=== PATIENT | male | born 1950 | race Caucasian/White ===

== ENCOUNTER 2016-07-19 14:10 | Inpatient (IN) | payer MEDICARE, OTHER ==
[~2016-07-19] VITALS: Ht 177.8 cm; Wt 93.8 kg
[~2016-07-19 14:10] MED LIST: CILO50TA PO; GLIP5 PO; LISI-360 PO; NEUR400C PO; NOVO7030P2 SQ; PRIL40CA PO; SILD20TA PO; SIMV20TA PO
[2016-07-20] VITALS (9 sets, daily range): BP systolic 128–157; BP diastolic 67–74; PULSE 61–69; RESP 18–22; TEMP 98.2–98.5; O2SAT 95–96
[2016-07-20] MEDS ORDERED: METOPROLOL TARTRATE 25 MG TAB PO PRN (17:00)
[2016-07-20] MEDS: SODIUM CHLORID 0.9% 500 ML IV SCH (17:00)
[2016-07-20] MEDS: LACTATED RINGER'S 1000 ML IV SCH (17:00)
[2016-07-20] MEDS ORDERED: INSULIN HUMAN REGULAR 1,000 UNITS/10 ML VIAL SQ PRN (17:00)
[2016-07-20] MEDS ORDERED: ACETAMINOPHEN 325 MG TAB PO PRN (17:15)
[2016-07-20] MEDS ORDERED: CEFAZOLIN 500 MG in NS IRR BTL 500 ML IRRIGATION SCH (17:15)
[2016-07-20] MEDS ORDERED: PAPAVERINE 60 MG-NITROGLYCERIN 100 MCG-DILTIAZEM 100 MG in NS 100 ML IRRIGATION SCH ×4 (17:15)
[2016-07-20] MEDS ORDERED: MAGNESIUM HYDROXIDE SUSP 30 ML CUP PO PRN (17:15)
[2016-07-20] MEDS ORDERED: ONDANSETRON HCL 4 MG/2 ML VIAL IV PRN (17:15)
[2016-07-20] MEDS ORDERED: CHLORHEXIDINE GLUCONATE 4% SOLN 120 ML BTL TOPICAL SCH (17:15)
[2016-07-20] MEDS ORDERED: INSULIN REGULAR 100 UNITS in NS 100 ML IV SCH (17:15)
[2016-07-20] MEDS ORDERED: SODIUM CHLORIDE 0.9% FLUSH 5 ML FLUSH IV FLUSH PRN (17:15)
[2016-07-20] MEDS ORDERED: METOPROLOL TARTRATE 25 MG TAB PO SCH (17:15)
[2016-07-20] MEDS ORDERED: MEDIUM DOSE INSULIN NOVOLIN REGULAR SUPPLEMENTAL SCALE SQ SCH (17:26)
[2016-07-20] MEDS ORDERED: GLUCAGON 1 MG/ML VIAL OTHER PRN (17:30)
[2016-07-20] MEDS ORDERED: DEXTROSE 50% IN WATER 50 ML VIAL(D50) IV PUSH PRN (17:30)
[2016-07-20] MEDS: GABAPENTIN 100 MG CAP PO SCH (18:42)
[2016-07-20] MEDS: ASPIRIN EC 81 MG TABEC PO SCH (18:44)
[2016-07-20] MEDS: DOCUSATE SODIUM 100 MG CAP PO SCH (20:21)
[2016-07-20] MEDS: METOPROLOL TARTRATE 25 MG TAB PO SCH (20:22)
[2016-07-20] MEDS: ZOLPIDEM TARTRATE 5 MG TAB PO PRN (20:22)
[2016-07-20] MEDS: ATORVASTATIN 40 MG TAB PO SCH (20:22)
[2016-07-20] MEDS: SODIUM CHLORIDE 0.9% FLUSH 5 ML FLUSH IV FLUSH SCH (20:23)
[2016-07-20] MEDS: INSULIN HUMAN NPH/R 70/30 1,000 UNITS/10 ML VIAL SQ SCH (20:25)
[2016-07-20] MEDS: MEDIUM DOSE INSULIN NOVOLOG SUPPLEMENTAL SCALE SQ SCH (20:32)
[2016-07-21] VITALS (24 sets, daily range): BP systolic 134–164; BP diastolic 62–80; PULSE 53–69; RESP 16–26; TEMP 97.1–98.1; O2SAT 97–98
[2016-07-21 04:59] LABS: BLOOD, URINE NEG (NEG); COMMENT (UR) CULT NOT INDICATED; CULTURE IF INDICATED CULT NOT INDICATED; GLUCOSE,URINE 1000 mg/dL (NEG); KETONE, URINE NEG (NEG); MUCUS URINE FEW /lpf (OCC); NITRITE,URINE NEG (NEG); SQUAMOUS EPITHELIAL CELL URINE <1 /hpf (0-5); URINE COLOR YELLOW (YELLW/STRAW)
[2016-07-21 05:43] LABS: AUTOMATED NEUTROPHIL # 4.3 TH/MM3 (1.8-7.7); BASOPHIL % 0.3 % (0.0-2.0); EOSINOPHIL # 0.2 TH/MM3 (0-0.4); EOSINOPHIL % 2.5 % (0.0-4.0); HEMATOCRIT 42.3 % (39.0-51.0); HEMO FLAGS DIFF FINAL; LYMPH % 23.7 % (9.0-44.0); LYMPHOCYTE # 1.5 TH/MM3 (1.0-4.8); MEAN CELL VOLUME 88.9 FL (80.0-100.0); MEAN CORPUSCULAR HEMOGLOBIN 31.1 PG (27.0-34.0); MONO % 7.8 % (0.0-8.0); NEUT % 65.7 % (16.0-70.0); PLATELET COUNT 168 TH/MM3 (150-450); RED BLOOD COUNT 4.76 MIL/MM3 (4.50-5.90); RED CELL DISTRIBUTION WIDTH 12.8 % (11.6-17.2); WHITE BLOOD COUNT 6.5 TH/MM3 (4.0-11.0)
[2016-07-21] MEDS: MEDIUM DOSE INSULIN NOVOLOG SUPPLEMENTAL SCALE SQ SCH ×4 (05:45→21:41)
[2016-07-21 05:55] LABS: BICARBONATE 24.3 MEQ/L (21.0-32.0); POTASSIUM 4.2 MEQ/L (3.5-5.1)
[2016-07-21 06:29] LABS: PROTHROMBIN TIME - PATIENT 10.5 SEC (9.8-11.6)
[2016-07-21] MEDS: METOPROLOL TARTRATE 25 MG TAB PO SCH ×2 (08:43→21:41)
[2016-07-21] MEDS: DOCUSATE SODIUM 100 MG CAP PO SCH ×2 (08:43→21:41)
[2016-07-21] MEDS: GABAPENTIN 100 MG CAP PO SCH ×3 (08:43→18:26)
[2016-07-21] MEDS: SODIUM CHLORIDE 0.9% FLUSH 5 ML FLUSH IV FLUSH SCH ×2 (08:44→21:54)
[2016-07-21] MEDS: ACETAMINOPHEN/HYDROcodone 325 MG/5 MG TAB PO PRN ×2 (08:44→17:03)
[2016-07-21] MEDS: ASPIRIN EC 81 MG TABEC PO SCH (08:44)
[2016-07-21] MEDS: INSULIN HUMAN NPH/R 70/30 1,000 UNITS/10 ML VIAL SQ SCH ×2 (08:44→21:41)
--- NOTE | 2016-07-21 09:21 | RADRPT ---
EXAM DATE/TIME: 07/21/2016 08:10 [facility] COMPARISON: US CAROTID ARTERIES, November 23, 2015, 2:41. INDICATIONS : Pre-op cardiac surgery. MEDICAL HISTORY : Dementia. Hypercholesterolemia. Hypertension. Gastroesophageal reflux. GERD. Diabetes. SURGICAL HISTORY : Neck surgery. Left leg surgery. ENCOUNTER: Subsequent ACUITY: 1 day PAIN SCORE: 0/10 LOCATION: Bilateral neck PEAK SYSTOLIC VELOCITIES (cm/sec): ICA/CCA RATIO: Right: 1.3 Left: 0.8 ICA: Right: 88 Left: 78 CCA: Right: 70 Left: 95 ECA: Right: 88 Left: 195 VERTEBRAL: Right: 66 antegrade Left: 58 antegrade Elevated flow velocities and ICA/CCA ratios have been found to correlate with increased degrees of vessel stenosis, calculated as percentage of diameter relative to a normal segment of distal ICA/CCA FINDINGS: RIGHT CAROTID: Mild plaque of the bulb and proximal internal carotid artery. LEFT CAROTID: Mild plaque of the bulb and proximal internal carotid artery. VERTEBRAL ARTERIES: Antegrade flow is seen in both vertebral arteries. MISCELLANEOUS: None. CONCLUSION: Mild atherosclerotic plaque of both carotid bifurcations. No hemodynamically significant narrowing. Michael Luque MD on July 21, 2016 at 9:19 Board Certified Radiologist. This report was verified electronically.
--- NOTE | 2016-07-21 09:23 | RADRPT ---
EXAM DATE/TIME: 07/21/2016 07:19 [facility] COMPARISON: No previous studies available for comparison. INDICATIONS : Pre-op cardiac surgery. MEDICAL HISTORY : Dementia. Hypercholesterolemia. Gastroesophageal reflux disease. Hypertension. GERD. Diabetes. SURGICAL HISTORY : Neck surgery. Left leg surgery. ENCOUNTER: Initial ACUITY: 1 day PAIN SCORE: 0/10 LOCATION: Bilateral legs. TECHNIQUE: Venous ultrasound of the left and right leg was performed from the inguinal ligament to the proximal calf. Real-time, color Doppler and spectral tracing, compression and augmentation techniques were us ed. FINDINGS: RIGHT LEG: There is normal compressibility of the deep venous system from the inguinal region to the proximal ca lf. No echogenic clot is seen in the lumen of the common femoral, femoral, popliteal, and posterior tibial veins. There is a normal response of the venous system to proximal and distal augmentation an d respiration. LEFT LEG: There is normal compressibility of the deep venous system from the inguinal region to the proximal ca lf. No echogenic clot is seen in the lumen of the common femoral, femoral, popliteal, and posterior tibial veins. There is a normal response of the venous system to proximal and distal augmentation an d respiration. CONCLUSION: Normal. No DVT of either lower extremity. Michael Luque MD on July 21, 2016 at 9:21 Board Certified Radiologist. This report was verified electronically.
--- NOTE | 2016-07-21 09:34 | RADRPT ---
EXAM DATE/TIME: 07/21/2016 07:32 [facility] COMPARISON: No previous studies available for comparison. INDICATIONS : Pre-op cardiac surgery. MEDICAL HISTORY : Hypercholesterolemia. Dementia. Gastroesophageal reflux disease. Hypertension. GERD. Diabetes. SURGICAL HISTORY : Neck surgery. Left leg surgery. ENCOUNTER: Initial ACUITY: 1 day PAIN SCORE: 0/10 LOCATION: Bilateral legs. GREATER SAPHENOUS VEIN THIGH: PROXIMAL: Right 5 mm Left 5 mm MID: Right 4 mm Left 3 mm DISTAL: Right 3 mm Left 2 mm CALF: PROXIMAL: Right 2 mm Left 2 mm MID: Right 2 mm Left 2 mm DISTAL: Right 3 mm Left 2 mm FINDINGS: The venous system of the lower extremities are patent by color Doppler imaging. Measurements of the leg veins (in mm) are listed above. CONCLUSION: Study within normal limits. Vessel measurements as above. Michael Luque MD on July 21, 2016 at 9:32 Board Certified Radiologist. This report was verified electronically.
[2016-07-21] MEDS: SODIUM CHLORID 0.9% 500 ML IV SCH (09:40)
--- NOTE | 2016-07-21 10:18 | PD.CAR.PN ---
CVT Progress Note Subjective/Hospital Course: Pain free Awaiting cath films from [facility] Objective: Vital Signs Date Time Temp Pulse Resp B/P Pulse Ox O2 Delivery O2 Flow Rate FiO2 07/21/16 09:00 58 07/21/16 08:00 58 07/21/16 07:15 62 07/21/16 07:15 97.8 62 18 154/70 97 07/21/16 06:00 58 07/21/16 05:00 68 07/21/16 04:00 97.9 63 22 163/80 97 07/21/16 04:00 59 07/21/16 03:00 62 07/21/16 02:00 62 07/21/16 01:00 58 07/21/16 00:00 59 07/21/16 00:00 98.1 61 22 134/62 97 07/20/16 23:00 63 07/20/16 22:00 64 07/20/16 21:00 69 07/20/16 20:00 63 07/20/16 20:00 98.5 64 22 128/67 95 07/20/16 19:00 67 07/20/16 18:00 67 07/20/16 17:00 67 07/20/16 16:15 98.2 61 18 157/74 96 07/20/16 16:00 65 Labs: Laboratory Tests Test 07/21/16 07/21/16 07/21/16 07/21/16 01:00 04:30 05:24 05:30 Nasal Screen MRSA (PCR) NEGATIVE (NEGATIVE) Urine Color YELLOW (YELLW/STRAW) Urine Turbidity CLEAR (CLEAR) Urine pH 6.0 (5.0-8.5) Urine Specific [place] 1.028 (1.002-1.035) Urine Protein TRACE mg/dL (NEG-TRACE) Urine Glucose (UA) 1000 mg/dL (NEG) Urine Ketones NEG mg/dL (NEG) Urine Occult Blood NEG (NEG) Urine Nitrite NEG (NEG) Urine Bilirubin NEG (NEG) Urine Urobilinogen LESS THAN 2.0 MG/DL (LESS THAN 2.0) Urine Leukocyte Esterase NEG (NEG) Urine WBC 1 /hpf (0-5) Urine Squamous Epithelial <1 /hpf (0-5) Cells Urine Mucus FEW /lpf (OCC) Microscopic Urinalysis Comment CULT NOT INDICATED White Blood Count 6.5 TH/MM3 (4.0-11.0) Red Blood Count 4.76 MIL/MM3 (4.50-5.90) Hemoglobin 14.8 GM/DL (13.0-17.0) Hematocrit 42.3 % (39.0-51.0) Mean Corpuscular Volume 88.9 FL (80.0-100.0) Mean Corpuscular Hemoglobin 31.1 PG (27.0-34.0) Mean Corpuscular Hemoglobin 35.0 % Concent (32.0-36.0) Red Cell Distribution Width 12.8 % (11.6-17.2) Platelet Count 168 TH/MM3 (150-450) Mean Platelet Volume 8.2 FL (7.0-11.0) Neutrophils (%) (Auto) 65.7 % (16.0-70.0) Lymphocytes (%) (Auto) 23.7 % (9.0-44.0) Monocytes (%) (Auto) 7.8 % (0.0-8.0) Eosinophils (%) (Auto) 2.5 % (0.0-4.0) Basophils (%) (Auto) 0.3 % (0.0-2.0) Neutrophils # (Auto) 4.3 TH/MM3 (1.8-7.7) Lymphocytes # (Auto) 1.5 TH/MM3 (1.0-4.8) Monocytes # (Auto) 0.5 TH/MM3 (0-0.9) Eosinophils # (Auto) 0.2 TH/MM3 (0-0.4) Basophils # (Auto) 0.0 TH/MM3 (0-0.2) CBC Comment DIFF FINAL Differential Comment Prothrombin Time 10.5 SEC (9.8-11.6) Prothromb Time International 1.0 RATIO Ratio Sodium Level 137 MEQ/L (136-145) Potassium Level 4.2 MEQ/L (3.5-5.1) Chloride Level 102 MEQ/L (98-107) Carbon Dioxide Level 24.3 MEQ/L (21.0-32.0) Anion Gap 11 MEQ/L (5-15) Blood Urea Nitrogen 19 MG/DL (7-18) Creatinine 0.85 MG/DL (0.60-1.30) Estimat Glomerular Filtration 90 ML/MIN (>89) Rate Random Glucose 342 MG/DL (74-106) Calcium Level 9.1 MG/DL (8.5-10.1) Blood Type A POSITIVE A POSITIVE Antibody Screen NEGATIVE Crossmatch Leukocyte-Reduced Red Blood Cells Blood Bank Comment Result Diagram: 07/21/1652307/21/1624 Kierra Sanz MD Jul 21, 2016 10:18
--- NOTE | 2016-07-21 10:42 | RADRPT ---
EXAM DATE/TIME: 07/21/2016 10:04 [facility] COMPARISON: CHEST SINGLE AP, November 22, 2015, 17:40. INDICATIONS : Evaluate for Pneumonia, Pneumothorax, or Communicable Disease. Preop CABG. MEDICAL HISTORY : Dementia. Hypercholesterolemia. Hypertension. Gastroesophageal reflux. GERD. Diabetes. SURGICAL HISTORY : Neck surgery. Left leg surgery. ENCOUNTER: Initial ACUITY: 1 day PAIN SCORE: 0/10 LOCATION: Bilateral chest FINDINGS: A single view of the chest demonstrates the lungs to be symmetrically aerated without evidence of mas s, infiltrate or effusion. The cardiomediastinal contours are unremarkable. Osseous structures are intact. CONCLUSION: No evidence of acute cardiopulmonary disease. Michael Luque MD on July 21, 2016 at 10:40 Board Certified Radiologist. This report was verified electronically.
[2016-07-21] MEDS: LACTATED RINGER'S 1000 ML IV SCH (17:00)
[2016-07-21] MEDS: ZOLPIDEM TARTRATE 5 MG TAB PO PRN (21:42)
[2016-07-21] MEDS: ATORVASTATIN 40 MG TAB PO SCH (21:50)
[2016-07-22] VITALS (25 sets, daily range): BP systolic 112–157; BP diastolic 54–79; PULSE 49–76; RESP 16–18; TEMP 97.9–98.5; O2SAT 95–97
[2016-07-22] MEDS: MEDIUM DOSE INSULIN NOVOLOG SUPPLEMENTAL SCALE SQ SCH ×4 (06:06→21:27)
[2016-07-22] MEDS: GABAPENTIN 100 MG CAP PO SCH ×3 (08:38→16:34)
[2016-07-22] MEDS: ASPIRIN EC 81 MG TABEC PO SCH (08:39)
[2016-07-22] MEDS: DOCUSATE SODIUM 100 MG CAP PO SCH ×2 (08:39→21:27)
[2016-07-22] MEDS: INSULIN HUMAN NPH/R 70/30 1,000 UNITS/10 ML VIAL SQ SCH ×2 (08:39→21:28)
[2016-07-22] MEDS: METOPROLOL TARTRATE 25 MG TAB PO SCH ×2 (08:39→21:00)
[2016-07-22] MEDS: SODIUM CHLORIDE 0.9% FLUSH 5 ML FLUSH IV FLUSH SCH ×2 (09:00→21:27)
[2016-07-22] MEDS ORDERED: PANTOPRAZOLE SOD 40 MG DELAYED RELEASE TAB PO ONE (16:30)
[2016-07-22] MEDS: ACETAMINOPHEN/HYDROcodone 325 MG/5 MG TAB PO PRN (16:35)
--- NOTE | 2016-07-22 16:46 | PD.CAR.PN ---
CVT Progress Note Subjective/Hospital Course: sts discussed with pt RISK SCORES About the STS Risk Calculator Procedure: CAB Only Risk of Mortality: 0.647% Morbidity or Mortality: 7.845% Long Length of Stay: 3.261% Short Length of Stay: 59.262% Permanent Stroke: 0.418% Prolonged Ventilation: 4.792% DSW Infection: 0.576% Renal Failure: 1.462% Reoperation: 3.576% Objective: Vital Signs Date Time Temp Pulse Resp B/P Pulse Ox O2 Delivery O2 Flow Rate FiO2 07/22/16 15:00 68 07/22/16 14:00 61 07/22/16 13:00 60 07/22/16 12:00 62 07/22/16 11:00 62 07/22/16 11:00 98.0 61 17 112/54 95 07/22/16 10:00 66 07/22/16 09:00 59 07/22/16 08:00 97.9 63 17 151/73 96 07/22/16 08:00 63 07/22/16 07:00 62 07/22/16 06:00 55 07/22/16 05:00 62 07/22/16 04:00 52 07/22/16 03:00 53 07/22/16 03:00 98.0 55 18 157/74 97 07/22/16 02:00 49 07/22/16 01:00 55 07/22/16 00:00 59 07/21/16 23:00 97.1 61 17 143/74 98 07/21/16 23:00 54 07/21/16 22:00 61 07/21/16 21:00 57 07/21/16 20:00 69 07/21/16 19:00 60 07/21/16 19:00 97.7 66 26 164/71 98 07/21/16 18:00 62 07/21/16 17:00 62 Result Diagram: 07/21/16 0524 07/21/16 0524 Freda Betancourt Jul 22, 2016 16:46
[2016-07-22] MEDS: LACTATED RINGER'S 1000 ML IV SCH (17:00)
[2016-07-22] MEDS: ATORVASTATIN 40 MG TAB PO SCH (21:26)
[2016-07-23] VITALS (26 sets, daily range): BP systolic 110–157; BP diastolic 58–83; PULSE 56–76; RESP 16–18; TEMP 97.6–98.3; O2SAT 94–99
[2016-07-23] MEDS: MEDIUM DOSE INSULIN NOVOLOG SUPPLEMENTAL SCALE SQ SCH ×4 (06:27→21:51)
--- NOTE | 2016-07-23 08:08 | MH ---
cc: CHEYENNE UPTON DATE OF ADMISSION 07/20/2016 DATE OF 1950 HISTORY OF THE PRESENT ILLNESS A 66-year-old male, a patient of [facility] at the [facility], Dr. Zan Hubbard, lives in the local area but was going to a restaurant in [place] and before they got in he started having some excruciating chest pain, about 10/10 while walking, resolved with rest, associated with some diaphoresis. He had no nausea or vomiting. It lasted about 5 minutes. No similar history. No history of cardiac disease. No recent fever, chills, cough. Presented to the emergency room with unstable angina. Underwent cardiac cath by Dr. Zan Hubbard on 07/19/2016. There was a right dominant system. The LAD had 80% mid lesion, distal lesion had a 40%, right PDA had 90% stenosis, EF of 50-55%. The patient was transferred to our facility to be evaluated for coronary artery bypass grafting. PAST MEDICAL HISTORY The patient's past medical history significant for: 1. Diabetes mellitus. 2. Gastroesophageal reflux disease. 3. Hyperlipidemia. 4. Hypertension. 5. Peripheral neuropathy. PAST SURGICAL HISTORY Surgeries include: Tonsillectomy. He is [facility] with the [facility] for being exposed to Agent [place]. ALLERGIES INCLUDE METFORMIN. MEDICATIONS Home meds include: 1. Lisinopril 10 p.o. daily. 2. Gabapentin 900 q.i.d. 3. Simvastatin 40 daily. 4. Novolin 70/30. He takes 40 units b.i.d. 5. He takes Viagra p.r.n. 6. Cilostazol 50 mg b.i.d. 7. Omeprazole. 8. Glipizide 5 p.o. daily. FAMILY HISTORY Mother from heart attack at 84. He had an uncle that at 56 from heart attack, two brothers that had heart attacks, one at 55 and one at 60. Father from cancer. SOCIAL HISTORY The patient , retired. One child. He smoked for 40 years two packs, he quit seven years ago. Quit drinking alcohol seven years ago. 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 REVIEW OF SYSTEMS GENERAL: No night sweats, fever, heat or cold intolerance. SKIN: No psoriasis, itching or hives. HEENT: No blurred vision, hearing loss. RESPIRATORY: No cough or shortness of breath. CARDIOVASCULAR: As above in the history of present illness. GASTROINTESTINAL: No diarrhea, vomiting. GENITOURINARY: No burning, frequency, urgency CENTRAL NERVOUS SYSTEM: No history of TIA, CVA, seizure disorder. ENDOCRINOLOGY: Positive for diabetes. No hypothyroidism. PHYSICAL EXAMINATION VITAL SIGNS: On exam blood pressure 112/60, heart rate 60, afebrile. O2 saturation 95% on room air. GENERAL: The patient is awake, alert, in no acute distress. HEENT: Head is normocephalic, atraumatic. Pupils equal and reactive. Oral mucosa pink, moist. NECK: Supple. No JVD. CARDIOVASCULAR: Heart sounds S1-S2, regular rate and rhythm. No rubs, murmurs or gallops. LUNGS: Clear to auscultation. No wheezes, rales or rhonchi. ABDOMEN: Soft, nontender. No masses or organomegaly. EXTREMITIES: No cyanosis, clubbing or edema. LABORATORY DATA ____ screen negative. Hematology, hemoglobin 14, hematocrit of 42, white cell count of 6.5, platelet count 168. Sodium 137, potassium 4.2, BUN 19, creatinine 0.85, random glucose was 342. Urinalysis is unremarkable. IMAGING Chest x-ray with no acute process. Carotid ultrasound, mild plaque of both carotid bifurcations. No hemodynamically significant narrowing. ultrasound of the lower extremities completed, no DVT of either lower extremity. IMPRESSION 1. This is a 66-year-old male with risk factors including age, hypertension, hyperlipidemia, status post heart catheterization with multivessel disease and EF of 50-55%. Cardiac films have been reviewed by Dr. Cheyenne Upton. Plan will be for coronary artery bypass grafting on Friday. Procedures, alternatives and risks have been discussed with the patient. He is agreeable to proceed. STS data will be also discussed with the patient and documented in the electronic record. 2. Diabetes mellitus with elevated blood sugars. We will increase his NovoLog 70/30 and re add his Glucotrol. Diabetic diet and executive community planning to speak with the patient. 3. Hyperlipidemia. Continue statin. 4. Hypertension. Stable at this time. We will continue to follow. DICTATED BY: GILMA Maddox Cheyenne MD MATILDE Corea/VALERIO /4:39 PM /8:07 AM
[2016-07-23] MEDS: PANTOPRAZOLE SOD 40 MG DELAYED RELEASE TAB PO SCH (08:38)
[2016-07-23] MEDS: DOCUSATE SODIUM 100 MG CAP PO SCH ×2 (08:39→21:44)
[2016-07-23] MEDS: GABAPENTIN 100 MG CAP PO SCH ×3 (08:39→18:14)
[2016-07-23] MEDS: ASPIRIN EC 81 MG TABEC PO SCH (08:40)
[2016-07-23] MEDS: METOPROLOL TARTRATE 25 MG TAB PO SCH ×2 (08:40→21:45)
[2016-07-23] MEDS: INSULIN HUMAN NPH/R 70/30 1,000 UNITS/10 ML VIAL SQ SCH ×2 (08:41→21:44)
[2016-07-23] MEDS: SODIUM CHLORIDE 0.9% FLUSH 5 ML FLUSH IV FLUSH SCH ×2 (08:41→21:45)
[2016-07-23] MEDS ORDERED: GABA300C5 PO (15:03)
[2016-07-23] MEDS ORDERED: SERT-129 PO (15:04)
[2016-07-23] MEDS ORDERED: MELO7.5T4 PO (15:06)
[2016-07-23] MEDS ORDERED: ASPI1TAB69 PO (15:07)
[2016-07-23] MEDS ORDERED: OMEP20TA PO (15:07)
[2016-07-23] MEDS ORDERED: TRAM50TA PO (15:08)
[2016-07-23] MEDS ORDERED: LISI-515 PO (15:09)
[2016-07-23] MEDS ORDERED: CILO100T PO (15:09)
[2016-07-23] MEDS ORDERED: METO25TA6 PO (15:10)
[2016-07-23] MEDS ORDERED: SIMV80TA PO (15:11)
[2016-07-23] MEDS ORDERED: ZOLP10TA3 PO (15:11)
[2016-07-23] MEDS ORDERED: NOVO7030P2 SQ (15:12)
[2016-07-23] MEDS ORDERED: NITROGLYCERIN 0.4 MG SL 25 TABS/BTL SL PRN (15:45)
--- NOTE | 2016-07-23 15:58 | PD.CAR.PN ---
CVT Progress Note Subjective/Hospital Course: 66/ male transfer from [facility] ED 07/18 c/o of chest pain , no prior cardiac hx , underwent cardiac cath by Dr Christian Hubbard multi vessel disease / 80% mid LAD, Left Circ 70%, PDA 90% EF 50% risk factors: age, DM, HTN, PMH: DM insulin dependent , HTN, 100% disabled from [facility] ( agent orange exposure ) prior heavy tobacco abuse 07/23 await surgery scheduled in am , had slight chest pain this afternoon, relieved with nitro on room air , insulin adjusted for elevated BGM's Objective: GENERAL: SKIN: Warm and dry. HEAD: Normocephalic. EYES: No scleral icterus. No injection or drainage. NECK: Supple, trachea midline. No JVD or lymphadenopathy. CARDIOVASCULAR: Regular rate and rhythm without murmurs, gallops, or rubs. RESPIRATORY: Breath sounds equal bilaterally. No accessory muscle use. GASTROINTESTINAL: Abdomen soft, non-tender, nondistended. MUSCULOSKELETAL: No cyanosis, or edema. BACK: Nontender without obvious deformity. No CVA tenderness. Vital Signs Date Time Temp Pulse Resp B/P Pulse Ox O2 Delivery O2 Flow Rate FiO2 07/23/16 15:00 98.1 66 16 123/64 97 07/23/16 15:00 62 07/23/16 14:00 69 07/23/16 13:00 73 07/23/16 12:00 68 07/23/16 11:00 65 07/23/16 11:00 98.1 62 17 157/83 97 07/23/16 10:00 62 07/23/16 09:00 67 07/23/16 08:00 67 07/23/16 07:30 97.8 64 18 155/77 99 07/23/16 07:00 60 07/23/16 06:00 59 07/23/16 05:00 68 07/23/16 04:00 62 07/23/16 04:00 97.6 64 16 127/74 98 07/23/16 03:00 56 07/23/16 02:00 58 07/23/16 01:00 62 07/23/16 00:00 60 07/22/16 23:30 97.9 71 16 136/67 97 07/22/16 23:00 61 07/22/16 22:00 63 07/22/16 21:00 67 07/22/16 20:00 67 07/22/16 20:00 98.0 65 16 157/79 97 07/22/16 19:00 68 07/22/16 18:00 75 07/22/16 17:00 76 07/22/16 16:00 67 Result Diagram: 07/21/1652307/21/16523 Telemetry: NSR (1) Coronary artery disease Plan: on statin ASA, BB (2) Hypertension Plan: controlled (3) GERD (gastroesophageal reflux disease) Plan: PPI (4) Type 2 diabetes mellitus Plan: on insulin sliding scale, Novolog 70/30 diabetic diet visual educator consult Freda Betancourt Jul 23, 2016 15:58
[2016-07-23] MEDS: LACTATED RINGER'S 1000 ML IV SCH (16:28)
[2016-07-23] MEDS: NITROGLYCERIN 2% OINT 1 GM PACKET TOPICAL SCH ×2 (18:14→22:37)
[2016-07-23] MEDS: ATORVASTATIN 40 MG TAB PO SCH (21:45)
[2016-07-23] MEDS: ZOLPIDEM TARTRATE 5 MG TAB PO PRN (21:51)
[2016-07-24] VITALS (21 sets, daily range): BP systolic 98–146; BP diastolic 53–86; PULSE 61–84; RESP 7–19; TEMP 97.6–98.2; O2SAT 96–99
[2016-07-24] MEDS ORDERED: CALCIUM CHLORIDE 10% SOLN 1 GRAM/10 ML SYR IV ONE (05:00)
[2016-07-24] MEDS ORDERED: PHENYLEPHRINE HCL 10 MG/ML VIAL IV ONE (05:00)
[2016-07-24] MEDS ORDERED: PROTAMINE SULFATE 250 MG/25 ML VIAL IV ONE (05:00)
[2016-07-24] MEDS ORDERED: NITROGLYCERIN-DEXTROSE INJ 250 ML IV ONE (05:00)
[2016-07-24] MEDS ORDERED: HEPARIN SODIUM - SQ 10,000 UNITS/ML VIAL SQ ONE (05:00)
[2016-07-24] MEDS ORDERED: ARTIFICIAL TEARS OPTH OINT 3.5 APPLIC/3.5 GM TUBO ONE (05:00)
[2016-07-24] MEDS ORDERED: GLYCOPYRROLATE 0.2 MG/ML VIAL IV ONE (05:00)
[2016-07-24] MEDS ORDERED: MAGNESIUM SULFATE 1000 MG/2 ML VIAL (PED) IV ONE (05:00)
[2016-07-24] MEDS ORDERED: AMINOCAPROIC ACID INJ 250 MG/ML 20 ML VIAL IV ONE (05:00)
[2016-07-24] MEDS ORDERED: VECURONIUM BROMIDE 10 MG VIAL IV ONE (05:00)
[2016-07-24] MEDS: METOPROLOL TARTRATE 25 MG TAB PO SCH ×2 (05:36→09:00)
[2016-07-24] MEDS: LACTATED RINGER'S 1000 ML IV SCH ×2 (05:45→17:00)
[2016-07-24] MEDS: NITROGLYCERIN 2% OINT 1 GM PACKET TOPICAL SCH (06:00)
[2016-07-24] MEDS ORDERED: SODIUM CHLORID 0.9% 500 ML IV SCH (06:30)
[2016-07-24] MEDS ORDERED: LACTATED RINGER'S 1000 ML IV SCH (06:30)
[2016-07-24] MEDS ORDERED: methylPREDNISolone SOD SUCC 125 MG/2 ML VIAL ONE (06:33)
[2016-07-24] MEDS ORDERED: VANCOMYCIN HCL 1000 MG VIAL ONE (06:33)
[2016-07-24] MEDS ORDERED: HEPARIN SODIUM - SQ 10,000 UNITS/ML VIAL ONE (06:33)
[2016-07-24] MEDS ORDERED: HEPARIN SODIUM - IV 10,000 UNITS/10 ML VIAL ONE ×2 (06:33→07:24)
[2016-07-24] MEDS: MEDIUM DOSE INSULIN NOVOLOG SUPPLEMENTAL SCALE SQ SCH ×4 (07:00→20:18)
[2016-07-24] MEDS ORDERED: CARDIOPLEGIC IRR 1,000 ML ONE (07:23)
[2016-07-24] MEDS ORDERED: POTASSIUM CHLORIDE 40 MEQ/20 ML VIAL ONE (07:24)
[2016-07-24] MEDS ORDERED: MANNITOL INJ 50 ML ONE (07:24)
[2016-07-24] MEDS ORDERED: ALBUMIN HUMAN 25% 12.5 GM/50 ML BAGP IV ONE (07:25)
[2016-07-24] MEDS ORDERED: SODIUM BICARBONATE 8.4% INJ 50 ML ONE (07:25)
[2016-07-24] MEDS: ceFAZolin 2 GM PREMIX 50 ML IV SCH ×3 (08:02→16:46)
[2016-07-24] MEDS: GABAPENTIN 100 MG CAP PO SCH ×3 (09:00→18:40)
[2016-07-24] MEDS: ASPIRIN EC 81 MG TABEC PO SCH (09:00)
[2016-07-24] MEDS: SODIUM CHLORIDE 0.9% FLUSH 5 ML FLUSH IV FLUSH SCH ×2 (09:00→21:38)
[2016-07-24] MEDS: PANTOPRAZOLE SOD 40 MG DELAYED RELEASE TAB PO SCH (09:00)
[2016-07-24] MEDS: INSULIN HUMAN NPH/R 70/30 1,000 UNITS/10 ML VIAL SQ SCH ×2 (09:00→20:18)
[2016-07-24] MEDS: DOCUSATE SODIUM 100 MG CAP PO SCH ×2 (09:00→21:39)
--- NOTE | 2016-07-24 09:01 | RSPPFT ---
DATE OF PROCEDURE: 07/22/16 COMMENTS: Spirometry with FVC of 3.2 predicted 4.2, FEV1 of 2.4 predicted 3.3, FEV1/FVC ratio 77% predicted 79%. IMPRESSION: On the basis of the above, patient's spirometry is within the predicted range.
[2016-07-24] MEDS ORDERED: LACTATED RINGER'S 1000 ML INJ 500 ML IV PRN (10:58)
[2016-07-24] MEDS ORDERED: INSULIN REGULAR (IV INFUSION) 100 UNITS in SODIUM CHLORIDE 0.9% INJ 99 ML IV SCH (11:00)
[2016-07-24] MEDS ORDERED: CLEVIDIPINE INJ 50 ML IV SCH (11:00)
[2016-07-24] MEDS ORDERED: POTASSIUM CHLOR 20 MEQ PREMIX 100 ML IV PRN ×3 (11:00)
[2016-07-24] MEDS ORDERED: MAGNESIUM SULFATE INJ 2 GM in SODIUM CHLORIDE 0.9% INJ 100 ML IV PRN ×4 (11:00)
[2016-07-24] MEDS ORDERED: CALCIUM CHLORIDE INJ 1 GM in SODIUM CHLORIDE 0.9% INJ 100 ML IV PRN (11:00)
[2016-07-24] MEDS ORDERED: oxyCODONE/ACETAMINOPHEN 5 MG/325 MG TAB PO PRN (11:00)
[2016-07-24] MEDS ORDERED: DEXTROSE 50% IN WATER 50 ML VIAL(D50) IV PUSH PRN (11:00)
[2016-07-24] MEDS ORDERED: Post-op Orders (for Pharmacy) MISC OTHER ONE (11:00)
[2016-07-24] MEDS ORDERED: hydrALAZINE HCL 20 MG/ML VIAL IV PRN (11:00)
[2016-07-24] MEDS ORDERED: ACETAMINOPHEN 325 MG TAB PO PRN (11:00)
[2016-07-24] MEDS ORDERED: ACETAMINOPHEN 650 MG SUPP RECTAL PRN (11:00)
[2016-07-24] MEDS ORDERED: POTASSIUM CHLORIDE 20 MEQ CONTROLLED RELEASE TAB PO PRN ×2 (11:00)
[2016-07-24] MEDS ORDERED: SODIUM CHLORIDE 0.9% FLUSH 5 ML FLUSH IV FLUSH PRN (11:00)
[2016-07-24] MEDS ORDERED: CALCIUM CHLORIDE 10% 1 GRAM/10 ML VIAL IV PRN (11:00)
[2016-07-24] MEDS ORDERED: METOPROLOL TARTRATE 5 MG/5 ML VIAL IV PUSH PRN (11:00)
--- NOTE | 2016-07-24 11:10 | PD.OP ---
cc: Cheyenne Upton MD; Zan Hubbard MD Operative Report Date of Surgery: Jul 24, 2016 Preoperative Diagnosis: (1) Coronary artery disease (2) Unstable angina Postoperative Diagnosis: same Procedure: CABG x 3 BOWEN to LAD - good SVG to OM2 - good SVG to PLB - good Anesthesia: Dr. Arias Surgeon: Cheyenne Upton Orange Picker(s): [place] Operation and Findings: The risks, benefits, complications, treatment options, and expected outcomes were discussed with the patient. The possibilities of reaction to medication, pulmonary aspiration, perforation of viscus, bleeding, recurrent infection, the need for additional procedures, failure to diagnose a condition, and creating a complication requiring transfusion or operation were discussed with the patient. The patient concurred with the proposed plan, giving informed consent. The site of surgery properly noted/marked. The patient was taken to Operating Room, identified as Frederick Nugent and the procedure verified as CABG, EVH, RAHEEM. A Time Out was held and the above information confirmed. Standard monitoring lines and Jensen catheter were placed. General anesthesia was induced. The patient was prepped and draped in a sterile fashion. A median sternotomy was performed and electrocautery was used to obtain hemostasis. The left internal mammary artery was procured as a pedicle from the 7th rib to the 1st rib in the usual manner. Simultaneously left greater saphenous vein was procured from the left leg using a minimally invasive endoscopic technique. The vein was prepared for anastomosis and the leg wound was irrigated and closed in 2 layers. The pericardium was opened and a pericardial sling was created using interrupted 0 silk sutures. The patient was heparinized for cardiopulmonary bypass and the distal mammary pedicle was instrumented for anastomosis. The heart was instrumented for cardiopulmonary bypass in the usual manner. Antegrade blood cardioplegia was employed. The patient was placed on cardiopulmonary bypass. An aortic cross-clamp was applied and the heart was arrested using cold blood cardioplegia. Antegrade cardioplegia was administered after he each anastomosis. After adequate arrest, the distal right coronary circulation was investigated and the distal PLB was opened with a [place] blade and found to be a 1.5 millimeter good target. Saphenous vein was approximated to the PLB artery using a running 7 0 Prolene suture. The graft was measured for length and orientation and the proximal anastomosis was constructed to the ascending aorta using a running 5 0 Prolene suture after creating an aortotomy with a 5 millimeter punch. The 2nd circumflex marginal artery was then opened with a [place] blade and found to be a 1.5 millimeter good target. Saphenous vein was approximated to the OM2 artery using a running 7 0 Prolene suture. The graft was measured for length and orientation and was suspended from the pericardium. The distal LAD was opened with a [place] blade and found to be a 1.5 millimeter good target. The left internal mammary artery was approximated to the LAD using a running 7 0 Prolene suture. The pedicle was attached to the epicardium using interrupted 5 0 silk suture. The patient was systemically rewarmed and received a hotshot dose of warm blood cardioplegia. The aorta was vented and the proximal anastomosis to the OM2 graft was accomplished using a running 5 0 Prolene suture after creating an aortotomy was a 5 millimeter punch. The cross -clamp was removed and all proximal and distal anastomoses were examined for hemostasis. The patient was weaned from cardiopulmonary bypass. Protamine was given. There was no adverse reaction. Decannulation was carried out without incident. Wound was checked for hemostasis which was obtained using electrocautery. A 36 Russian mediastinal and 32 Russian left pleural chest was were placed and secured to the skin with 0 silk suture. The sternum was closed with stainless steel wire. The fascia was closed with 1. PDS. The subcutaneous tissue was closed using a running 2-0 Vicryl suture. The skin was closed with 4- 0 Monocryl. Sterile dressings were placed. At the end of the operation, all sponge, instruments, and needle counts were correct. The patient was transferred to the CICU in stable condition. Findings: Good LV function and distal targets XC: 50 min CPB: 60 min Drains: mediastinal x 1 pleural x 1 Complications: none Disposition: to CVICU in stable condition Cheyenne Upton MD Jul 24, 2016 11:10
[2016-07-24] MEDS ORDERED: DEXMEDETOMIDINE INJ 50 ML ONE (12:09)
[2016-07-24] MEDS: ACETAMINOPHEN 1000 MG/100 ML VIAL IV SCH ×3 (12:33→21:38)
[2016-07-24] MEDS ORDERED: fentaNYL CITRATE 1000 MCG/20 ML VIAL ONE (12:38)
[2016-07-24] MEDS ORDERED: MIDAZOLAM HCL 5 MG/5 ML VIAL ONE (12:38)
--- NOTE | 2016-07-24 13:07 | RADRPT ---
EXAM DATE/TIME: 07/24/2016 11:57 [facility] COMPARISON: CHEST SINGLE AP, July 21, 2016, 10:04. INDICATIONS : Post cabg. MEDICAL HISTORY : Hypertension. Dementia. SURGICAL HISTORY : None. ENCOUNTER: Initial ACUITY: 3 days PAIN SCORE: Non-responsive. LOCATION: Bilateral chest FINDINGS: ET tube, nasogastric tube, central venous catheter, mediastinal drain and left chest tube are in good position. The heart is minimally enlarged. The pulmonary vascularity is normal. The mediastinum ap pears appropriate. The lungs are clear. CONCLUSION: Satisfactory post operative appearance to the chest. Erik Ann MD FACR on July 24, 2016 at 13:02 Board Certified Radiologist. This report was verified electronically.
[2016-07-24] MEDS: KETOROLAC TROMETHAMINE 30 MG/ML (IVP) VIAL IV PUSH PRN (14:35)
[2016-07-24] MEDS ORDERED: RESP: ALBUTEROL 2.5 MG/IPRATROPIUM 0.5 MG NEB (PRN) NEB (14:45)
[2016-07-24] MEDS ORDERED: RESP: RACEPINEPHRINE 2.25% 0.5 ML NEB NEB PRN (14:45)
[2016-07-24] MEDS ORDERED: SODIUM CHLORID 0.9% 500 ML INJ 500 ML IV ONE (15:40)
[2016-07-24] MEDS ORDERED: SODIUM CHLOR 0.9% 250 ML INJ 250 ML IV ONE (15:40)
[2016-07-24] MEDS ORDERED: SODIUM CHLORIDE 0.9% INJ 100 ML IV ONE (15:40)
[2016-07-24] MEDS ORDERED: NORMOSOL R INJ 2,000 ML IV ONE (15:40)
[2016-07-24] MEDS ORDERED: LACTATED RINGER'S 1000 ML INJ 2,000 ML IV ONE (15:40)
[2016-07-24] MEDS: ONDANSETRON HCL 4 MG/2 ML VIAL IV PUSH PRN ×2 (15:48→21:37)
[2016-07-24] MEDS: RESP: ALBUTEROL 2.5 MG/IPRATROPIUM 0.5 MG NEB (SCH) NEB ×2 (15:59→20:07)
[2016-07-24] MEDS: AMIODARONE 200 MG TAB PO SCH ×2 (18:40→21:38)
[2016-07-24] MEDS: ATORVASTATIN 40 MG TAB PO SCH (21:38)
[2016-07-25] VITALS (16 sets, daily range): BP systolic 126–159; BP diastolic 56–79; PULSE 84–103; RESP 16–28; TEMP 98–98.9; O2SAT 93–99
[2016-07-25] MEDS: ceFAZolin 2 GM PREMIX 50 ML IV SCH ×3 (00:12→16:12)
[2016-07-25] MEDS: KETOROLAC TROMETHAMINE 30 MG/ML (IVP) VIAL IV PUSH PRN ×2 (02:57→19:32)
[2016-07-25] MEDS: RESP: ALBUTEROL 2.5 MG/IPRATROPIUM 0.5 MG NEB (SCH) NEB ×4 (04:25→20:30)
[2016-07-25] MEDS: AMIODARONE 200 MG TAB PO SCH ×3 (05:10→21:35)
[2016-07-25] MEDS: PANTOPRAZOLE SOD 40 MG DELAYED RELEASE TAB PO SCH (05:10)
[2016-07-25] MEDS: ACETAMINOPHEN/HYDROcodone 325 MG/5 MG TAB PO PRN ×6 (05:11→21:34)
[2016-07-25] MEDS: ACETAMINOPHEN 1000 MG/100 ML VIAL IV SCH (05:11)
[2016-07-25 05:26] LABS: HEMATOCRIT 32.9 % (39.0-51.0); MEAN CELL VOLUME 88.7 FL (80.0-100.0); MEAN CORPUSCULAR HEMOGLOBIN 31.5 PG (27.0-34.0); MEAN CORPUSCULAR HGB CONC 35.5 % (32.0-36.0); PLATELET COUNT 124 TH/MM3 (150-450); RED BLOOD COUNT 3.71 MIL/MM3 (4.50-5.90); RED CELL DISTRIBUTION WIDTH 13.2 % (11.6-17.2); REVIEW FLAG FINAL; WHITE BLOOD COUNT 11.8 TH/MM3 (4.0-11.0)
[2016-07-25 05:44] LABS: BICARBONATE 24.2 MEQ/L (21.0-32.0); MAGNESIUM 2.2 MG/DL (1.5-2.5); POTASSIUM 4.2 MEQ/L (3.5-5.1)
[2016-07-25] MEDS: MEDIUM DOSE INSULIN NOVOLOG SUPPLEMENTAL SCALE SQ SCH (05:48)
--- NOTE | 2016-07-25 06:22 | RADRPT ---
EXAM DATE/TIME: 07/25/2016 04:28 [facility] COMPARISON: CHEST SINGLE AP, July 24, 2016, 11:57. INDICATIONS : Shortness of breath, possible pulmonary disease. MEDICAL HISTORY : Hypertension. SURGICAL HISTORY : CABG. ENCOUNTER: Subsequent ACUITY: 4 - 6 days PAIN SCORE: 0/10 LOCATION: Bilateral chest FINDINGS: Right central line in superior vena cava. Central and left chest tube present without significant pne umothorax. Mild subsegmental air space disease at the bases. Cardiomegaly. CONCLUSION: 1. Central and left chest tube present without pneumothorax. Cardiomegaly. Mild subsegmental air spac e disease at the bases. Interval extubation. Jose Daniel Sarmiento MD on July 25, 2016 at 6:19 Board Certified Radiologist. This report was verified electronically.
[2016-07-25] MEDS: GABAPENTIN 100 MG CAP PO SCH ×3 (08:48→17:45)
[2016-07-25] MEDS: DOCUSATE SODIUM 100 MG CAP PO SCH ×2 (08:48→19:37)
[2016-07-25] MEDS: ASPIRIN EC 81 MG TABEC PO SCH (08:49)
[2016-07-25] MEDS: SODIUM CHLORIDE 0.9% FLUSH 5 ML FLUSH IV FLUSH SCH ×2 (08:49→19:37)
[2016-07-25] MEDS: INSULIN HUMAN NPH/R 70/30 1,000 UNITS/10 ML VIAL SQ SCH ×2 (09:00→21:35)
[2016-07-25] MEDS ORDERED: ASPIRIN 81 MG CHEW TAB PO SCH (09:00)
[2016-07-25] MEDS ORDERED: GLUCAGON 1 MG/ML VIAL OTHER PRN (11:00)
[2016-07-25] MEDS ORDERED: DEXTROSE 50% IN WATER 50 ML VIAL(D50) IV PRN (11:00)
[2016-07-25] MEDS ORDERED: INSULIN ASPAR PROT 70/30 1,000 UNITS/10 ML VIAL SQ ONE (11:00)
[2016-07-25] MEDS ORDERED: SOD PHOSPHATE/SOD BIPHOSPHATE (ADULT) ENEMA 133ML RECTAL PRN (11:00)
[2016-07-25] MEDS ORDERED: BISACODYL 10 MG SUPP RECTAL PRN (11:00)
[2016-07-25] MEDS ORDERED: PILL SPLITTER OTHER PRN (11:30)
[2016-07-25] MEDS: METOPROLOL TARTRATE 25 MG TAB PO SCH ×2 (13:04→19:36)
--- NOTE | 2016-07-25 13:18 | PD.CAR.PN ---
CVT Progress Note CVT: POD #: 1 Subjective/Hospital Course: 66/ male transfer from [facility] ED 07/18 c/o of chest pain , no prior cardiac hx , underwent cardiac cath by Dr Christian Hubbard multi vessel disease / 80% mid LAD, Left Circ 70%, PDA 90% EF 50% risk factors: age, DM, HTN, PMH: DM insulin dependent , HTN, 100% disabled [facility] [place] ( [place] ) prior heavy tobacco abuse 07/23 await surgery scheduled in am , had slight chest pain this afternoon, relieved with nitro on room air , insulin adjusted for elevated BGM's 07/24 surgery: CABG x 3, BOWEN to LAD - good, SVG to OM2 - good, SVG to PLB - good 07/24/1607/25 up in chair, on nasal cannula feels fair , weaning off insulin gtt start low dose BB ok to transfer to stepdown unit remains in NSR Objective: GENERAL: SKIN: Warm and dry.prevena to chest incision to leg intact and well approximated HEAD: Normocephalic. EYES: No scleral icterus. No injection or drainage. NECK: Supple, trachea midline. No JVD or lymphadenopathy. CARDIOVASCULAR: Regular rate and rhythm without murmurs, gallops, or rubs. RESPIRATORY: Breath sounds equal bilaterally. No accessory muscle use. chest tube to wall suction, no air leak / drained 200cc/ 12 hrs , no air leak GASTROINTESTINAL: Abdomen soft, non-tender, nondistended. MUSCULOSKELETAL: No cyanosis, or edema. BACK: Nontender without obvious deformity. No CVA tenderness. Vital Signs Date Time Temp Pulse Resp B/P Pulse Ox O2 Delivery O2 Flow Rate FiO2 07/25/16 11:03 99 07/25/16 11:01 98.3 99 19 136/69 99 Arterial Line 07/25/16 09:14 96 Nasal Cannula 2.00 07/25/16 07:25 98.7 98 19 130/68 97 126/61 07/25/16 07:24 96 07/25/16 03:22 98.0 87 16 130/65 97 126/56 07/25/16 03:16 84 07/24/16 23:07 82 07/24/16 23:07 97.8 84 16 120/64 97 126/82 07/24/16 19:21 98.2 75 16 113/64 97 109/56 07/24/16 19:00 78 07/24/16 18:00 74 07/24/16 17:00 68 07/24/16 16:00 75 07/24/16 15:00 97.8 75 16 118/68 98 118/63 07/24/16 15:00 75 07/24/16 14:00 74 Labs: Laboratory Tests Test 07/25/16 04:50 White Blood Count 11.8 TH/MM3 (4.0-11.0) Red Blood Count 3.71 MIL/MM3 (4.50-5.90) Hemoglobin 11.7 GM/DL (13.0-17.0) Hematocrit 32.9 % (39.0-51.0) Mean Corpuscular Volume 88.7 FL (80.0-100.0) Mean Corpuscular Hemoglobin 31.5 PG (27.0-34.0) Mean Corpuscular Hemoglobin 35.5 % Concent (32.0-36.0) Red Cell Distribution Width 13.2 % (11.6-17.2) Platelet Count 124 TH/MM3 (150-450) Mean Platelet Volume 8.6 FL (7.0-11.0) Sodium Level 140 MEQ/L (136-145) Potassium Level 4.2 MEQ/L (3.5-5.1) Chloride Level 108 MEQ/L (98-107) Carbon Dioxide Level 24.2 MEQ/L (21.0-32.0) Anion Gap 8 MEQ/L (5-15) Blood Urea Nitrogen 23 MG/DL (7-18) Creatinine 0.71 MG/DL (0.60-1.30) Estimat Glomerular Filtration 111 ML/MIN Rate (>89) Random Glucose 127 MG/DL (74-106) Calcium Level 8.3 MG/DL (8.5-10.1) Magnesium Level 2.2 MG/DL (1.5-2.5) Result Diagram: 07/25/1644907/25/16449 Telemetry: NSR (1) Coronary artery disease (2) S/P CABG x 3 Plan: on statin ASA, BB , statin ambulate aggressive pulm toileting nebs, ezpap acapella transfer to stepdown unit (3) Hypertension Plan: controlled (4) GERD (gastroesophageal reflux disease) Plan: PPI (5) Type 2 diabetes mellitus Plan: on insulin sliding scale, Novolog 70/30 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
--- NOTE | 2016-07-25 13:22 | HHI.FF ---
Face to Face Verification Diagnosis: (1) Coronary artery disease (2) GERD (gastroesophageal reflux disease) (3) Hypertension (4) Unstable angina (5) Type 2 diabetes mellitus (6) S/P CABG x 3 Home Health Nursing Order: Signs/symptoms of disease process Diabetic education Wound care and dressing changes Instructions: Heart and Vascular Surgery patients *Special attention to sternal dressing Mandatory frequency Assess and evaluation, 4 days in a row The next week 3X week 2 times a week for 4 weeks 1 time a week for 5 weeks Schedule Heart and Vascular patients for full 60 day certification period Initial visit Review Open Heart Surgery Discharge Instructions (Sternal precautions, Activity, Elastic hose, Incision care, Driving, Incentive spirometry, Smoking, [place], Work and other) Need Betadine to paint incision Medication reconciliation Importance of follow up care/ check on appointments Make calendar record temperature daily When to call [facility] nurse, review instructions, phone list Incentive Spirometry, demonstration Visit 1- Begin discharge instruction for patient family and/ or caregiver using teach back method- Signs and symptoms of infection Disease characteristics Medicines and side effects Foods and nutrition/ appetite Infection control/ hand washing/ hygiene Visit 2- Continue teaching Discharge instructions- include additional information on smoking cessation , sternal dressing (sternal vac) Visit 3- Continue teaching- Cough and deep breathing, incision monitoring. Choose my plate Visit 4- Continue teaching- Discuss limitations Discuss how they are feeling Discuss progress toward goals Remaining visits Incentive spirometry Q1 hr x 10, while awake, also use acapella device hourly whole awake Sternal Breast Bone Precautions: NO pushing or pulling, ( pt must use sternal pillow to support chest with all activities and with coughing ( takes up to 3 months breast bone to heal ) All females to wear sternal bra , launder as needed Daily incision care: ok to shower daily, no tub bath. Wash all incisions with liquid dial soap, clean wash cloth to each site, rinse and pat dry. Observe for any signs of infection, such as drainage which is dark yellow, ortiz, green or foul smelling. Immediately report to the surgeon any drainage from the chest incision, or legs, and for any abnormal drainage from the chest tube sites. Notify surgeon if any temp >101.5 degrees F. When specialty dressing removed/ or if you do not have one, continue to shower daily as above, then rinse and pat incision dry and paint with betadine daily x 5 days. Allow steri strips to fall off if you have any. Avoid lotions, creams, salves, oils, etc. for the first month Please see attached forms for additional instructions regarding post Open Heart specialty wound vacuum dressings. EMILIANA or Prevena , Dressing to be removed by Nursing staff on 07/31/[address] Upton patients , please obtain CBC, BMP, PA & Lat CXR in 2 weeks, results to Dr. Upton ( prescription will be given) ( ) (Tele: [phone]) , Valve replacement pts will need 2decho in 2 weeks with results to Dr. Upton . Please obtain 2 d echo at your applied research director office if possible F/U appointment: as per DC instructions: PCP in 2 weeks, CV surgeon 2 weeks, Civil Engineering Manager 3-4 weeks For any questions regarding incisions/ dressing / meds / post op care or above Symptoms, Friday 8am-5pm Heart & Vascular Surgery Office ( Dr. Sanz & Dr. Upton), After Hours / Nights (5pm -8am) Weekends and Holidays Please call [facility] ([facility]) Charge Nurse I have seen patient Frederick Nugent on 07/25/16. My clinical findings support the need for the requested home health care services because: Deconditioned w/ increased weakness I certify that my clinical findings support that this patient is homebound because: Post-op weakness Freda Betancourt Jul 25, 2016 13:21
[2016-07-25] MEDS: INSULIN ASPART SUPPLEMENTAL SCALE SQ SCH ×3 (14:17→21:36)
[2016-07-25] MEDS: SENNOSIDES 8.6 MG TAB PO SCH (19:37)
[2016-07-25] MEDS: ATORVASTATIN 40 MG TAB PO SCH (19:37)
--- NOTE | 2016-07-25 23:40 | EKG ---
Date Performed: 07/25/2016 Time Performed: 04:42:50 PTAGE: 66 years EKG: Sinus rhythm Leftward axis Borderline ECG PREVIOUS TRACING : 11/23/2015 00.48 Compared to prior tracing no significant change DOCTOR: Zan Hubbard Interpretating Date/Time 07/25/2016 23:40:27
[2016-07-26] VITALS (29 sets, daily range): BP systolic 108–141; BP diastolic 59–69; PULSE 78–103; RESP 16–20; TEMP 98.2–100.7; O2SAT 91–95
[2016-07-26] MEDS: ceFAZolin 2 GM PREMIX 50 ML IV SCH (00:57)
[2016-07-26] MEDS: ACETAMINOPHEN/HYDROcodone 325 MG/5 MG TAB PO PRN ×5 (01:34→19:57)
[2016-07-26] MEDS: INSULIN ASPART SUPPLEMENTAL SCALE SQ SCH ×5 (01:35→22:26)
[2016-07-26] MEDS: KETOROLAC TROMETHAMINE 30 MG/ML (IVP) VIAL IV PUSH PRN (03:01)
[2016-07-26 04:58] LABS: AUTOMATED NEUTROPHIL # 7.2 TH/MM3 (1.8-7.7); BASOPHIL % 0.3 % (0.0-2.0); EOSINOPHIL % 0.5 % (0.0-4.0); HEMATOCRIT 29.4 % (39.0-51.0); HEMO FLAGS DIFF FINAL; LYMPH % 11.1 % (9.0-44.0); MEAN CELL VOLUME 89.5 FL (80.0-100.0); MEAN CORPUSCULAR HEMOGLOBIN 31.6 PG (27.0-34.0); MEAN CORPUSCULAR HGB CONC 35.3 % (32.0-36.0); MONO % 10.1 % (0.0-8.0); PLATELET COUNT 118 TH/MM3 (150-450); RED BLOOD COUNT 3.28 MIL/MM3 (4.50-5.90); RED CELL DISTRIBUTION WIDTH 13.2 % (11.6-17.2); WHITE BLOOD COUNT 9.3 TH/MM3 (4.0-11.0)
[2016-07-26 05:18] LABS: BICARBONATE 26.8 MEQ/L (21.0-32.0); MAGNESIUM 2.1 MG/DL (1.5-2.5); POTASSIUM 3.9 MEQ/L (3.5-5.1)
[2016-07-26] MEDS: PANTOPRAZOLE SOD 40 MG DELAYED RELEASE TAB PO SCH (05:34)
[2016-07-26] MEDS: AMIODARONE 200 MG TAB PO SCH ×3 (05:35→22:23)
[2016-07-26] MEDS: RESP: ALBUTEROL 2.5 MG/IPRATROPIUM 0.5 MG NEB (SCH) NEB ×3 (07:34→20:54)
[2016-07-26] MEDS ORDERED: POTASSIUM CHLORIDE 20 MEQ CONTROLLED RELEASE TAB PO ONE (08:30)
[2016-07-26] MEDS: INSULIN HUMAN NPH/R 70/30 1,000 UNITS/10 ML VIAL SQ SCH ×2 (09:14→22:28)
--- NOTE | 2016-07-26 09:39 | PD.CAR.PN ---
CVT Progress Note CVT: POD #: 2 Subjective/Hospital Course: 66/ male transfer from [facility] ED 07/18 c/o of chest pain , no prior cardiac hx , underwent cardiac cath by Dr Christian Hubbard multi vessel disease / 80% mid LAD, Left Circ 70%, PDA 90% EF 50% risk factors: age, DM, HTN, PMH: DM insulin dependent , HTN, 100% disabled [facility] [place] ( [place] ) prior heavy tobacco abuse 07/23 await surgery scheduled in am , had slight chest pain this afternoon, relieved with nitro on room air , insulin adjusted for elevated BGM's 07/24 surgery: CABG x 3, BOWEN to LAD - good, SVG to OM2 - good, SVG to PLB - good 07/24/1607/25 up in chair, on nasal cannula feels fair , weaning off insulin gtt start low dose BB ok to transfer to stepdown unit remains in NSR 07/26 chest tube removed without difficulty BB increased and lisinopril added for BP gentle diuresis ambulate Objective: GENERAL: SKIN: Warm and dry./ prevena dressing to chest / incision intact to left leg HEAD: Normocephalic. EYES: No scleral icterus. No injection or drainage. NECK: Supple, trachea midline. No JVD or lymphadenopathy. CARDIOVASCULAR: Regular rate and rhythm without murmurs, gallops, or rubs. RESPIRATORY: diminished in bases Breath sounds equal bilaterally. No accessory muscle use. GASTROINTESTINAL: Abdomen soft, non-tender, nondistended. MUSCULOSKELETAL: No cyanosis, or edema. BACK: Nontender without obvious deformity. No CVA tenderness. Vital Signs Date Time Temp Pulse Resp B/P Pulse Ox O2 Delivery O2 Flow Rate FiO2 07/26/16 07:35 94 Room Air 07/26/16 07:35 98 07/26/16 07:35 99.1 98 20 137/66 94 07/26/16 07:30 94 07/26/16 06:00 94 07/26/16 05:00 88 07/26/16 04:00 91 07/26/16 03:00 91 07/26/16 03:00 96 Nasal Cannula 2.00 07/26/16 03:00 98.5 93 19 141/65 93 07/26/16 02:00 90 07/26/16 01:00 88 07/26/16 00:00 87 07/25/16 23:00 98.5 95 28 149/67 97 07/25/16 23:00 97 Room Air 07/25/16 23:00 91 07/25/16 22:00 96 07/25/16 21:00 101 07/25/16 20:37 95 Nasal Cannula 2.00 07/25/16 20:00 103 07/25/16 19:30 103 07/25/16 19:30 98.1 101 27 159/79 95 07/25/16 19:00 95 Room Air 07/25/16 16:56 18 07/25/16 15:11 91 07/25/16 15:10 91 07/25/16 15:09 98.9 91 17 127/77 93 07/25/16 11:03 99 07/25/16 11:01 98.3 99 19 136/69 99 Arterial Line Labs: Laboratory Tests Test 07/26/16 04:28 White Blood Count 9.3 TH/MM3 (4.0-11.0) Red Blood Count 3.28 MIL/MM3 (4.50-5.90) Hemoglobin 10.3 GM/DL (13.0-17.0) Hematocrit 29.4 % (39.0-51.0) Mean Corpuscular Volume 89.5 FL (80.0-100.0) Mean Corpuscular Hemoglobin 31.6 PG (27.0-34.0) Mean Corpuscular Hemoglobin 35.3 % Concent (32.0-36.0) Red Cell Distribution Width 13.2 % (11.6-17.2) Platelet Count 118 TH/MM3 (150-450) Mean Platelet Volume 8.5 FL (7.0-11.0) Neutrophils (%) (Auto) 78.0 % (16.0-70.0) Lymphocytes (%) (Auto) 11.1 % (9.0-44.0) Monocytes (%) (Auto) 10.1 % (0.0-8.0) Eosinophils (%) (Auto) 0.5 % (0.0-4.0) Basophils (%) (Auto) 0.3 % (0.0-2.0) Neutrophils # (Auto) 7.2 TH/MM3 (1.8-7.7) Lymphocytes # (Auto) 1.0 TH/MM3 (1.0-4.8) Monocytes # (Auto) 0.9 TH/MM3 (0-0.9) Eosinophils # (Auto) 0.0 TH/MM3 (0-0.4) Basophils # (Auto) 0.0 TH/MM3 (0-0.2) CBC Comment DIFF FINAL Differential Comment Sodium Level 140 MEQ/L (136-145) Potassium Level 3.9 MEQ/L (3.5-5.1) Chloride Level 106 MEQ/L (98-107) Carbon Dioxide Level 26.8 MEQ/L (21.0-32.0) Anion Gap 7 MEQ/L (5-15) Blood Urea Nitrogen 23 MG/DL (7-18) Creatinine 0.86 MG/DL (0.60-1.30) Estimat Glomerular Filtration 89 ML/MIN (>89) Rate Random Glucose 101 MG/DL (74-106) Calcium Level 8.3 MG/DL (8.5-10.1) Magnesium Level 2.1 MG/DL (1.5-2.5) Result Diagram: 07/26/16 0428 07/26/16 0428 (1) Coronary artery disease (2) S/P CABG x 3 Plan: on statin ASA, increase BB , statin ambulate aggressive pulm toileting nebs, ezpap acapella (3) Hypertension Plan: increase BB, add lisinopril (4) GERD (gastroesophageal reflux disease) Plan: PPI (5) Type 2 diabetes mellitus Plan: on insulin sliding scale, 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
[2016-07-26] MEDS ORDERED: POTASSIUM CHLORIDE 10 MEQ CONTROLLED RELEASE TAB PO ONE (09:45)
[2016-07-26] MEDS ORDERED: FUROSEMIDE 20 MG/2 ML VIAL IV PUSH ONE (09:45)
[2016-07-26] MEDS: MAGNESIUM HYDROXIDE SUSP 30 ML CUP PO SCH (10:19)
[2016-07-26] MEDS: METOPROLOL TARTRATE 25 MG TAB PO SCH ×2 (10:20→22:23)
[2016-07-26] MEDS: LISINOPRIL 10 MG TAB PO SCH (10:20)
[2016-07-26] MEDS: ASPIRIN EC 81 MG TABEC PO SCH (10:20)
[2016-07-26] MEDS: DOCUSATE SODIUM 100 MG CAP PO SCH ×2 (10:20→22:24)
[2016-07-26] MEDS: MULTIVITAMINS/MINERALS THERAPEUTIC TAB PO SCH (10:20)
[2016-07-26] MEDS: SODIUM CHLORIDE 0.9% FLUSH 5 ML FLUSH IV FLUSH SCH ×2 (10:21→22:25)
[2016-07-26] MEDS: POLYETHYLENE GLYCOL 17 GM PKG PO SCH (10:21)
[2016-07-26] MEDS: GABAPENTIN 100 MG CAP PO SCH ×3 (10:21→18:05)
[2016-07-26] MEDS ORDERED: BISACODYL 10 MG SUPP RECTAL ONE (15:30)
[2016-07-26] MEDS ORDERED: AMIO200T PO (15:36)
[2016-07-26] MEDS ORDERED: LISI10TA3 PO (15:36)
[2016-07-26] MEDS ORDERED: THERM PO (15:36)
[2016-07-26] MEDS ORDERED: DOCU1CAP39 PO (15:36)
[2016-07-26] MEDS ORDERED: METO25TA3 PO (15:36)
--- NOTE | 2016-07-26 15:43 | HHI.DS ---
Discharge Summary Admission Date Jul 20, 2016 at 13:50 Discharge Date: Jul 28, 2016 Admitting Diagnosis chest pain / CAD (1) Coronary artery disease Diagnosis: Principal (2) GERD (gastroesophageal reflux disease) Diagnosis: Principal (3) Hypertension Diagnosis: Principal (4) Type 2 diabetes mellitus Diagnosis: Principal (5) S/P CABG x 3 Diagnosis: Secondary Procedures CABG x 3 07/24 BOWEN to LAD - good SVG to OM2 - good SVG to PLB - good Brief History Subjective/Hospital Course: 66/ male transfer from [facility] ED 07/18 c/o of chest pain , no prior cardiac hx , underwent cardiac cath by Dr Christian Hubbard multi vessel disease / 80% mid LAD, Left Circ 70%, PDA 90% EF 50% risk factors: age, DM, HTN, PMH: DM insulin dependent , HTN, 100% disabled [facility] [place] ( [place] ) prior heavy tobacco abuse CBC/BMP: 07/26/16 0428 07/26/16 0428 Significant Findings Laboratory Tests Test 07/25/16 07/26/16 04:50 04:28 White Blood Count 11.8 TH/MM3 (4.0-11.0) Red Blood Count 3.71 MIL/MM3 3.28 MIL/MM3 (4.50-5.90) (4.50-5.90) Hemoglobin 11.7 GM/DL 10.3 GM/DL (13.0-17.0) (13.0-17.0) Hematocrit 32.9 % 29.4 % (39.0-51.0) (39.0-51.0) Platelet Count 124 TH/MM3 118 TH/MM3 (150-450) (150-450) Chloride Level 108 MEQ/L (98-107) Blood Urea Nitrogen 23 MG/DL (7-18) 23 MG/DL (7-18) Random Glucose 127 MG/DL (74-106) Calcium Level 8.3 MG/DL 8.3 MG/DL (8.5-10.1) (8.5-10.1) Neutrophils (%) (Auto) 78.0 % (16.0-70.0) Monocytes (%) (Auto) 10.1 % (0.0-8.0) Imaging Last Impressions Chest X-Ray 07/25/16 0500 Signed Impressions: Service Date/Time: July 04:28 - CONCLUSION: 1. Central and left chest tube present without pneumothorax. Cardiomegaly. Mild subsegmental air space disease at the bases. Interval extubation. Jose Daniel Sarmiento MD Lower Extremity Ultrasound 07/21/16 0000 Signed Impressions: Service Date/Time: Thursday, July 21, 2016 07:19 - CONCLUSION: Normal. No DVT of either lower extremity. Michael Luque MD Carotid Artery Ultrasound 07/21/16 0000 Signed Impressions: Service Date/Time: Thursday, July 21, 2016 08:10 - CONCLUSION: Mild atherosclerotic plaque of both carotid bifurcations. No hemodynamically significant narrowing. Michael Luque MD PE at Discharge GENERAL: SKIN: Warm and dry./ prevena dressing to chest , leg incision intact HEAD: Normocephalic. EYES: No scleral icterus. No injection or drainage. NECK: Supple, trachea midline. No JVD or lymphadenopathy. CARDIOVASCULAR: Regular rate and rhythm without murmurs, gallops, or rubs. RESPIRATORY: Breath sounds equal bilaterally. No accessory muscle use. chest tube removed GASTROINTESTINAL: Abdomen soft, non-tender, nondistended. MUSCULOSKELETAL: No cyanosis, or edema. BACK: Nontender without obvious deformity. No CVA tenderness. Hospital Course 07/23 await surgery scheduled in am , had slight chest pain this afternoon, relieved with nitro on room air , insulin adjusted for elevated BGM's 07/24 surgery: CABG x 3, BOWEN to LAD - good, SVG to OM2 - good, SVG to PLB - good 07/24/16 3/ up in chair, on nasal cannula feels fair , weaning off insulin gtt start low dose BB ok to transfer to stepdown unit remains in NSR 3/ chest tube removed without difficulty BB increased and lisinopril added for BP gentle diuresis ambulate Pt Condition on Discharge: Good Discharge Disposition: Disch w/ Home Health Serv Discharge Instructions DIET: Follow Instructions for: Diabetic Diet Activities you can perform: Full Weight Bearing, Shower Only-No Bath Activities to avoid: Strenuous Activity, Driving Additional Activity Instructio: no lifting >8lbs or gallon of milk New Orders: BASIC METABOLIC PROF - 2 Weeks CBC NO DIFF - 2 Weeks X-RAY CHEST PA & LAT - 2 Weeks New Medications: Amiodarone (Amiodarone) 200 Mg Tab 200 MG PO BID heart rhythm #28 Ref 0 TAB Docusate Sodium (Dok) 100 Mg Cap 100 MG PO BID Constipation #60 Ref 0 CAP Lisinopril (Lisinopril) 10 Mg Tab 10 MG PO DAILY Blood Pressure Management #30 Ref 2 TAB Metoprolol Tartrate (Metoprolol Tartrate) 25 Mg Tab 25 MG PO BID Blood Pressure Management #60 Ref 2 TAB Multiple Vitamins W/ Minerals (Thera M Plus) 1 Tab 1 TAB PO DAILY multi vitamin #30 TAB Continued Medications: Aspirin (Aspirin) 81 Mg Tabdr 81 MG PO DAILY TAB Cilostazol (Cilostazol) 100 Mg Tab 100 MG PO BID INTERMITTENT CLAUDICATION Ref 0 TAB Gabapentin (Gabapentin) 300 Mg Cap 300 MG PO QID #90 Ref 0 CAP Insulin Human Isophane-Regular 70-30 Inj (Novolin 70-30 Inj) 1,000 Unit/10 Ml Vial 40 UNITS SQ BID Blood Sugar Management Ref 0 ML Omeprazole (Omeprazole) 20 Mg Tab 20 MG PO BID #30 Ref 0 TAB Sertraline (Sertraline) 100 Mg Tab 100 MG PO BID #30 Ref 0 TAB Simvastatin (Simvastatin) 80 Mg Tab 80 MG PO DAILY Cholesterol Management #30 Ref 0 TAB Tramadol (Tramadol) 50 Mg Tab 50 MG PO TID PRN PAIN Ref 0 TAB Zolpidem (Zolpidem) 10 Mg Tab 10 MG PO DAILY PRN INSOMNIA Ref 0 TAB Discontinued Medications: Lisinopril (Lisinopril) 20 Mg Tab 20 MG PO DAILY #30 Ref 0 TAB Meloxicam (Meloxicam) 7.5 Mg Tab 7.5 MG PO DAILY PRN PAIN Ref 0 TAB Metoprolol Succinate ER 24 HR (Metoprolol Succinate ER 24 HR) 25 Mg Tab 25 MG PO BID #30 Ref 0 TAB Freda Betancourt Jul 26, 2016 15:43
[2016-07-26] MEDS ORDERED: MISC-163 (15:59)
[2016-07-26] MEDS ORDERED: GETGO ROLLING W1 MI1 (16:00)
--- NOTE | 2016-07-26 16:53 | HHI.DS ---
Discharge Summary Admission Date Jul 20, 2016 at 13:50 Admitting Diagnosis (1) Coronary artery disease Diagnosis: Principal (2) GERD (gastroesophageal reflux disease) Diagnosis: Principal (3) Hypertension Diagnosis: Principal (4) Type 2 diabetes mellitus Diagnosis: Principal (5) S/P CABG x 3 Diagnosis: Secondary Procedures CABG x 3 07/24 BOWEN to LAD - good SVG to OM2 - good SVG to PLB - good Brief History Subjective/Hospital Course: 66/ male transfer from [facility] ED 07/18 c/o of chest pain , no prior cardiac hx , underwent cardiac cath by Dr Christian Hubbard multi vessel disease / 80% mid LAD, Left Circ 70%, PDA 90% EF 50% risk factors: age, DM, HTN, PMH: DM insulin dependent , HTN, 100% disabled [place] ( agent [place] ) prior heavy tobacco abuse CBC/BMP: 07/26/16 0428 07/26/16 0428 Significant Findings Laboratory Tests Test 07/25/16 07/26/16 04:50 04:28 White Blood Count 11.8 TH/MM3 (4.0-11.0) Red Blood Count 3.71 MIL/MM3 3.28 MIL/MM3 (4.50-5.90) (4.50-5.90) Hemoglobin 11.7 GM/DL 10.3 GM/DL (13.0-17.0) (13.0-17.0) Hematocrit 32.9 % 29.4 % (39.0-51.0) (39.0-51.0) Platelet Count 124 TH/MM3 118 TH/MM3 (150-450) (150-450) Chloride Level 108 MEQ/L (98-107) Blood Urea Nitrogen 23 MG/DL (7-18) 23 MG/DL (7-18) Random Glucose 127 MG/DL (74-106) Calcium Level 8.3 MG/DL 8.3 MG/DL (8.5-10.1) (8.5-10.1) Neutrophils (%) (Auto) 78.0 % (16.0-70.0) Monocytes (%) (Auto) 10.1 % (0.0-8.0) PE at Discharge GENERAL: SKIN: Warm and dry./ prevena dressing to chest , leg incision intact HEAD: Normocephalic. EYES: No scleral icterus. No injection or drainage. NECK: Supple, trachea midline. No JVD or lymphadenopathy. CARDIOVASCULAR: Regular rate and rhythm without murmurs, gallops, or rubs. RESPIRATORY: Breath sounds equal bilaterally. No accessory muscle use. chest tube removed GASTROINTESTINAL: Abdomen soft, non-tender, nondistended. MUSCULOSKELETAL: No cyanosis, or edema. BACK: Nontender without obvious deformity. No CVA tenderness. Pt Condition on Discharge: Good Discharge Disposition: Disch w/ Home Health Serv Discharge Instructions DIET: Follow Instructions for: Diabetic Diet Activities you can perform: Full Weight Bearing, Shower Only-No Bath Activities to avoid: Strenuous Activity, Driving Additional Activity Instructio: no lifting >8lbs or gallon of milk Follow up Referrals: Appointment for Follow Up - 2 Weeks with Cheyenne Upton MD Cardiology - 4 Weeks with Zan Hubbard MD PCP Follow-up - [address] Aleida Pittman call for appointment New Orders: BASIC METABOLIC PROF - 2 Weeks CBC NO DIFF - 2 Weeks X-RAY CHEST PA & LAT - 2 Weeks New Medications: 3-in-1 Bedside Toilet (3-in-1 Bedside Toilet) 1 Mis Mis 1 EA .ROUTE DIRECTED #1 EA Walker Rolling/GetGo (Walker Rolling/GetGo) 1 Mis Mis 1 EA .ROUTE DIRECTED #1 EA Amiodarone (Amiodarone) 200 Mg Tab 200 MG PO BID heart rhythm #28 Ref 0 TAB Docusate Sodium (Dok) 100 Mg Cap 100 MG PO BID Constipation #60 Ref 0 CAP Lisinopril (Lisinopril) 10 Mg Tab 10 MG PO DAILY Blood Pressure Management #30 Ref 2 TAB Metoprolol Tartrate (Metoprolol Tartrate) 25 Mg Tab 25 MG PO BID Blood Pressure Management #60 Ref 2 TAB Multiple Vitamins W/ Minerals (Thera M Plus) 1 Tab 1 TAB PO DAILY multi vitamin #30 TAB Continued Medications: Aspirin (Aspirin) 81 Mg Tabdr 81 MG PO DAILY TAB Cilostazol (Cilostazol) 100 Mg Tab 100 MG PO BID INTERMITTENT CLAUDICATION Ref 0 TAB Gabapentin (Gabapentin) 300 Mg Cap 300 MG PO QID #90 Ref 0 CAP Insulin Human Isophane-Regular 70-30 Inj (Novolin 70-30 Inj) 1,000 Unit/10 Ml Vial 40 UNITS SQ BID Blood Sugar Management Ref 0 ML Omeprazole (Omeprazole) 20 Mg Tab 20 MG PO BID #30 Ref 0 TAB Sertraline (Sertraline) 100 Mg Tab 100 MG PO BID #30 Ref 0 TAB Simvastatin (Simvastatin) 80 Mg Tab 80 MG PO DAILY Cholesterol Management #30 Ref 0 TAB Tramadol (Tramadol) 50 Mg Tab 50 MG PO TID PRN PAIN Ref 0 TAB Zolpidem (Zolpidem) 10 Mg Tab 10 MG PO DAILY PRN INSOMNIA Ref 0 TAB Discontinued Medications: Lisinopril (Lisinopril) 20 Mg Tab 20 MG PO DAILY #30 Ref 0 TAB Meloxicam (Meloxicam) 7.5 Mg Tab 7.5 MG PO DAILY PRN PAIN Ref 0 TAB Metoprolol Succinate ER 24 HR (Metoprolol Succinate ER 24 HR) 25 Mg Tab 25 MG PO BID #30 Ref 0 TAB Freda Betancourt Jul 26, 2016 16:53
[2016-07-26] MEDS: SENNOSIDES 8.6 MG TAB PO SCH (21:00)
[2016-07-26] MEDS: SERTRALINE HCL 100 MG TAB PO SCH ×2 (21:00→22:23)
[2016-07-26] MEDS: ATORVASTATIN 40 MG TAB PO SCH (22:25)
[2016-07-27] VITALS (16 sets, daily range): BP systolic 113–145; BP diastolic 59–77; PULSE 67–93; RESP 15–18; TEMP 98.2–99.7; O2SAT 92–96
[2016-07-27] MEDS: ACETAMINOPHEN/HYDROcodone 325 MG/5 MG TAB PO PRN ×3 (00:26→14:58)
[2016-07-27] MEDS: PANTOPRAZOLE SOD 40 MG DELAYED RELEASE TAB PO SCH (05:47)
[2016-07-27] MEDS: AMIODARONE 200 MG TAB PO SCH ×2 (05:47→14:57)
[2016-07-27] MEDS: INSULIN ASPART SUPPLEMENTAL SCALE SQ SCH ×2 (05:48→11:34)
--- NOTE | 2016-07-27 07:06 | RADRPT ---
EXAM DATE/TIME: 07/27/2016 03:32 [place] COMPARISON: CHEST SINGLE AP, July 25, 2016, 4:28. INDICATIONS : Shortness of breath, possible pulmonary disease. MEDICAL HISTORY : Hypertension. SURGICAL HISTORY : CABG. ENCOUNTER: Subsequent ACUITY: 1 week PAIN SCORE: 0/10 LOCATION: Bilateral chest FINDINGS: There has been interval thoracostomy tube removal and removal right neck central line. Cardiac silhou ette is enlarged. There appears to be mild increase in hazy parenchymal opacity. CONCLUSION: Thoracostomy tube removal without evidence of pneumothorax. Mildly diminished aeration. Michael Mac MD on July 27, 2016 at 7:03 Board Certified Radiologist. This report was verified electronically.
[2016-07-27] MEDS: RESP: ALBUTEROL 2.5 MG/IPRATROPIUM 0.5 MG NEB (SCH) NEB (08:07)
[2016-07-27] MEDS: ASPIRIN EC 81 MG TABEC PO SCH (08:08)
[2016-07-27] MEDS: DOCUSATE SODIUM 100 MG CAP PO SCH (08:08)
[2016-07-27] MEDS: GABAPENTIN 100 MG CAP PO SCH ×2 (08:09→11:34)
[2016-07-27] MEDS: METOPROLOL TARTRATE 25 MG TAB PO SCH (08:09)
[2016-07-27] MEDS: INSULIN HUMAN NPH/R 70/30 1,000 UNITS/10 ML VIAL SQ SCH (08:09)
[2016-07-27] MEDS: POLYETHYLENE GLYCOL 17 GM PKG PO SCH (08:09)
[2016-07-27] MEDS: SERTRALINE HCL 100 MG TAB PO SCH (08:09)
[2016-07-27] MEDS: LISINOPRIL 10 MG TAB PO SCH (08:09)
[2016-07-27] MEDS: MULTIVITAMINS/MINERALS THERAPEUTIC TAB PO SCH (08:09)
[2016-07-27] MEDS: SODIUM CHLORIDE 0.9% FLUSH 5 ML FLUSH IV FLUSH SCH (08:10)
[2016-07-27] MEDS: MAGNESIUM HYDROXIDE SUSP 30 ML CUP PO SCH (08:10)
== END 2016-07-27 15:50 | disposition home health service (06) | DRG 236 ==
LOC: HCPC 07-20 13:50 → HCIS 07-24 06:58 → HCVR 07-24 11:55 → HCPC 07-25 19:30
PROVIDERS: ADMIT Thoracic Surgery (Cardiothoracic Vascular Surgery); ATTEND Thoracic Surgery (Cardiothoracic Vascular Surgery)
PROC: 06BQ4ZZ Excision of Left Saphenous Vein, Percutaneous Endoscopic Approach (ICD-10-PCS; 2016-07-24)
PROC: 5A1221Z Performance of Cardiac Output, Continuous (ICD-10-PCS; 2016-07-24)
PROC: B246ZZ4 Ultrasonography of Right and Left Heart, Transesophageal (ICD-10-PCS; 2016-07-24)
PROC: 02100Z9 Bypass Coronary Artery, One Artery from Left Internal Mammary, Open Approach (ICD-10-PCS; principal; 2016-07-24 07:03)
PROC: 021109W Bypass Coronary Artery, Two Arteries from Aorta with Autologous Venous Tissue, Open Approach (ICD-10-PCS; 2016-07-24 07:03)
DX: I25.110 Atherosclerotic heart disease of native coronary artery with unstable angina pectoris (principal); E11.65 Type 2 diabetes mellitus with hyperglycemia; I10 Essential (primary) hypertension; E78.5 Hyperlipidemia, unspecified; K21.9 Gastro-esophageal reflux disease without esophagitis; G62.9 Polyneuropathy, unspecified; Z79.4 Long term (current) use of insulin; Z87.891 Personal history of nicotine dependence
CPT/HCPCS: 71010; 76937; 80048; 81001; 82948; 83735; 85014; 85025; 85027; 85610; 86850; 86900; 86901; 86920; 87641; 93005; 93318; 93880; 93970; 93998; 94002; 94010; 94150; 94640; 94664; 94667; 94668; C9248; C9399; J0131; J0690; J1644; J1815; J1817; J1885; J1940; J2150; J2250; J2370; J2405; J2720; J2930; J3010; J3370; J3475; J3480; J7040; J7050; J7120; P9047

== ENCOUNTER 2016-07-28 21:54 | Observation (INO) | payer OTHER, MEDICARE ==
[~2016-07-28] VITALS: Ht 182.9 cm; Wt 120.0 kg
[~2016-07-28 21:54] MED LIST changes: +AMIO200T PO; +ASPI1TAB69 PO; +CILO100T PO; -CILO50TA PO; +DOCU1CAP39 PO; +GABA300C5 PO; +GETGO ROLLING W1 MI1; -GLIP5 PO; -LISI-360 PO; +LISI10TA3 PO; +METO25TA3 PO; +MISC-163; -NEUR400C PO; +OMEP20TA PO; -PRIL40CA PO; +SERT-129 PO; -SILD20TA PO; -SIMV20TA PO; +SIMV80TA PO; +THERM PO; +TRAM50TA PO; +ZOLP10TA3 PO
[2016-07-28 22:02] VITALS: BP 113/54; PULSE 71; RESP 14; TEMP 98.2; O2SAT 96
--- NOTE | 2016-07-28 22:11 | PD ---
HPI Chief Complaint: Altered Mental Status Time Seen by Provider: 21:56 Travel History International Travel<30 days: No Contact w/Intl Traveler<30days: No Traveled to known affect area: No History of Present Illness HPI This is a 66-year-old gentleman who status post open heart surgery 4 days ago, who presents via home with altered mental status. According to the paramedics the patient took an Ambien tonight and shortly thereafter started acting confused and altered. EMS was called because he was tugging at his surgical site. The patient is arousable and appropriate but is very lethargic and sleepy. According to EMS his blood sugar initially was 67 and on recheck it was 55. They gave him oral glucose and it still stayed below 60. They did initiate D10, 25 g of dextrose. PFSH Past Medical History Cancer: No Cardiovascular Problems: Yes High Cholesterol: Yes Chemotherapy: No Dementia: Yes Diabetes: Yes Diminished Hearing: No GERD: Yes Genitourinary: Yes (GERD) Hypertension: Yes Neurologic: Yes (Dementia ) Psychiatric: No Reproductive: No Respiratory: No Immunizations Current: No Radiation Therapy: No Past Surgical History Other Surgery: Yes (NECK SURGERY, LEFT LEG SURGERY) Social History Alcohol Use: No Tobacco Use: No Substance Use: No Allergies-Medications (Allergen,Severity, Reaction): Coded Allergies: Metformin (Verified Allergy, Severe, Nausea/Vomiting, 03/01/15) AND SWEATING Reported Meds & Prescriptions Reported Meds & Active Scripts Active Thera M Plus (Multivitamins/Minerals Therapeutic) 1 Tab 1 Tab PO DAILY Metoprolol Tartrate 25 Mg Tab 25 Mg PO BID Lisinopril 10 Mg Tab 10 Mg PO DAILY Dok (Docusate Sodium) 100 Mg Cap 100 Mg PO BID Amiodarone (Amiodarone HCl) 200 Mg Tab 200 Mg PO BID Reported Novolin 70-30 Inj (Insulin Human Isoph/Insulin Regular) 1,000 Unit/10 Ml Vial 40 Units SQ BID Simvastatin 80 Mg Tab 80 Mg PO DAILY Zolpidem (Zolpidem Tartrate) 10 Mg Tab 10 Mg PO DAILY PRN Cilostazol 100 Mg Tab 100 Mg PO BID Tramadol (Tramadol HCl) 50 Mg Tab 50 Mg PO TID PRN Aspirin 81 Mg Tabdr 81 Mg PO DAILY Omeprazole 20 Mg Tab 20 Mg PO BID Sertraline (Sertraline HCl) 100 Mg Tab 100 Mg PO BID Gabapentin 300 Mg Cap 300 Mg PO QID Review of Systems Except as stated in HPI: all other systems reviewed are Neg General / Constitutional: No: Fever, Chills HENT: No: Headaches, Neck Pain Cardiovascular: No: Chest Pain or Discomfort, Palpitations (new new pain) Respiratory: No: Cough, Shortness of Breath Gastrointestinal: No: Nausea, Vomiting Genitourinary: No: Incontinence Musculoskeletal: No: Weakness, Pain Neurologic: Positive: Change in Mentation (after Ambien), Other Physical Exam Narrative GENERAL: Well-developed well-nourished gentleman in no acute respiratory distress. SKIN: Warm and dry. HEAD: Atraumatic. Normocephalic. EYES: No scleral icterus. No injection or drainage. ENT: No nasal bleeding or discharge. Mucous membranes pink and moist. NECK: Trachea midline. No JVD. CARDIOVASCULAR: Regular rate and rhythm. No murmur appreciated. RESPIRATORY: No accessory muscle use. Clear to auscultation. Breath sounds equal bilaterally. Surgical site across his mid sternum has dressing were there is no drainage noted. GASTROINTESTINAL: Abdomen soft, non-tender, nondistended. MUSCULOSKELETAL: No obvious deformities. No clubbing. No cyanosis. No edema. NEUROLOGICAL: Agitated but able to answer questions. No obvious cranial nerve deficits. Motor grossly within normal limits. Normal speech. Data Data Last Documented VS Vital Signs Date Time Temp Pulse Resp B/P Pulse Ox O2 Delivery O2 Flow Rate FiO2 07/28/16 22:28 16 07/28/16 22:28 Room Air 07/28/16 22:02 98.2 71 113/54 96 Orders Electrocardiogram (07/28/16 22:01) Complete Blood Count With Diff (07/28/16 22:01) Comprehensive Metabolic Panel (07/28/16 22:01) Creatine Kinase (Cpk) (07/28/16 22:01) Prothrombin Time / Inr (Pt) (07/28/16 22:01) Act Partial Throm Time (Ptt) (07/28/16 22:01) Troponin I (07/28/16 22:01) Urinalysis - C+S If Indicated (07/28/16 22:01) Chest, Single Ap (07/28/16 22:01) Ct Brain W/O Iv Contrast(Rout) (07/28/16 22:01) Blood Glucose (07/28/16 22:01) Ecg Monitoring (07/28/16 22:01) Iv Access Insert/Monitor (07/28/16 22:01) Oximetry (07/28/16 22:01) Sodium Chloride 0.9% Flush (Ns Flush) (07/28/16 22:15) Drug Screen, Random Urine (07/28/16 22:01) Alcohol (Ethanol) (07/28/16 22:01) Lorazepam Inj (Ativan Inj) (07/28/16 23:30) Piperacil-Tazo 4.5 Gm Premix (Zosyn 4.5 (07/28/16 23:43) Admit Order (Ed Use Only) (07/28/16 23:44) Labs Laboratory Tests Test 07/28/16 07/28/16 22:25 22:45 White Blood Count 7.6 TH/MM3 Red Blood Count 3.02 MIL/MM3 Hemoglobin 9.5 GM/DL Hematocrit 27.0 % Mean Corpuscular Volume 89.4 FL Mean Corpuscular Hemoglobin 31.4 PG Mean Corpuscular Hemoglobin 35.2 % Concent Red Cell Distribution Width 13.0 % Platelet Count 200 TH/MM3 Mean Platelet Volume 8.3 FL Neutrophils (%) (Auto) 75.9 % Lymphocytes (%) (Auto) 11.5 % Monocytes (%) (Auto) 10.0 % Eosinophils (%) (Auto) 2.2 % Basophils (%) (Auto) 0.4 % Neutrophils # (Auto) 5.7 TH/MM3 Lymphocytes # (Auto) 0.9 TH/MM3 Monocytes # (Auto) 0.8 TH/MM3 Eosinophils # (Auto) 0.2 TH/MM3 Basophils # (Auto) 0.0 TH/MM3 CBC Comment DIFF FINAL Differential Comment Prothrombin Time 10.6 SEC Prothromb Time International 1.0 RATIO Ratio Activated Partial 27.6 SEC Thromboplast Time Sodium Level 136 MEQ/L Potassium Level 3.5 MEQ/L Chloride Level 101 MEQ/L Carbon Dioxide Level 25.1 MEQ/L Anion Gap 10 MEQ/L Blood Urea Nitrogen 15 MG/DL Creatinine 0.77 MG/DL Estimat Glomerular Filtration 101 ML/MIN Rate Random Glucose 165 MG/DL Calcium Level 7.5 MG/DL Total Bilirubin 0.4 MG/DL Aspartate Amino Transf 14 U/L (AST/SGOT) Alanine Aminotransferase 17 U/L (ALT/SGPT) Alkaline Phosphatase 38 U/L Total Creatine Kinase 59 U/L Troponin I 0.04 NG/ML Total Protein 5.7 GM/DL Albumin 2.4 GM/DL Ethyl Alcohol Level LESS THAN 3 MG/DL Urine Color LIGHT-YELLOW Urine Turbidity CLEAR Urine pH 6.5 Urine Specific [place] 1.007 Urine Protein NEG mg/dL Urine Glucose (UA) 300 mg/dL Urine Ketones NEG mg/dL Urine Occult Blood NEG Urine Nitrite NEG Urine Bilirubin NEG Urine Urobilinogen LESS THAN 2.0 MG/DL Urine Leukocyte Esterase NEG Urine RBC LESS THAN 1 /hpf Microscopic Urinalysis Comment CATH-CULT NOT IND Urine Opiates Screen POS Urine Barbiturates Screen NEG Urine Amphetamines Screen NEG Urine Benzodiazepines Screen POS Urine Cocaine Screen NEG Urine Cannabinoids Screen NEG MDM Medical Decision Making Medical Screen Exam Complete: Yes Emergency Medical Condition: Yes Differential Diagnosis Adverse reaction to medication versus metabolic derangement versus CVA Narrative Course 66 year-old gentleman who status post open heart surgery 4 days ago in [place], who presents today with complaints of altered mental status after taking an Ambien tablet. The patient also had an episode of hypoglycemia. He is given a bag of D10 en route. Patient's CT brain shows no evidence of acute problems. He is noted to be anemic which is consistent with anemia secondary to surgery with a hemoglobin in the 9 range. The rest of his laboratory tests are within normal limits. Chest x-ray does show a left lower infiltrate. Given the 3 findings, I think it is best we admit the patient under observation. We will start him on Zosyn since he is status post cardiac surgery 4 days ago. He is improving mental status arellano but still has some episodes of acting inappropriate. He's been given Ativan, 1 mg I V times one dose. I discussed the case with Dr. Mayers, [facility] hospitalist, who is agreed to place the patient on their service. Diagnosis Primary Impression: adverse reaction to medication Additional Impressions: Hypoglycemia left lower lobe infiltrate Patrick Tolliver MD Jul 28, 2016 22:11
[2016-07-28] MEDS ORDERED: SODIUM CHLORIDE 0.9% FLUSH 5 ML FLUSH IVF PRN (22:15)
[2016-07-28 22:28] VITALS: RESP 16
[2016-07-28 22:34] LABS: AUTOMATED NEUTROPHIL # 5.7 TH/MM3 (1.8-7.7); BASOPHIL % 0.4 % (0.0-2.0); EOSINOPHIL # 0.2 TH/MM3 (0-0.4); EOSINOPHIL % 2.2 % (0.0-4.0); HEMO FLAGS DIFF FINAL; LYMPH % 11.5 % (9.0-44.0); LYMPHOCYTE # 0.9 TH/MM3 (1.0-4.8); MEAN CELL VOLUME 89.4 FL (80.0-100.0); MEAN CORPUSCULAR HEMOGLOBIN 31.4 PG (27.0-34.0); MEAN CORPUSCULAR HGB CONC 35.2 % (32.0-36.0); NEUT % 75.9 % (16.0-70.0); PLATELET COUNT 200 TH/MM3 (150-450); RED BLOOD COUNT 3.02 MIL/MM3 (4.50-5.90); WHITE BLOOD COUNT 7.6 TH/MM3 (4.0-11.0)
[2016-07-28 22:42] LABS: APTT (PATIENT) 27.6 SEC (24.3-30.1); PROTHROMBIN TIME - PATIENT 10.6 SEC (9.8-11.6)
--- NOTE | 2016-07-28 22:47 | RADRPT ---
EXAM DATE/TIME: 07/28/2016 22:21 [facility] COMPARISON: CHEST SINGLE AP, July 27, 2016, 3:32. INDICATIONS : Shortness of breath. MEDICAL HISTORY : Hypertension. SURGICAL HISTORY : CABG. ENCOUNTER: Subsequent ACUITY: 1 week PAIN SCORE: 0/10 LOCATION: Bilateral chest FINDINGS: Cardiomegaly and sternotomy wires. Patchy basilar airspace disease in the left lower lobe. No definit e effusions. CONCLUSION: Left basilar infiltrate. Finesse Felix MD on July 28, 2016 at 22:45 Board Certified Radiologist. This report was verified electronically.
[2016-07-28 23:10] LABS: ALKALINE PHOSPHATASE 38 U/L (45-117); ALT (GPT) 17 U/L (12-78); ANION GAP 10 MEQ/L (5-15); AST (GOT) 14 U/L (15-37); BICARBONATE 25.1 MEQ/L (21.0-32.0); BLOOD UREA NITROGEN 15 MG/DL (7-18); CHLORIDE 101 MEQ/L (98-107); GLOMERULAR FILTRATION RATE 101 ML/MIN (>89); POTASSIUM 3.5 MEQ/L (3.5-5.1); SODIUM (NA) 136 MEQ/L (136-145); TOTAL BILIRUBIN ADULT 0.4 MG/DL (0.2-1.0)
[2016-07-28 23:11] LABS: BLOOD, URINE NEG (NEG); GLUCOSE,URINE 300 mg/dL (NEG); KETONE, URINE NEG (NEG); NITRITE,URINE NEG (NEG); PH, URINE 6.5 (5.0-8.5); URINE COLOR LIGHT-YELLOW (YELLW/STRAW)
[2016-07-28 23:11] LABS: CREATINE KINASE 59 U/L (39-308)
[2016-07-28 23:13] LABS: AMPHETAMINE, URINE NEG (NEG); BARBITURATES, URINE NEG (NEG); COCAINE, URINE NEG (NEG)
--- NOTE | 2016-07-28 23:17 | RADRPT ---
EXAM DATE/TIME: 07/28/2016 22:56 [facility] COMPARISON: No previous studies available for comparison. INDICATIONS : Altered mental status. RADIATION DOSE: 39.71 CTDIvol (mGy) MEDICAL HISTORY : Dementia. Hypertension. Diabetes mellitus type 2.GERD SURGICAL HISTORY : neck surgery ENCOUNTER: Initial ACUITY: 1 day PAIN SCALE: Non-responsive LOCATION: cranial TECHNIQUE: Multiple contiguous axial images were obtained of the head. Using automated exposure control and adj ustment of the mA and/or kV according to patient size, radiation dose was kept as low as reasonably a chievable to obtain optimal diagnostic quality images. FINDINGS: CEREBRUM: The ventricles are normal for age. No evidence of midline shift, mass lesion, hemorrhage or acute in farction. No extra-axial fluid collections are seen. POSTERIOR FOSSA: The cerebellum and brainstem are intact. The 4th ventricle is midline. The cerebellopontine angle i s unremarkable. EXTRACRANIAL: The visualized portion of the orbits is intact. SKULL: The calvaria is intact. No evidence of skull fracture. CONCLUSION: Negative exam. No acute intracranial process to explain current clinical symptoms. Robbie Orourke MD on July 28, 2016 at 23:14 Board Certified Radiologist. This report was verified electronically.
[2016-07-28 23:27] LABS: COMMENT (UR) CATH-CULT NOT IND; CULTURE IF INDICATED CATH CULTURE NOT IND
[2016-07-28] MEDS ORDERED: LORazepam 2 MG/ML VIAL IV PUSH ONE (23:30)
[2016-07-28] MEDS ORDERED: PIPERACIL-TAZO 4.5 GM PREMIX 100 ML IV STA (23:43)
--- NOTE | 2016-07-28 23:48 | HHI.HP ---
[facility] Service [facility] Primary Care Physician [facility] Admission Diagnosis adverse reaction to ambien, hypoglycemia, left lower lobe infiltrate Diagnoses: (1) Encephalopathy Diagnosis: Principal (2) Medication reaction Diagnosis: Principal (3) PNA (pneumonia) Diagnosis: Principal (4) Hypoglycemia Diagnosis: Principal (5) Hypocalcemia Diagnosis: Principal (6) S/P CABG x 3 Diagnosis: Principal (7) DM (diabetes mellitus) Diagnosis: Principal Travel History International Travel<30 Days: No Contact w/Intl Traveler <30 Da: No Traveled to Known Affected Are: No History of Present Illness This is a 66-year-old male with a PMH of HTN, DM, CAD s/p CABG x3 on 07/24/[address] Upton who was brought into the ER by EMS secondary to AMS noted by family. Per Son, pt was recently started on Ambien, states he took his first dose this evening and approx 30min later was noted to be lethargic, confused and swatting at things that weren't there. Son states he has had decreased PO intake since discharge but has been doing well overall. Today, Son gave him 30u of Insulin this morning and again at 5pm like usual. Son checked routine BS few hours later and noted BS to be 50. EMS notes BS 67, s/p D50 w/ repeat BS 60. Started on D10 in ER. On arrival, BP 113/54, HR 71, O2 sat 96% on RA, Afebrile. CBC essentially unremarkable. UA negative. Urine Drug Screen positive for Benzo. CXR with left basilar infiltrate. CT Head with no acute findings. S/p Zosyn IV in ER. Mental status improved since arrival to ER per family, however still w/ persistent episodes of confusion. Review of Systems ROS: Unable to obtain secondary to altered mental status. Past Family Social History Past Medical History PMH: HTN, DM, CAD s/p CABG x3 on 07/24/[address] Upton Past Surgical History PAST SURGICAL HISTORY: CABG x3 on 07/24/[address] Upton Allergies: Coded Allergies: Metformin (Verified Allergy, Severe, Nausea/Vomiting, 03/01/15) AND SWEATING Family History PAST FAMILY HISTORY: Reviewed. No h/o DM or CAD Social History PAST SOCIAL HISTORY: Negative for alcohol, tobacco or drugs. Physical Exam Vital Signs Vital Signs Date Time Temp Pulse Resp B/P Pulse Ox O2 Delivery O2 Flow Rate FiO2 07/28/16 22:28 16 07/28/16 22:28 Room Air 07/28/16 22:02 98.2 71 14 113/54 96 Physical Exam PE: GENERAL: Middle-aged white male in no acute distress, confused, reaching out for objects. Family at bedside. HEENT: PERRLA, EOMI. No scleral icterus or conjunctival pallor. No lid lag or facial droop. CARDIOVASCULAR: Regular rate and rhythm. No obvious murmurs to auscultation. No chest tenderness to palpation. Sternotomy with dressing, no infection noted. RESPIRATORY: No obvious rhonchi or wheezing. Clear to auscultation. Breath sounds equal bilaterally. GASTROINTESTINAL: Abdomen soft, non-tender, nondistended. BS normal. MUSCULOSKELETAL: Extremities without clubbing, cyanosis, or edema. No obvious deformities. NEUROLOGICAL: Awake, alert, confused. No focal neurologic deficits. Moving both upper and lower extremities spontaneously. Laboratory Laboratory Tests Test 07/28/16 07/28/16 22:25 22:45 White Blood Count 7.6 Red Blood Count 3.02 Hemoglobin 9.5 Hematocrit 27.0 Mean Corpuscular Volume 89.4 Mean Corpuscular Hemoglobin 31.4 Mean Corpuscular Hemoglobin 35.2 Concent Red Cell Distribution Width 13.0 Platelet Count 200 Mean Platelet Volume 8.3 Neutrophils (%) (Auto) 75.9 Lymphocytes (%) (Auto) 11.5 Monocytes (%) (Auto) 10.0 Eosinophils (%) (Auto) 2.2 Basophils (%) (Auto) 0.4 Neutrophils # (Auto) 5.7 Lymphocytes # (Auto) 0.9 Monocytes # (Auto) 0.8 Eosinophils # (Auto) 0.2 Basophils # (Auto) 0.0 CBC Comment DIFF FINAL Differential Comment Prothrombin Time 10.6 Prothromb Time International 1.0 Ratio Activated Partial 27.6 Thromboplast Time Sodium Level 136 Potassium Level 3.5 Chloride Level 101 Carbon Dioxide Level 25.1 Anion Gap 10 Blood Urea Nitrogen 15 Creatinine 0.77 Estimat Glomerular Filtration 101 Rate Random Glucose 165 Calcium Level 7.5 Total Bilirubin 0.4 Aspartate Amino Transf 14 (AST/SGOT) Alanine Aminotransferase 17 (ALT/SGPT) Alkaline Phosphatase 38 Total Creatine Kinase 59 Troponin I 0.04 Total Protein 5.7 Albumin 2.4 Ethyl Alcohol Level LESS THAN 3 Urine Color LIGHT-YELLOW Urine Turbidity CLEAR Urine pH 6.5 Urine Specific [place] 1.007 Urine Protein NEG Urine Glucose (UA) 300 Urine Ketones NEG Urine Occult Blood NEG Urine Nitrite NEG Urine Bilirubin NEG Urine Urobilinogen LESS THAN 2.0 Urine Leukocyte Esterase NEG Urine RBC LESS THAN 1 Microscopic Urinalysis Comment CATH-CULT NOT IND Urine Opiates Screen POS Urine Barbiturates Screen NEG Urine Amphetamines Screen NEG Urine Benzodiazepines Screen POS Urine Cocaine Screen NEG Urine Cannabinoids Screen NEG Result Diagram: 07/28/16222407/28/162224 Assessment and Plan Problem List: (1) Encephalopathy ICD Code: G93.40 Status: Acute (2) Medication reaction ICD Code: T88.7XXA Status: Acute (3) PNA (pneumonia) ICD Code: J18.9 Status: Acute (4) Hypocalcemia ICD Code: E83.51 Status: Acute (5) Hypoglycemia ICD Code: E16.2 Status: Acute (6) S/P CABG x 3 ICD Code: Z95.1 Status: Acute (7) DM (diabetes mellitus) ICD Code: E11.9 Status: Acute Assessment and Plan A/P: 1. Encephalopathy: Likely multifactorial-secondary to Ambien, acute PNA and transient hypoglycemia. CT Head w/ no acute findings, images reviewed by me. Mental status mildly improved since arrival per family, however persistent episodes of transient confusion. 2. Medication Reaction: s/p Ambien this evening for first time, shortly afterwards noted by family to be lethargic, confused. Mental status slightly improved as above. Will continue to monitor. D/c Ambien. 3. PNA: CXR w/ LLL infiltrate, images reviewed by me. S/p Zosyn IV in ER, will continue w/ Zosyn, add IV Vanc for broad spectrum coverage in light of recent hospitalization/surgery. DuoNeb prn. 4. Hypocalcemia: Ca 7.5, check Corrected Ca, replace as needed. 5. Hypoglycemia: BS 50 per Son, BS 58 by EMS s/p D50 w/ repeat BS 55, started on D10 in ER. Will monitor Accu-Cheks, d/c D10 once stabilized. Hold Insulin. Check Hgb A1c. 6. S/p CABG x3: 07/24/[address] Upton, surgical incision intact, no signs of infection. Follow up w/ Dr. Upton as scheduled. 7. DM: Sliding scale w/ Accu-Cheks once hypoglycemia stabilized, check Hgb A1c. 8. DVT Prophylaxis: SCD/Teds. 9. Social work for d/c planning as needed. 10. Case discussed w/ ER physician at length. Deena Fitzgerald MD Jul 28, 2016 23:48
[2016-07-28] MEDS ORDERED: SODIUM CHLOR 0.9% 1000 ML INJ 1,000 ML IV SCH (23:52)
[2016-07-29] MEDS ORDERED: DEXTROSE 50% IN WATER 50 ML VIAL(D50) IV PUSH PRN
[2016-07-29] MEDS ORDERED: SODIUM CHLORIDE 0.9% FLUSH 5 ML FLUSH FLUSH PRN
[2016-07-29] MEDS ORDERED: BISACODYL 10 MG SUPP PR PRN
[2016-07-29] MEDS ORDERED: ONDANSETRON HCL 4 MG/2 ML VIAL IVP PRN
[2016-07-29] MEDS ORDERED: Vancomycin Consult Pharmacy 1 EA OTHER SCH
[2016-07-29] MEDS ORDERED: ACETAMINOPHEN 325 MG TAB PO PRN
[2016-07-29] MEDS ORDERED: GLUCAGON 1 MG/ML VIAL OTHER PRN
[2016-07-29] MEDS ORDERED: VANCOMYCIN INJ 2,500 MG in SODIUM CHLORID 0.9% 500 ML INJ 500 ML IV SCH (01:00)
[2016-07-29 01:26] VITALS: BP 121/67; PULSE 67; RESP 20; TEMP 98.2; O2SAT 95
[2016-07-29 03:43] VITALS: BP 134/69; PULSE 69; RESP 19; TEMP 98.1; O2SAT 95
[2016-07-29 04:46] LABS: AUTOMATED NEUTROPHIL # 5.2 TH/MM3 (1.8-7.7); BASOPHIL % 0.3 % (0.0-2.0); EOSINOPHIL # 0.2 TH/MM3 (0-0.4); EOSINOPHIL % 2.7 % (0.0-4.0); HEMATOCRIT 27.6 % (39.0-51.0); HEMO FLAGS DIFF FINAL; LYMPH % 15.8 % (9.0-44.0); LYMPHOCYTE # 1.2 TH/MM3 (1.0-4.8); MEAN CELL VOLUME 88.7 FL (80.0-100.0); MEAN CORPUSCULAR HEMOGLOBIN 31.1 PG (27.0-34.0); MONO % 10.4 % (0.0-8.0); NEUT % 70.8 % (16.0-70.0); PLATELET COUNT 203 TH/MM3 (150-450); RED BLOOD COUNT 3.11 MIL/MM3 (4.50-5.90); RED CELL DISTRIBUTION WIDTH 12.6 % (11.6-17.2); WHITE BLOOD COUNT 7.3 TH/MM3 (4.0-11.0)
[2016-07-29 05:05] LABS: ANION GAP 8 MEQ/L (5-15); AST (GOT) 10 U/L (15-37); BLOOD UREA NITROGEN 12 MG/DL (7-18); CHLORIDE 106 MEQ/L (98-107); GLOMERULAR FILTRATION RATE 109 ML/MIN (>89); POTASSIUM 4.1 MEQ/L (3.5-5.1); SODIUM (NA) 141 MEQ/L (136-145)
[2016-07-29 05:10] LABS: ALKALINE PHOSPHATASE 35 U/L (45-117); ALT (GPT) 16 U/L (12-78); CALCIUM-PROTEIN CORRECTED 8.8 MG/DL (8.5-10.1); TOTAL BILIRUBIN ADULT 0.5 MG/DL (0.2-1.0)
[2016-07-29] MEDS: INSULIN ASPART SUPPLEMENTAL SCALE SQ SCH ×3 (05:40→16:25)
[2016-07-29] MEDS ORDERED: PIPERACIL-TAZO 4.5 GM PREMIX 100 ML IV SCH (06:00)
[2016-07-29 07:33] VITALS: BP 130/59; PULSE 78; RESP 18; TEMP 97.9; O2SAT 96
[2016-07-29] MEDS ORDERED: AMIODARONE 200 MG TAB PO SCH (09:00)
[2016-07-29] MEDS ORDERED: SODIUM CHLORIDE 0.9% FLUSH 5 ML FLUSH FLUSH SCH (09:00)
[2016-07-29] MEDS ORDERED: SERTRALINE HCL 100 MG TAB PO SCH (09:00)
[2016-07-29] MEDS ORDERED: METOPROLOL TARTRATE 25 MG TAB PO SCH (09:00)
[2016-07-29 09:04] LABS: HEMOGLOBIN A1a 1.1 %; HEMOGLOBIN Ao 80.5 %; HEMOGLOBIN F 1.2 %; HEMOGLOBIN LA1C 1.6 %; HEMOGLOBIN P3 3.9 %
--- NOTE | 2016-07-29 09:26 | HHI.PR ---
Subjective Remarks Follow-up for encephalopathy. Patient seen with at bedside. Patient's states the patient is essentially back to his baseline mental status. He did take Ambien last night. He states he has taken Ambien before, including in the hospital, and hasn't had a reaction like this before. He states his sleep difficulties are not severe, and he doesn't want to take Ambien anymore. He denies any fevers, chills, cough, shortness of breath since his surgery. He states his blood glucose has been quite labile recently, because [facility] the [facility]. He states his plan is to follow up with an account development manager as soon as possible to give definitive regimen for his blood sugar. He states that previously he has about 2 episodes of hypoglycemia month, that he feels he manages well at home with sweet. He feels like his sugar was yesterday because he didn't enough carbs. He feels like his appetite is been there since his surgery. Objective Vitals Vital Signs Date Time Temp Pulse Resp B/P Pulse Ox O2 Delivery O2 Flow Rate FiO2 07/29/16 07:33 97.9 78 18 130/59 96 07/29/16 03:43 98.1 69 19 134/69 95 07/29/16 01:26 98.2 67 20 121/67 95 07/28/16 22:28 16 07/28/16 22:28 Room Air 07/28/16 22:02 98.2 71 14 113/54 96 I/O 07/28/16 07/28/16 07/28/16 07/29/16 07/29/16 07/29/16 07:00 15:00 23:00 07:00 15:00 23:00 Output Total 400 ml Balance -400 ml Output Urine Total 400 ml Result Diagram: 07/29/16 0419 07/29/16 0419 Imaging Last Impressions Head CT 07/28/162200 Signed Impressions: Service Date/Time: Thursday, July 28, 2016 22:56 - CONCLUSION: Negative exam. No acute intracranial process to explain current clinical symptoms. Robbie Orourke MD Chest X-Ray 07/28/162200 Signed Impressions: Service Date/Time: Thursday, July 28, 2016 22:21 - CONCLUSION: Left basilar infiltrate. Finesse Felix MD Objective Remarks GENERAL: Well-developed well-nourished. In no acute distress. SKIN: Warm and dry. Midline sternotomy incision clean. HEENT: Normocephalic. Pupils equal and round. Mucous membranes pink and moist. CARDIOVASCULAR: Regular rate and rhythm. No murmur appreciated. RESPIRATORY: No accessory muscle use. Clear to auscultation. Breath sounds equal bilaterally. No wheezing, rales, or rhonchi. GASTROINTESTINAL: Abdomen soft, non-tender, nondistended. Bowel sounds x4. MUSCULOSKELETAL: Right medial leg with ecchymosis from vein harvest. No clubbing or cyanosis. No edema. NEUROLOGICAL: Awake and alert. No focal neurological deficits. Moves upper and lower extremities spontaneously. Normal speech. PSYCHIATRIC: Appropriate mood and affect; insight and judgment normal. A/P Problem List: (1) Encephalopathy ICD Code: G93.40 Status: Resolved (2) Medication reaction ICD Code: T88.7XXA Status: Resolved (3) Hypocalcemia ICD Code: E83.51 Status: Resolved (4) Hypoglycemia ICD Code: E16.2 Status: Resolved (5) S/P CABG x 3 ICD Code: Z95.1 Status: Chronic (6) DM (diabetes mellitus) ICD Code: E11.9 Status: Acute Assessment and Plan 66-year-old male with a PMH of HTN, DM, CAD s/p CABG x3 on 07/24/[address] Upton who presented secondary to AMS Acute Encephalopathy: Likely multifactorial-secondary to Ambien and transient hypoglycemia. CT Head w/ no acute findings. at bedside states mental status has continued to improve overnight and is nearly at baseline. Avoid Ambien. Hypoglycemia as below. Medication Reaction: s/p Ambien this evening for first time, shortly afterwards noted by family to be lethargic, confused. Mental status slightly improved as above. Will continue to monitor. D/c Ambien. Pleural effusions: CXR personally reviewed, shows small bilateral pleural effusions; no definite infiltrate. Afebrile with no leukocytosis. No respiratory complaints. Received IV vancomycin and Zosyn, DC. DuoNeb prn. Hypocalcemia: Ca 7.5. Check protein corrected calcium, 8.8. Resolved. DM with Hypoglycemia: BS 50 per Son, BS 58 by EMS. Given D50 and started on D10 in the ED. hemoglobin A1c 10.4, previously 12 per patient. Will monitor Accu-Cheks. Hold home Insulin for now, resume as tolerated. According to CT surgery CAT SWAMPER, home 70/30 was to be decreased from 40u BID to 30u at previous discharge. S/p CABG x3: Discussed with cardiothoracic surgery CAT SWAMPER. Agrees with current management. Continue outpatient follow. Encouraged ambulation. DVT Prophylaxis: SCD/Teds. Discharge Planning 1615 patient reassessed with at bedside. Mental status has returned to baseline. Patient feels well and wants to go home. Upon further questioning regarding diabetes management, it appears the patient had been altering his home insulin regimen yesterday. Apparently he was having a lot of low blood sugars whenever he was on Novolin 70/30 40u daily. Thus, he was decreased to 30 units twice daily on his previous hospitalization. However, since his previous hospitalization on the 30 units, he has been having a lot of blood sugars in the 2-300s. Because of this, yesterday he took 30 units of Novolin 70 /30 3 times total for breakfast, lunch, and dinner. This would explain his persistent hypoglycemia overnight, which at this time has resolved. With hypoglycemia with 40 units twice daily and hyperglycemia with 30 units twice daily, will place the patient on 35 units twice daily until he can see his account development manager. Educated extensively on compliance with insulin administration , diabetic diet, lifestyle modifications, and outpatient follow-up. Discharge patient to home Condition on discharge: Improved Heart healthy diabetic Diet as tolerated Regular activity Rx written: Novolin 70/30 Follow-up with primary care physician and endocrinology Problem Qualifiers (1) Medication reaction: Qualified Code: T88.7XXA - Medication reaction, initial encounter (2) DM (diabetes mellitus): Ken Up Jul 29, 2016 09:26
[2016-07-29] MEDS ORDERED: traMADol HCL 50 MG TAB PO PRN (09:30)
--- NOTE | 2016-07-29 10:15 | EKG ---
Date Performed: 07/28/2016 Time Performed: 22:30:00 PTAGE: 66 years EKG: Sinus rhythm MODERATE INTRAVENTRICULAR CONDUCTION DELAY NONSPECIFIC ST & T-WAVE ABNORMALITY BORDERLINE ECG Compar ed to prior tracing no significant change PREVIOUS TRACING : 07/25/2016 04.42 DOCTOR: Marquez Celis Interpretating Date/Time 07/29/2016 10:13:14
--- NOTE | 2016-07-29 11:10 | PD.CAR.PN ---
CVT Progress Note Subjective/Hospital Course: 66/ male Brief History Subjective/Hospital Course: 66/ male transfer from [facility] ED 07/18 c/o of chest pain , no prior cardiac hx , underwent cardiac cath by Dr Christian Hubbard multi vessel disease / 80% mid LAD, Left Circ 70%, PDA 90% EF 50% risk factors: age, DM, HTN, PMH: DM insulin dependent , HTN, 100% disabled from [place] ( agent orange exposure ) prior heavy tobacco abuse CABG x 3 07/24 BOWEN to LAD - good SVG to OM2 - good SVG to PLB - good note pt had labile BGM, requiring lowering of his scheduled 1novolin 70/30 to 20 unit bid> then 30units bid , monitor blood sugars closely discharged 07/27 he also took ambien last pm, and took pain pill earlier in the day, per his , he became very confused , altered mental status per pt " he took novolin 70/[address] Brain neg, Blood sugar was 67 per EMS, was given D50 he was encouraged to see cafe associate after discharge I spoke with the , she feels he is 85% better mentally , he is to stop taking ambien and monitor his blood sugars more closely prevena dressing was removed , incision is intact and well approximated Objective: GENERAL: SKIN: Warm and dry./ sternal incision intact and well approximated mild erythema right hand 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 EYES: No scleral icterus. No injection or drainage. NECK: Supple, trachea midline. No JVD or lymphadenopathy. CARDIOVASCULAR: Regular rate and rhythm without murmurs, gallops, or rubs. RESPIRATORY: Breath sounds equal bilaterally. No accessory muscle use. GASTROINTESTINAL: Abdomen soft, non-tender, nondistended. MUSCULOSKELETAL: No cyanosis, or edema. BACK: Nontender without obvious deformity. No CVA tenderness. Vital Signs Date Time Temp Pulse Resp B/P Pulse Ox O2 Delivery O2 Flow Rate FiO2 07/29/16 07:33 97.9 78 18 130/59 96 07/29/16 03:43 98.1 69 19 134/69 95 07/29/16 01:26 98.2 67 20 121/67 95 07/28/16 22:28 16 07/28/16 22:28 Room Air 07/28/16 22:02 98.2 71 14 113/54 96 Labs: Laboratory Tests Test 07/29/16 04:19 White Blood Count 7.3 TH/MM3 (4.0-11.0) Red Blood Count 3.11 MIL/MM3 (4.50-5.90) Hemoglobin 9.7 GM/DL (13.0-17.0) Hematocrit 27.6 % (39.0-51.0) Mean Corpuscular Volume 88.7 FL (80.0-100.0) Mean Corpuscular Hemoglobin 31.1 PG (27.0-34.0) Mean Corpuscular Hemoglobin 35.0 % Concent (32.0-36.0) Red Cell Distribution Width 12.6 % (11.6-17.2) Platelet Count 203 TH/MM3 (150-450) Mean Platelet Volume 7.8 FL (7.0-11.0) Neutrophils (%) (Auto) 70.8 % (16.0-70.0) Lymphocytes (%) (Auto) 15.8 % (9.0-44.0) Monocytes (%) (Auto) 10.4 % (0.0-8.0) Eosinophils (%) (Auto) 2.7 % (0.0-4.0) Basophils (%) (Auto) 0.3 % (0.0-2.0) Neutrophils # (Auto) 5.2 TH/MM3 (1.8-7.7) Lymphocytes # (Auto) 1.2 TH/MM3 (1.0-4.8) Monocytes # (Auto) 0.8 TH/MM3 (0-0.9) Eosinophils # (Auto) 0.2 TH/MM3 (0-0.4) Basophils # (Auto) 0.0 TH/MM3 (0-0.2) CBC Comment DIFF FINAL Differential Comment Sodium Level 141 MEQ/L (136-145) Potassium Level 4.1 MEQ/L (3.5-5.1) Chloride Level 106 MEQ/L (98-107) Carbon Dioxide Level 27.0 MEQ/L (21.0-32.0) Anion Gap 8 MEQ/L (5-15) Blood Urea Nitrogen 12 MG/DL (7-18) Creatinine 0.72 MG/DL (0.60-1.30) Estimat Glomerular Filtration 109 ML/MIN Rate (>89) Random Glucose 79 MG/DL (74-106) Hemoglobin A1c 10.4 % (4.3-6.0) Calcium Level 8.0 MG/DL (8.5-10.1) Protein Corrected Calcium 8.8 MG/DL (8.5-10.1) Total Bilirubin 0.5 MG/DL (0.2-1.0) Aspartate Amino Transf 10 U/L (15-37) (AST/SGOT) Alanine Aminotransferase 16 U/L (12-78) (ALT/SGPT) Alkaline Phosphatase 35 U/L (45-117) Total Protein 5.7 GM/DL (6.4-8.2) Albumin 2.4 GM/DL (3.4-5.0) Result Diagram: 07/29/1641807/29/16418 Cardiovascular: NSR (1) DM (diabetes mellitus) Plan: check blood sugars closely , decrease Novolin 70/30 to 20 units bid , pm snack see pcp next weeks (2) S/P CABG x 3 Plan: continue ASA, statin , BB f/u Dr Upton 08/15 doubt left lower lobe infiltrate agree with dc ABX, small bilateral effusion (3) Altered mental status, unspecified Plan: no further ambien at night take tylenol for pain pain med for severe pain only Problem Qualifiers (1) DM (diabetes mellitus): Freda Betancourt Jul 29, 2016 11:10
[2016-07-29 11:49] VITALS: BP 145/66; PULSE 72; RESP 18; TEMP 98.7; O2SAT 95
[2016-07-29] MEDS ORDERED: GABAPENTIN 300 MG CAP PO SCH (13:00)
[2016-07-29 15:12] VITALS: BP 161/72; PULSE 79; RESP 18; TEMP 99; O2SAT 95
[2016-07-29] MEDS ORDERED: NOVO7030P2 SQ (16:17)
[2016-07-29] MEDS ORDERED: INSULIN HUMAN NPH/R 70/30 1,000 UNITS/10 ML VIAL SQ SCH ×2 (17:00)
[2016-07-29] MEDS ORDERED: PANTOPRAZOLE SOD 20 MG DELAYED RELEASE TAB PO SCH (21:00)
[2016-07-29] MEDS ORDERED: CILOSTAZOL 100 MG TAB PO SCH (21:00)
[2016-07-30] MEDS ORDERED: LISINOPRIL 10 MG TAB PO SCH (09:00)
[2016-07-30] MEDS ORDERED: PRAVASTATIN SOD 80 MG TAB PO SCH (09:00)
[2016-07-30] MEDS ORDERED: ASPIRIN EC 81 MG TABEC PO SCH (09:00)
== END 2016-07-29 17:21 | disposition home or self-care (01) ==
LOC: NEPE 21:54 → NEDA 23:46 → NEPGCP 07-29 01:12
PROVIDERS: ADMIT Internal Medicine; ATTEND Internal Medicine
DX: G92 Toxic encephalopathy (principal); T42.6X5A Adverse effect of other antiepileptic and sedative-hypnotic drugs, initial encounter; J18.9 Pneumonia, unspecified organism; E11.649 Type 2 diabetes mellitus with hypoglycemia without coma; R53.83 Other fatigue; F03.90 Unspecified dementia, unspecified severity, without behavioral disturbance, psychotic disturbance, mood disturbance, and anxiety; E78.00 Pure hypercholesterolemia, unspecified; K21.9 Gastro-esophageal reflux disease without esophagitis; I10 Essential (primary) hypertension; D64.9 Anemia, unspecified; E83.51 Hypocalcemia; Z95.1 Presence of aortocoronary bypass graft
CPT/HCPCS: 70450; 71010; 80053; 80307; 81001; 82550; 82948; 83036; 84155; 84484; 85025; 85610; 85730; 93005; 96374; 99285; G0378; J2060; J2543; J3370; J7030; J7040; 80320

== ENCOUNTER 2016-09-03 16:15 | Emergency (ER) | payer MEDICARE, OTHER ==
[~2016-09-03 16:15] MED LIST changes: -GETGO ROLLING W1 MI1; -MISC-163; -ZOLP10TA3 PO
[2016-09-03 16:17] VITALS: BP 148/82; PULSE 102; RESP 20; TEMP 98.3; O2SAT 97
[2016-09-03 16:45] VITALS: BP 139/70; PULSE 90; PULSE 92; RESP 14; O2SAT 99
[2016-09-03] MEDS ORDERED: SODIUM CHLORIDE 0.9% FLUSH 10 ML FLUSH IVF PRN (16:45)
--- NOTE | 2016-09-03 17:02 | RADRPT ---
EXAM DATE/TIME: 09/03/2016 16:31 [facility] COMPARISON: CHEST SINGLE AP, July 28, 2016, 22:21. INDICATIONS : Chest pain. MEDICAL HISTORY : Hypertension. Diabetes mellitus type II. SURGICAL HISTORY : CABG. ENCOUNTER: Initial ACUITY: 1 day PAIN SCORE: 9/10 LOCATION: Bilateral chest FINDINGS: Cardiomegaly and sternotomy wires. Clear lungs. Degenerative changes of the spine. CONCLUSION: No acute disease. Finesse Felix MD on September 03, 2016 at 17:01 Board Certified Radiologist. This report was verified electronically.
[2016-09-03 17:07] LABS: AUTOMATED NEUTROPHIL # 7.1 TH/MM3 (1.8-7.7); BASOPHIL # 0.1 TH/MM3 (0-0.2); BASOPHIL % 0.6 % (0.0-2.0); EOSINOPHIL # 0.1 TH/MM3 (0-0.4); EOSINOPHIL % 0.8 % (0.0-4.0); HEMATOCRIT 41.4 % (39.0-51.0); HEMO FLAGS DIFF FINAL; LYMPH % 13.8 % (9.0-44.0); LYMPHOCYTE # 1.3 TH/MM3 (1.0-4.8); MEAN CELL VOLUME 88.8 FL (80.0-100.0); MEAN CORPUSCULAR HEMOGLOBIN 29.5 PG (27.0-34.0); MEAN CORPUSCULAR HGB CONC 33.2 % (32.0-36.0); NEUT % 75.8 % (16.0-70.0); PLATELET COUNT 262 TH/MM3 (150-450); RED BLOOD COUNT 4.66 MIL/MM3 (4.50-5.90); RED CELL DISTRIBUTION WIDTH 14.2 % (11.6-17.2); WHITE BLOOD COUNT 9.3 TH/MM3 (4.0-11.0)
--- NOTE | 2016-09-03 17:16 | PD ---
HPI Chief Complaint: Chest Pain Time Seen by Provider: 17:10 Travel History International Travel<30 days: No Contact w/Intl Traveler<30days: No Traveled to known affect area: No History of Present Illness HPI 66-year-old male that presents to the ED for evaluation of chest pain. Per patient he has this chest pain around 2:00 today. Per patient he had a severe sharp pain to left elbow 5 minutes and then moved to his right back. Per patient the back pain is not as bad but he was concerned because he does have surgery. Patient had a CABG [address] Upton 6 weeks ago. Patient follows with Dr. Madrigal for cardiology. Per patient he actually is out of both of them last week for a checkup and he was told that everything was fine. Per patient he was doing today was sitting. He denies any extremity is activity. Denies any shortness of breath. States that the pain in the chest is gone. Patient does take aspirin every day. Patient denies taking any other blood thinners. He does have a history of high blood pressure, high cholesterol, diabetes. Patient uses insulin. Patient denies any other medical problems. Pain at this time is 3 out of 10. Nothing makes it better or worse. The patient is achy. Patient states that the pain initially when she had the chest pain was severe and 7 out of 10. Allergies to metformin. PFSH Past Medical History Cancer: No Cardiovascular Problems: Yes High Cholesterol: Yes Chemotherapy: No Dementia: Yes Diabetes: Yes Diminished Hearing: No GERD: Yes Genitourinary: Yes (GERD) Hypertension: Yes Immune Disorder: Yes Neurologic: Yes (Dementia ) Psychiatric: No Reproductive: No Respiratory: No Immunizations Current: No Radiation Therapy: No Past Surgical History Coronary Artery Bypass Graft: Yes Other Surgery: Yes (neck surgery and left leg surgery ) Social History Alcohol Use: No Tobacco Use: No Substance Use: No Allergies-Medications (Allergen,Severity, Reaction): Coded Allergies: Metformin (Verified Allergy, Severe, Nausea/Vomiting, 03/01/15) AND SWEATING Reported Meds & Prescriptions Reported Meds & Active Scripts Active Indomethacin 50 Mg Cap 50 Mg PO TID PRN Take with food, milk, or antacids to decrease stomach adverse effects. Novolin 70-30 Inj (Insulin Human Isoph/Insulin Regular) 1,000 Unit/10 Ml Vial 35 Units SQ BID 30 Days Thera M Plus (Multivitamins/Minerals Therapeutic) 1 Tab 1 Tab PO DAILY Metoprolol Tartrate 25 Mg Tab 25 Mg PO BID Lisinopril 10 Mg Tab 10 Mg PO DAILY Dok (Docusate Sodium) 100 Mg Cap 100 Mg PO BID Amiodarone (Amiodarone HCl) 200 Mg Tab 200 Mg PO BID Reported Simvastatin 80 Mg Tab 80 Mg PO DAILY Cilostazol 100 Mg Tab 100 Mg PO BID Tramadol (Tramadol HCl) 50 Mg Tab 50 Mg PO TID PRN Aspirin 81 Mg Tabdr 81 Mg PO DAILY Omeprazole 20 Mg Tab 20 Mg PO BID Sertraline (Sertraline HCl) 100 Mg Tab 100 Mg PO BID Gabapentin 300 Mg Cap 300 Mg PO QID Review of Systems Except as stated in HPI: all other systems reviewed are Neg Physical Exam Narrative GENERAL: SKIN: Warm and dry. HEAD: Atraumatic. Normocephalic. EYES: Pupils equal and round. No scleral icterus. No injection or drainage. ENT: No nasal bleeding or discharge. Mucous membranes pink and moist. Tongue is midline. No uvula deviation. NECK: Trachea midline. No JVD. CARDIOVASCULAR: Regular rate and rhythm. No murmurs, S3, S4. RESPIRATORY: No accessory muscle use. Clear to auscultation. Breath sounds equal bilaterally. GASTROINTESTINAL: Abdomen soft, non-tender, nondistended. Hepatic and splenic margins not palpable. MUSCULOSKELETAL: Extremities without clubbing, cyanosis, or edema. No obvious deformities. Full range of motion of the upper and lower extremities bilaterally. 2+ pulses bilaterally. NEUROLOGICAL: Awake and alert. No obvious cranial nerve deficits. Motor grossly within normal limits. Five out of 5 muscle strength in the arms and legs. Normal speech. PSYCHIATRIC: Appropriate mood and affect; insight and judgment normal. Data Data Last Documented VS Vital Signs Date Time Temp Pulse Resp B/P Pulse Ox O2 Delivery O2 Flow Rate FiO2 09/03/16 17:47 90 14 138/60 99 Nasal Cannula 2 09/03/16 16:17 98.3 Orders Electrocardiogram (09/03/16 16:33) Ckmb (Isoenzyme) Profile (09/03/16 16:33) Complete Blood Count With Diff (09/03/16 16:33) Comprehensive Metabolic Panel (09/03/16 16:33) Magnesium (Mg) (09/03/16 16:33) Prothrombin Time / Inr (Pt) (09/03/16 16:33) Act Partial Throm Time (Ptt) (09/03/16 16:33) Troponin I (09/03/16 16:33) Lipase (09/03/16 16:33) Chest, Single Ap (09/03/16 16:33) Ecg Monitoring (09/03/16 16:33) Bilateral Bp Monitoring (09/03/16 16:33) Iv Access Insert/Monitor (09/03/16 16:33) Oximetry (09/03/16 16:33) Oxygen Administration (09/03/16 16:33) Sodium Chloride 0.9% Flush (Ns Flush) (09/03/16 16:45) D-Dimer (09/03/16 17:08) Ct Pulmonary Angiogram (09/03/16 ) Iohexol 350 Inj (Omnipaque 350 Inj) (09/03/16 18:22) Labs Laboratory Tests Test 09/03/16 16:40 White Blood Count 9.3 TH/MM3 Red Blood Count 4.66 MIL/MM3 Hemoglobin 13.7 GM/DL Hematocrit 41.4 % Mean Corpuscular Volume 88.8 FL Mean Corpuscular Hemoglobin 29.5 PG Mean Corpuscular Hemoglobin 33.2 % Concent Red Cell Distribution Width 14.2 % Platelet Count 262 TH/MM3 Mean Platelet Volume 8.0 FL Neutrophils (%) (Auto) 75.8 % Lymphocytes (%) (Auto) 13.8 % Monocytes (%) (Auto) 9.0 % Eosinophils (%) (Auto) 0.8 % Basophils (%) (Auto) 0.6 % Neutrophils # (Auto) 7.1 TH/MM3 Lymphocytes # (Auto) 1.3 TH/MM3 Monocytes # (Auto) 0.8 TH/MM3 Eosinophils # (Auto) 0.1 TH/MM3 Basophils # (Auto) 0.1 TH/MM3 CBC Comment DIFF FINAL Differential Comment Prothrombin Time 10.7 SEC Prothromb Time International 1.0 RATIO Ratio Activated Partial 26.4 SEC Thromboplast Time D-Dimer Quantitative (PE/DVT) 1.89 MG/L FEU Sodium Level 136 MEQ/L Potassium Level 4.4 MEQ/L Chloride Level 103 MEQ/L Carbon Dioxide Level 24.4 MEQ/L Anion Gap 9 MEQ/L Blood Urea Nitrogen 22 MG/DL Creatinine 1.02 MG/DL Estimat Glomerular Filtration 73 ML/MIN Rate Random Glucose 165 MG/DL Calcium Level 9.4 MG/DL Magnesium Level 2.0 MG/DL Total Bilirubin 0.4 MG/DL Aspartate Amino Transf 14 U/L (AST/SGOT) Alanine Aminotransferase 20 U/L (ALT/SGPT) Alkaline Phosphatase 94 U/L Total Creatine Kinase 48 U/L Troponin I LESS THAN 0.02 NG/ML Total Protein 7.8 GM/DL Albumin 3.7 GM/DL Lipase 60 U/L MDM Medical Decision Making Medical Screen Exam Complete: Yes Emergency Medical Condition: Yes Medical Record Reviewed: Yes Interpretation(s) CBC & BMP Diagram 09/03/16 16:40 troponin and CKMB negative Last Impressions Chest X-Ray 09/03/16 1633 Signed Impressions: Service Date/Time: Saturday, September 03, 2016 16:31 - CONCLUSION: No acute disease. Finesse Felix MD CT Angiography 09/03/16 0000 Signed Impressions: Service Date/Time: Saturday, September 03, 2016 18:10 - CONCLUSION: 1. No evidence of pulmonary emboli. 2. Small to moderate size pericardial effusion. 3. Small bilateral pleural effusions. 4. Postsurgical changes status post median sternotomy. Tung Mckeon MD EKG shows sinus rhythm with sign of acute ischemia read by me and attending. D-dimer elevated. Coags within normal limits. Differential Diagnosis Chest pain versus ACS versus a typical chest pain versus PE versus pneumonia versus fluid overload Narrative Course 66-year-old male that presents to the ED for evaluation of chest pain. Patient was properly examined and was found to have signs and symptoms of unclear etiology at this time. Patient does have risk factors for coronary disease but he did just had a CABG. At this time I recommend labs and imaging. Patient is agreement with this. Patient took an aspirin today. Therefore no new aspirin was given. Labs and imaging showed no sign of acute disease other than positive d-dimer. Hence CT was ordered. CT was negative but showing some mild to moderate pericardial effusion. This was discussed in my attending who recommends speaking Dr. Upton. I spoke on the phone with Dr. Upton who recommends starting patient in nonsteroidal medication for the pain and follow- up in his office. Patient was given results and recommendation by his surgeon and agrees with plan. Patient was sent home with prescription for indomethacin. Told to follow up with corporate physical security supervisor this week. See ED for any worsening symptoms. Diagnosis Primary Impression: Atypical chest pain Additional Impression: Pericardial effusion Patient Instructions: General Instructions Additional Instructions: Take medication as prescribed only if needed. Follow with PCP. See ED worsening symptoms. This medication could make her worse. make sure to continue taking your current medication. F/u with your surgeon and corporate physical security supervisor. Med/Other Pt SpecificInfo: Prescription(s) given Scripts Indomethacin 50 Mg Cap50 Mg PO TID PRN (PAIN SCALE 1 TO 10) #20 CAP Ref 0 Take with food, milk, or antacids to decrease stomach adverse effects. Prov:Millie Luis MD 09/03/16 Disposition: 01 DISCHARGE HOME Condition: Stable Sal Carlson Sep 03, 2016 17:16
[2016-09-03 17:20] LABS: APTT (PATIENT) 26.4 SEC (24.3-30.1); PROTHROMBIN TIME - PATIENT 10.7 SEC (9.8-11.6)
[2016-09-03 17:28] LABS: ANION GAP 9 MEQ/L (5-15); AST (GOT) 14 U/L (15-37); BICARBONATE 24.4 MEQ/L (21.0-32.0); BLOOD UREA NITROGEN 22 MG/DL (7-18); CHLORIDE 103 MEQ/L (98-107); GLOMERULAR FILTRATION RATE 73 ML/MIN (>89); POTASSIUM 4.4 MEQ/L (3.5-5.1); SODIUM (NA) 136 MEQ/L (136-145)
[2016-09-03 17:33] LABS: ALKALINE PHOSPHATASE 94 U/L (45-117); ALT (GPT) 20 U/L (12-78); TOTAL BILIRUBIN ADULT 0.4 MG/DL (0.2-1.0)
[2016-09-03 17:34] LABS: CREATINE KINASE 48 U/L (39-308)
[2016-09-03 17:47] VITALS: BP 138/60; PULSE 90; RESP 14; O2SAT 99
[2016-09-03] MEDS ORDERED: IOHEXOL 350 MG/ML 10 ML VIAL (for RAD DIAG) IV ONE (18:22)
--- NOTE | 2016-09-03 18:31 | RADRPT ---
EXAM DATE/TIME: 09/03/2016 18:10 [facility] COMPARISON: CHEST SINGLE AP, September 03, 2016, 16:31. INDICATIONS : Chest pain radiating to the back. IV CONTRAST: 50 cc Omnipaque 350 (iohexol) IV RADIATION DOSE: 16.69 CTDIvol (mGy) MEDICAL HISTORY : Dementia. Gastroesophageal reflux disease. Diabetes. SURGICAL HISTORY : CABG ENCOUNTER: Initial ACUITY: 1 day PAIN SCALE: 6/10 LOCATION: chest TECHNIQUE: Volumetric scanning of the chest was performed using a pulmonary embolism protocol MIP images were re constructed. Using automated exposure control and adjustment of the mA and/or kV according to patien t size, radiation dose was kept as low as reasonably achievable to obtain optimal diagnostic quality images. FINDINGS: PULMONARY ARTERIES: No filling defects are seen in the pulmonary arteries through the segmental level. LUNGS: There is no consolidation or pneumothorax . No concerning pulmonary nodule is visualized. PLEURAE: There is small bilateral pleural effusions. MEDIASTINUM: There is good visualization of the great vessels of the middle mediastinum. No evidence of mediastin al or hilar adenopathy/mass. There is a small to moderate pericardial effusion. There are postsurgica l changes status post median sternotomy. MUSCULOSKELETAL: Within normal limits for patient age. MISCELLANEOUS: The visualized upper abdominal organs demonstrate no acute abnormality. CONCLUSION: 1. No evidence of pulmonary emboli. 2. Small to moderate size pericardial effusion. 3. Small bilateral pleural effusions. 4. Postsurgical changes status post median sternotomy. Tung Mckeon MD on September 03, 2016 at 18:25 Board Certified Radiologist. This report was verified electronically.
--- NOTE | 2016-09-03 18:41 | PD ---
Data Data Last Documented VS Vital Signs Date Time Temp Pulse Resp B/P Pulse Ox O2 Delivery O2 Flow Rate FiO2 09/03/16 17:47 90 14 138/60 99 Nasal Cannula 2 09/03/16 16:17 98.3 Orders Electrocardiogram (09/03/16 16:33) Ckmb (Isoenzyme) Profile (09/03/16 16:33) Complete Blood Count With Diff (09/03/16 16:33) Comprehensive Metabolic Panel (09/03/16 16:33) Magnesium (Mg) (09/03/16 16:33) Prothrombin Time / Inr (Pt) (09/03/16 16:33) Act Partial Throm Time (Ptt) (09/03/16 16:33) Troponin I (09/03/16 16:33) Lipase (09/03/16 16:33) Chest, Single Ap (09/03/16 16:33) Ecg Monitoring (09/03/16 16:33) Bilateral Bp Monitoring (09/03/16 16:33) Iv Access Insert/Monitor (09/03/16 16:33) Oximetry (09/03/16 16:33) Oxygen Administration (09/03/16 16:33) Sodium Chloride 0.9% Flush (Ns Flush) (09/03/16 16:45) D-Dimer (09/03/16 17:08) Ct Pulmonary Angiogram (09/03/16 ) Iohexol 350 Inj (Omnipaque 350 Inj) (09/03/16 18:22) Labs Laboratory Tests Test 09/03/16 16:40 White Blood Count 9.3 TH/MM3 Red Blood Count 4.66 MIL/MM3 Hemoglobin 13.7 GM/DL Hematocrit 41.4 % Mean Corpuscular Volume 88.8 FL Mean Corpuscular Hemoglobin 29.5 PG Mean Corpuscular Hemoglobin 33.2 % Concent Red Cell Distribution Width 14.2 % Platelet Count 262 TH/MM3 Mean Platelet Volume 8.0 FL Neutrophils (%) (Auto) 75.8 % Lymphocytes (%) (Auto) 13.8 % Monocytes (%) (Auto) 9.0 % Eosinophils (%) (Auto) 0.8 % Basophils (%) (Auto) 0.6 % Neutrophils # (Auto) 7.1 TH/MM3 Lymphocytes # (Auto) 1.3 TH/MM3 Monocytes # (Auto) 0.8 TH/MM3 Eosinophils # (Auto) 0.1 TH/MM3 Basophils # (Auto) 0.1 TH/MM3 CBC Comment DIFF FINAL Differential Comment Prothrombin Time 10.7 SEC Prothromb Time International 1.0 RATIO Ratio Activated Partial 26.4 SEC Thromboplast Time D-Dimer Quantitative (PE/DVT) 1.89 MG/L FEU Sodium Level 136 MEQ/L Potassium Level 4.4 MEQ/L Chloride Level 103 MEQ/L Carbon Dioxide Level 24.4 MEQ/L Anion Gap 9 MEQ/L Blood Urea Nitrogen 22 MG/DL Creatinine 1.02 MG/DL Estimat Glomerular Filtration 73 ML/MIN Rate Random Glucose 165 MG/DL Calcium Level 9.4 MG/DL Magnesium Level 2.0 MG/DL Total Bilirubin 0.4 MG/DL Aspartate Amino Transf 14 U/L (AST/SGOT) Alanine Aminotransferase 20 U/L (ALT/SGPT) Alkaline Phosphatase 94 U/L Total Creatine Kinase 48 U/L Troponin I LESS THAN 0.02 NG/ML Total Protein 7.8 GM/DL Albumin 3.7 GM/DL Lipase 60 U/L MDM Supervised Visit with GINNY: Yes Narrative Course I, Dr. Luis, have reviewed the advance practice practioner's documentation and am in agreement, met with the patient face to face, made the diagnosis, and the medical decision making was done by me. *My assessment and Findings: 66 year-old male proximal Lasix weeks status post three-vessel CABG by Dr. Mac here with complaint of 3-4 spells of left-sided chest pain, pressure lasting for approximately 3-5 minutes each time. Nothing seems to bring it on or make it better when present. Some associated shortness of breath which is mild and gradually improving since his postop course. That is not acutely worse today. Patient does not have any reproducible tenderness to palpation and is pain-free on my exam, slightly tachycardic initially, but normalized upon recheck. Differential includes ACS, atypical chest pain, PE. D -dimer slightly elevated and therefore CT pulmonary injury gram was obtained. This is negative, though does show a small likely postoperative pericardial effusion. EKG and enzymes unremarkable. Patient is pain-free at this time. Will speak with cardiothoracic surgery regarding the recommendations for admission and serial cardiac enzymes versus disposition home. Millie Luis MD Sep 03, 2016 18:41
[2016-09-03] MEDS ORDERED: INDO50CA PO (18:48)
[2016-09-03 19:48] VITALS: BP 150/63
--- NOTE | 2016-09-04 10:52 | EKG ---
Date Performed: 09/03/2016 Time Performed: 16:53:29 PTAGE: 66 years EKG: Sinus rhythm POSSIBLE LEFT ATRIAL ENLARGEMENT MARKED LEFT AXIS DEVIATION INCOMPLETE RIGHT BUNDLE BRANCH BLOCK ST DEVIATION AND MODERATE T-WAVE ABNORMALITY, CONSIDER LATERAL ISCHEMIA ABNORMAL ECG PREVIOUS TRACING : 07/28/2016 22.30 DOCTOR: Samy Phoenix Interpretating Date/Time 09/04/2016 10:50:56
== END 2016-09-03 20:20 | disposition home or self-care (01) ==
LOC: NEPC 16:15
DX: R07.89 Other chest pain (principal); I31.3 Pericardial effusion (noninflammatory); I10 Essential (primary) hypertension; F03.90 Unspecified dementia, unspecified severity, without behavioral disturbance, psychotic disturbance, mood disturbance, and anxiety; E78.00 Pure hypercholesterolemia, unspecified; K21.9 Gastro-esophageal reflux disease without esophagitis; Z79.4 Long term (current) use of insulin; R94.31 Abnormal electrocardiogram [ECG] [EKG]; R07.9 Chest pain, unspecified; I45.10 Unspecified right bundle-branch block
CPT/HCPCS: 71010; 71275; 80053; 82550; 83690; 83735; 84484; 85025; 85379; 85610; 85730; 93005; 99285; Q9967

== ENCOUNTER 2017-06-03 15:13 | Observation (INO) | payer OTHER ==
[~2017-06-03 15:13] MED LIST changes: +INDO50CA PO; -OMEP20TA PO; +OMEP20TA93 PO
[2017-06-03 15:17] VITALS: BP 136/81; PULSE 80; RESP 14; TEMP 97.8; O2SAT 99
--- NOTE | 2017-06-03 16:08 | RADRPT ---
EXAM DATE/TIME: 06/03/2017 15:54 [facility] COMPARISON: CHEST SINGLE AP, September 03, 2016, 16:31. INDICATIONS : Chest pain. MEDICAL HISTORY : dementia, GERD SURGICAL HISTORY : CABG. ENCOUNTER: Initial ACUITY: 1 day PAIN SCORE: 8/10 LOCATION: Bilateral chest FINDINGS: Mild linear bibasilar parenchymal opacities may be mild atelectasis or minimal infiltrate. There's no evidence of effusion. Cardiac contours are stable and satisfactory. Sternotomy wires are noted. Ther e are healed posterior right rib fractures. Degenerative changes noted in the spine. CONCLUSION: Minimal basilar parenchymal opacities. Michael Mac MD on June 03, 2017 at 16:04 Board Certified Radiologist. This report was verified electronically.
[2017-06-03 17:10] LABS: AUTOMATED NEUTROPHIL # 4.5 TH/MM3 (1.8-7.7); BASOPHIL % 0.6 % (0.0-2.0); EOSINOPHIL # 0.1 TH/MM3 (0-0.4); EOSINOPHIL % 1.4 % (0.0-4.0); HEMATOCRIT 44.1 % (39.0-51.0); HEMOGLOBIN 15.3 GM/DL (13.0-17.0); LYMPH % 20.9 % (9.0-44.0); LYMPHOCYTE # 1.4 TH/MM3 (1.0-4.8); MEAN CELL VOLUME 91.6 FL (80.0-100.0); MEAN CORPUSCULAR HEMOGLOBIN 31.7 PG (27.0-34.0); MEAN CORPUSCULAR HGB CONC 34.6 % (32.0-36.0); MEAN PLATELET VOLUME 7.5 FL (7.0-11.0); MONO % 8.6 % (0.0-8.0); MONOCYTE # 0.6 TH/MM3 (0-0.9); NEUT % 68.5 % (16.0-70.0); PLATELET COUNT 211 TH/MM3 (150-450); RED BLOOD COUNT 4.81 MIL/MM3 (4.50-5.90); RED CELL DISTRIBUTION WIDTH 12.9 % (11.6-17.2); WHITE BLOOD COUNT 6.6 TH/MM3 (4.0-11.0)
[2017-06-03 17:34] LABS: ALBUMIN 4.2 GM/DL (3.4-5.0); ALT (GPT) 23 U/L (12-78); AST (GOT) 19 U/L (15-37); BICARBONATE 24.2 MEQ/L (21.0-32.0); BLOOD UREA NITROGEN 20 MG/DL (7-18); CALCIUM 9.2 MG/DL (8.5-10.1); CHLORIDE 104 MEQ/L (98-107); CREATININE 0.85 MG/DL (0.60-1.30); GLOMERULAR FILTRATION RATE 90 ML/MIN (>89); GLUCOSE,RANDOM 65 MG/DL (74-106); LIPASE 87 U/L (73-393); MAGNESIUM 2.1 MG/DL (1.5-2.5); SODIUM (NA) 135 MEQ/L (136-145)
[2017-06-03 17:37] LABS: PROTHROMBIN TIME - PATIENT 10.1 SEC (9.8-11.6)
[2017-06-03 17:38] LABS: ALKALINE PHOSPHATASE 62 U/L (45-117); TOTAL BILIRUBIN ADULT 0.3 MG/DL (0.2-1.0); TOTAL PROTEIN 8.4 GM/DL (6.4-8.2); TROPONIN I LESS THAN 0.02 NG/ML (0.02-0.05)
[2017-06-03 20:28] VITALS: BP 163/88; PULSE 72; TEMP 97.7; O2SAT 95
--- NOTE | 2017-06-03 21:32 | PD ---
HPI Chief Complaint: Chest Pain Time Seen by Provider: 21:17 Travel History International Travel<30 days: No Contact w/Intl Traveler<30days: No Traveled to known affect area: No History of Present Illness HPI 66-year-old male with a history of CABG in July 2015 and diabetes mellitus type 2 presents to emergency department with complaints of left midsternal chest pain that started about 2:30 this afternoon.. He states that at the time he felt short of breath and was slightly nauseous and dizzy. Patient denies radiation of his pain and describes it as squeezing. Patient states that he was sitting at the onset of his chest pain and was present for about 20 minutes. Patient did not take any medication to relieve his pain. Patient not on any anticoagulants except aspirin daily. Patient does not currently follow a database architect although his [facility] doctor is working on approval to [facility] heart [facility]. Patient denies chronic pulmonary or kidney issues. States he does have a history of Agent Mccone as a [place] vet. PFSH Past Medical History Cancer: No Cardiovascular Problems: Yes High Cholesterol: Yes Chemotherapy: No Dementia: Yes Diabetes: Yes Diminished Hearing: No GERD: Yes Genitourinary: Yes (GERD) Hypertension: Yes Immune Disorder: Yes Neurologic: Yes (Dementia ) Psychiatric: No Reproductive: No Respiratory: No Immunizations Current: No Radiation Therapy: No Past Surgical History Coronary Artery Bypass Graft: Yes Other Surgery: Yes (neck surgery and left leg surgery ) Social History Alcohol Use: No Tobacco Use: No Substance Use: No Allergies-Medications (Allergen,Severity, Reaction): Coded Allergies: No Known Allergies (Unverified , 06/03/17) Reported Meds & Prescriptions Reported Meds & Active Scripts Active Indomethacin 50 Mg Cap 50 Mg PO TID PRN Take with food, milk, or antacids to decrease stomach adverse effects. Thera M Plus (Multivitamins/Minerals Therapeutic) 1 Tab 1 Tab PO DAILY Metoprolol Tartrate 25 Mg Tab 25 Mg PO BID Lisinopril 10 Mg Tab 10 Mg PO DAILY Dok (Docusate Sodium) 100 Mg Cap 100 Mg PO BID Reported Metformin (Metformin HCl) 500 Mg Tab 500 Mg PO BIDPC Lantus Inj (Insulin Glargine) 1,000 Unit/10 Ml Vial 70 Units SQ DAILY Aspirin 81 Mg Chew 81 Mg CHEW DAILY Simvastatin 80 Mg Tab 80 Mg PO DAILY Cilostazol 100 Mg Tab 100 Mg PO BID Tramadol (Tramadol HCl) 50 Mg Tab 50 Mg PO TID PRN Omeprazole 20 Mg Tab 20 Mg PO BID Sertraline (Sertraline HCl) 100 Mg Tab 100 Mg PO BID Gabapentin 300 Mg Cap 300 Mg PO QID Review of Systems Except as stated in HPI: all other systems reviewed are Neg Physical Exam Narrative GENERAL: Well-nourished in no apparent distress, resting comfortably in bed SKIN: Focused skin assessment warm/dry. HEAD: Atraumatic. Normocephalic. EYES: Pupils equal and round. No scleral icterus. No injection or drainage. ENT: No nasal bleeding or discharge. Mucous membranes pink and moist. NECK: Trachea midline. No JVD. CARDIOVASCULAR: Regular rate and rhythm. No murmur appreciated. RESPIRATORY: No accessory muscle use. Bilateral lower lobes with faint rales versus rhonchi GASTROINTESTINAL: Abdomen soft, non-tender, nondistended. MUSCULOSKELETAL: No obvious deformities. No clubbing. No cyanosis. No edema. No CVA tenderness NEUROLOGICAL: Awake and alert. No obvious cranial nerve deficits. Motor grossly within normal limits. Normal speech. PSYCHIATRIC: Appropriate mood and affect; insight and judgment normal. Data Data Last Documented VS Vital Signs Date Time Temp Pulse Resp B/P (MAP) Pulse Ox O2 Delivery O2 Flow Rate FiO2 06/03/17 20:28 97.7 72 163/88 (113) 95 06/03/17 15:17 14 Orders Orders Electrocardiogram (06/03/17 15:42) Ckmb (Isoenzyme) Profile (06/03/17 15:42) Complete Blood Count With Diff (06/03/17 15:42) Comprehensive Metabolic Panel (06/03/17 15:42) Magnesium (Mg) (06/03/17 15:42) Prothrombin Time / Inr (Pt) (06/03/17 15:42) Act Partial Throm Time (Ptt) (06/03/17 15:42) Troponin I (06/03/17 15:42) Lipase (06/03/17 15:42) Chest, Pa & Lat (06/03/17 15:42) CKMB (06/03/17 16:52) CKMB% (06/03/17 16:52) Activity Bed Rest With Brp (06/03/17 21:32) Vital Signs (Adult) Q4H (06/03/17 21:32) Cardiac Rhythm .As Directed (06/03/17 21:32) Notify Dr: Other .PRN (06/03/17 21:32) Notify Dr. Parameters (06/03/17 21:32) Resp Oxygen Nasal Cannula (06/03/17 ) Diet Heart Healthy (06/04/17 Breakfast) Ckmb (Isoenzyme) Profile (06/03/17 21:32) Ckmb (Isoenzyme) Profile (06/04/17 00:32) Troponin I (06/03/17 21:32) Troponin I (06/04/17 00:32) Electrocardiogram (06/03/17 21:32) Electrocardiogram (06/04/17 00:32) ^ Obtain (06/03/17:32) Sodium Chloride 0.9% Flush (Ns Flush) (06/03/17 21:45) Sodium Chloride 0.9% Flush (Ns Flush) (06/04/17 09:00) Speed Winder / Telemetry [id number] (06/03/17 21:32) Admit Order (Ed Use Only) (06/03/17 21:32) CKMB (06/03/17 21:45) CKMB% (06/03/17 21:45) CKMB (06/04/17 00:01) CKMB% (06/04/17 00:01) Labs Laboratory Tests Test 06/03/17 16:52 White Blood Count 6.6 TH/MM3 Red Blood Count 4.81 MIL/MM3 Hemoglobin 15.3 GM/DL Hematocrit 44.1 % Mean Corpuscular Volume 91.6 FL Mean Corpuscular Hemoglobin 31.7 PG Mean Corpuscular Hemoglobin Concent 34.6 % Red Cell Distribution Width 12.9 % Platelet Count 211 TH/MM3 Mean Platelet Volume 7.5 FL Neutrophils (%) (Auto) 68.5 % Lymphocytes (%) (Auto) 20.9 % Monocytes (%) (Auto) 8.6 % Eosinophils (%) (Auto) 1.4 % Basophils (%) (Auto) 0.6 % Neutrophils # (Auto) 4.5 TH/MM3 Lymphocytes # (Auto) 1.4 TH/MM3 Monocytes # (Auto) 0.6 TH/MM3 Eosinophils # (Auto) 0.1 TH/MM3 Basophils # (Auto) 0.0 TH/MM3 CBC Comment DIFF FINAL Differential Comment Prothrombin Time 10.1 SEC Prothromb Time International Ratio 1.0 RATIO Activated Partial Thromboplast Time 26.2 SEC Blood Urea Nitrogen 20 MG/DL Creatinine 0.85 MG/DL Random Glucose 65 MG/DL Total Protein 8.4 GM/DL Albumin 4.2 GM/DL Calcium Level 9.2 MG/DL Magnesium Level 2.1 MG/DL Alkaline Phosphatase 62 U/L Aspartate Amino Transf (AST/SGOT) 19 U/L Alanine Aminotransferase (ALT/SGPT) 23 U/L Total Bilirubin 0.3 MG/DL Sodium Level 135 MEQ/L Potassium Level 4.0 MEQ/L Chloride Level 104 MEQ/L Carbon Dioxide Level 24.2 MEQ/L Anion Gap 7 MEQ/L Estimat Glomerular Filtration Rate 90 ML/MIN Total Creatine Kinase 193 U/L Creatine Kinase MB 2.8 NG/ML Troponin I LESS THAN 0.02 NG/ML Lipase 87 U/L MDM Medical Decision Making Medical Screen Exam Complete: Yes Emergency Medical Condition: Yes Differential Diagnosis NSTEMI, CHF, PNA, STEMI Narrative Course 66-year-old male with a history of CABG in July 2015 and diabetes mellitus type 2 presents to emergency department with complaints of left midsternal chest pain that started about 2:30 this afternoon. He states that at the time he felt short of breath and was slightly nauseous and dizzy. Patient denies radiation of his pain and describes it as squeezing. Patient states that he was sitting at the onset of his chest pain and was present for about 20 minutes. Patient did not take any medication to relieve his pain. Patient not on any anticoagulants except aspirin daily. Patient does not currently follow a database architect although his [facility] doctor is working on approval to [facility]. Patient denies chronic pulmonary or kidney issues. States he does have a history of Agent Mccone as a [place] vet. Vital signs stable. Physical exam findings unremarkable. Laboratory Tests Test 06/03/17 16:52 White Blood Count 6.6 TH/MM3 Red Blood Count 4.81 MIL/MM3 Hemoglobin 15.3 GM/DL Hematocrit 44.1 % Mean Corpuscular Volume 91.6 FL Mean Corpuscular Hemoglobin 31.7 PG Mean Corpuscular Hemoglobin Concent 34.6 % Red Cell Distribution Width 12.9 % Platelet Count 211 TH/MM3 Mean Platelet Volume 7.5 FL Neutrophils (%) (Auto) 68.5 % Lymphocytes (%) (Auto) 20.9 % Monocytes (%) (Auto) 8.6 % Eosinophils (%) (Auto) 1.4 % Basophils (%) (Auto) 0.6 % Neutrophils # (Auto) 4.5 TH/MM3 Lymphocytes # (Auto) 1.4 TH/MM3 Monocytes # (Auto) 0.6 TH/MM3 Eosinophils # (Auto) 0.1 TH/MM3 Basophils # (Auto) 0.0 TH/MM3 CBC Comment DIFF FINAL Differential Comment Prothrombin Time 10.1 SEC Prothromb Time International Ratio 1.0 RATIO Activated Partial Thromboplast Time 26.2 SEC Blood Urea Nitrogen 20 MG/DL Creatinine 0.85 MG/DL Random Glucose 65 MG/DL Total Protein 8.4 GM/DL Albumin 4.2 GM/DL Calcium Level 9.2 MG/DL Magnesium Level 2.1 MG/DL Alkaline Phosphatase 62 U/L Aspartate Amino Transf (AST/SGOT) 19 U/L Alanine Aminotransferase (ALT/SGPT) 23 U/L Total Bilirubin 0.3 MG/DL Sodium Level 135 MEQ/L Potassium Level 4.0 MEQ/L Chloride Level 104 MEQ/L Carbon Dioxide Level 24.2 MEQ/L Anion Gap 7 MEQ/L Estimat Glomerular Filtration Rate 90 ML/MIN Total Creatine Kinase 193 U/L Creatine Kinase MB 2.8 NG/ML Troponin I LESS THAN 0.02 NG/ML Lipase 87 U/L Last Impressions Chest X-Ray 06/03/17 1542 Signed Impressions: Service Date/Time: Saturday, June 03, 2017 15:54 - CONCLUSION: Minimal basilar parenchymal opacities. Michael Mac MD EKG- sinus rhythm, biphasic P waves, no ST depressions or elevations. Patient has a significant history for diabetes and CABG in July 2015. Patient is not currently follow database architect and is not taking any anticoagulants except for ASA daily. I believe he would benefit from observation in the chest pain center, especially with the likely non compliance. Patient will be admitted to the chest pain center. Diagnosis Primary Impression: Atypical chest pain Condition: Stable Rosey Roy Jun 03, 2017 21:32
[2017-06-03 21:36] VITALS: BP 168/80; PULSE 78; RESP 18; TEMP 97.9; O2SAT 98
[2017-06-03] MEDS ORDERED: ASPI-516 CHEW (21:41)
[2017-06-03] MEDS ORDERED: LANTUS2P SQ (21:42)
[2017-06-03] MEDS ORDERED: METF500T PO (21:42)
[2017-06-03] MEDS ORDERED: SODIUM CHLORIDE 0.9% FLUSH 10 ML FLUSH IV FLUSH PRN (21:45)
[2017-06-03 22:48] LABS: TROPONIN I LESS THAN 0.02 NG/ML (0.02-0.05)
[2017-06-04 00:29] VITALS: BP 125/62; PULSE 80; RESP 16; O2SAT 96
[2017-06-04 00:49] LABS: TROPONIN I LESS THAN 0.02 NG/ML (0.02-0.05)
[2017-06-04 03:26] VITALS: BP 132/74; PULSE 84; RESP 18; TEMP 97.9; O2SAT 96
[2017-06-04 03:59] VITALS: PULSE 84
[2017-06-04 07:50] VITALS: PULSE 89
[2017-06-04] MEDS ORDERED: ONDANSETRON HCL 4 MG/2 ML VIAL IV PUSH PRN (08:00)
[2017-06-04] MEDS ORDERED: NITROGLYCERIN 0.4 MG SL 25 TABS/BTL SL PRN (08:00)
[2017-06-04] MEDS ORDERED: ACETAMINOPHEN 500 MG CPLT PO PRN (08:00)
[2017-06-04 08:09] VITALS: BP 146/70; PULSE 78; RESP 18; TEMP 98; O2SAT 95
--- NOTE | 2017-06-04 08:15 | HHI.HP ---
HPI Primary Care Physician [facility] Chief Complaint Chest pain History of Present Illness 66-year-old male with known coronary artery disease, CABG 3 (07/2016), type 2 insulin-dependent diabetes, hypertension, and former smoker presents to emergency room for further evaluation of chest pain. Onset yesterday afternoon while gardening. Location left anterior chest. Characterized as pressure. Severity mild. No radiation of pain. Duration 20 minutes. Associated symptoms included slight dyspnea, nausea, and dizziness. Denies vomiting or diaphoresis. Precipitating factors he relates to "heavy gardening." No known relieving factors. Endorses pain is similar to pain prior to requiring open heart surgery, although not as severe. Denies chest pain center open heart surgery in July 2016. Chest pain-free since arrival to ER. Review of Systems General: No fatigue,weakness, fever, chills, recent illness, or change in appetite. Has been vision also help. HEENT: No WAYNE, no vision changes, no nasal congestion or drainage, no dysphasia CV: As stated above. No current chest pain or pressure. RESP: No SOB, cough, wheeze, or recent URI. GI: No nausea, vomiting, bowel changes, diarrhea, constipation, pain, distention , melena, or blood in the stool. : No dysuria, urgency, frequency EXT: No lower leg edema, no paraesthesias MS: No discomfort or change in ROM NEURO: No change in memory, difficulty with balance, LOC, motor/sensory deficits PSYCH: No anxiety, depression SKIN: No rashes, no concerning lesions Past Family Social History Allergies: Coded Allergies: No Known Allergies (Unverified , 06/03/17) Past Medical History Coronary artery disease, type 2 diabetes insulin-dependent, hypertension, former smoker, bilateral lower leg extremity neuropathy, Agent Kim exposure Past Surgical History CABG times 26 July 2016, cervical surgery Reported Medications Reported Meds & Active Scripts Active Indomethacin 50 Mg Cap 50 Mg PO TID PRN Take with food, milk, or antacids to decrease stomach adverse effects. Thera M Plus (Multivitamins/Minerals Therapeutic) 1 Tab 1 Tab PO DAILY Metoprolol Tartrate 25 Mg Tab 25 Mg PO BID Lisinopril 10 Mg Tab 10 Mg PO DAILY Dok (Docusate Sodium) 100 Mg Cap 100 Mg PO BID Metformin (Metformin HCl) 500 Mg Tab 500 Mg PO BIDPC Lantus Inj (Insulin Glargine) 1,000 Unit/10 Ml Vial 70 Units SQ DAILY Aspirin 81 Mg Chew 81 Mg CHEW DAILY Simvastatin 80 Mg Tab 80 Mg PO DAILY Cilostazol 100 Mg Tab 100 Mg PO BID Tramadol (Tramadol HCl) 50 Mg Tab 50 Mg PO TID PRN Omeprazole 20 Mg Tab 20 Mg PO BID Sertraline (Sertraline HCl) 100 Mg Tab 100 Mg PO BID Gabapentin 300 Mg Cap 300 Mg PO QID Active Ordered Medications Current Medications Medications (Trade) Dose Ordered Sig/Bernice Route Start Time Stop Time Status Last Admin (NS Flush) 2 ml UNSCH PRN IV FLUSH 06/03/17 21:45 (NS Flush) 2 ml BID IV FLUSH 06/04/17 09:00 (Tylenol) 500 mg Q4H PRN PO 06/04/17 08:00 UNV (Zofran Inj) 4 mg Q6H PRN IV PUSH 06/04/17 08:00 UNV (Nitrostat Sl) 0.4 mg Q5M PRN SL 06/04/17 08:00 UNV (Aspirin) 325 mg DAILY PO 06/04/17 09:00 UNV Social History Known coronary artery disease, hypertension, and diabetes. Appropriately on statin therapy. Former smoker. [id number] history. . Endorses an active lifestyle. Past cardiac testing Cardiac surgery CABG 3-BOWEN to LAD, SVG to OM 2, SVG to PLB No recent cardiac testing. In the process of establishing with a local surtass analyst [facility] with [facility] to establish with a [facility] group. 11/23/2015 Lexiscan normal exam, EF 55%. Physical Exam Vital Signs Vital Signs Date Time Temp Pulse Resp B/P (MAP) Pulse Ox O2 Delivery O2 Flow Rate FiO2 06/04/17 08:09 98.0 78 18 146/70 (95) 95 06/04/17 03:59 84 06/04/17 03:26 97.9 84 18 132/74 (93) 96 06/04/17 01:41 06/04/17 00:29 80 16 125/62 (83) 96 Room Air 06/03/17 21:36 97.9 78 18 168/80 (109) 98 Room Air 06/03/17 20:28 97.7 72 163/88 (113) 95 06/03/17 15:17 97.8 80 14 136/81 (99) 99 Physical Exam GENERAL: Alert WN, WD, NAD, pleasant, male HEAD: NC, AT CV: RRR, without murmur, rub, gallop, no JVD, S1-S2 no S3-S4. Chest wall nontender with palpation. RESP: Clear lungs throughout bilateral, no crackles, wheeze, rhonchi, symmetrical chest rise, nonlabored, able to speak in full sentences ABD: Soft, NT, ND, no masses, positive bowel tones EXT: Pulses +24, no dependent edema MS: Normal tone 4 extremities, no obvious deformities, full range of motion NEURO: CN II through CN XII grossly intact, motor strength 5/5 PSYCH: A+O 3, pleasant affect, appropriate speech, appropriate mood and affect , insight and judgment SKIN: Normal turgor, normal texture, no lesions, no rashes, brisk cap refill, even hair distribution Laboratory Laboratory Tests Test 06/03/17 16:52 06/03/17 21:45 06/04/17 00:01 White Blood Count 6.6 Red Blood Count 4.81 Hemoglobin 15.3 Hematocrit 44.1 Mean Corpuscular Volume 91.6 Mean Corpuscular Hemoglobin 31.7 Mean Corpuscular Hemoglobin Concent 34.6 Red Cell Distribution Width 12.9 Platelet Count 211 Mean Platelet Volume 7.5 Neutrophils (%) (Auto) 68.5 Lymphocytes (%) (Auto) 20.9 Monocytes (%) (Auto) 8.6 Eosinophils (%) (Auto) 1.4 Basophils (%) (Auto) 0.6 Neutrophils # (Auto) 4.5 Lymphocytes # (Auto) 1.4 Monocytes # (Auto) 0.6 Eosinophils # (Auto) 0.1 Basophils # (Auto) 0.0 CBC Comment DIFF FINAL Differential Comment Prothrombin Time 10.1 Prothromb Time International Ratio 1.0 Activated Partial Thromboplast Time 26.2 Blood Urea Nitrogen 20 Creatinine 0.85 Random Glucose 65 Total Protein 8.4 Albumin 4.2 Calcium Level 9.2 Magnesium Level 2.1 Alkaline Phosphatase 62 Aspartate Amino Transf (AST/SGOT) 19 Alanine Aminotransferase (ALT/SGPT) 23 Total Bilirubin 0.3 Sodium Level 135 Potassium Level 4.0 Chloride Level 104 Carbon Dioxide Level 24.2 Anion Gap 7 Estimat Glomerular Filtration Rate 90 Total Creatine Kinase 193 160 175 Creatine Kinase MB 2.8 2.3 2.3 Troponin I LESS THAN 0.02 LESS THAN 0.02 LESS THAN 0.02 Lipase 87 Result Diagram: 06/03/17 1652 06/03/17 1652 Imaging Last 48 hours Impressions Myocardial Perfusion Scan Nuc Med 06/04/17 0000 Signed Impressions: Service Date/Time: Sunday, June 04, 2017 10:38 - CONCLUSION: 1. No significant reversibility to suggest ischemia. 2. Normal wall motion with ejection fraction 63%%. RISK CATEGORY: Low (<1%% Annual Mortality Rate) Jose Daniel Sarmiento MD Chest X-Ray 06/03/17 1542 Signed Impressions: Service Date/Time: Saturday, June 03, 2017 15:54 - CONCLUSION: Minimal basilar parenchymal opacities. Michael Mac MD Course EKG NSR, nonspecific st changes in 2nd and 3rd EKGs leads 1 and AVL Caprini VTE Risk Assessment Caprini VTE Risk Assessment: Mod/High Risk (score >= 2) Caprini Risk Assessment Model Point Value = 1 Point Value = 2 Point Value = 3 Point Value = 5 Age 41-60 Minor surgery BMI > 25 kg/m2 Swollen legs Varicose veins or History of unexplained or recurrent spontaneous Oral contraceptives or hormone replacement Sepsis (< 1 month) Serious lung disease, including pneumonia (< 1 month) Abnormal pulmonary function Acute myocardial infarction Congestive heart failure (< 1 month) History of inflammatory bowel disease Medical patient at bed rest Age 61-74 Arthroscopic surgery Major open surgery (> 45 min) Laparoscopic surgery (> 45 min) Malignancy Confined to bed (> 72 hours) Immobilizing plaster cast Central venous access Age >= 75 History of VTE Family history of VTE Factor V Leiden Prothrombin [id number] Lupus anticoagulant Anticardiolipin antibodies Elevated serum homocysteine Heparin-induced thrombocytopenia Other congenital or acquired thrombophilia Stroke (< 1 month) Elective arthroplasty Hip, pelvis, or leg fracture Acute spinal cord injury (< 1 month) Prophylaxis Regimen Total Risk Factor Score Risk Level Prophylaxis Regimen 0-1 Low Early ambulation 2 Moderate Order ONE of the following: *Sequential Compression Device (SCD) *Heparin 5000 units SQ BID 3-4 Higher Order ONE of the following medications: *Heparin 5000 units SQ TID *Enoxaparin/Lovenox 40 mg SQ daily (WT < 150 kg, CrCl > 30 mL/min) *Enoxaparin/Lovenox 30 mg SQ daily (WT < 150 kg, CrCl > 10-29 mL/min) *Enoxaparin/Lovenox 30 mg SQ BID (WT < 150 kg, CrCl > 30 mL/min) AND/OR *Sequential Compression Device (SCD) 5 or more Highest Order ONE of the following medications: *Heparin 5000 units SQ TID (Preferred with Epidurals) *Enoxaparin/Lovenox 40 mg SQ daily (WT < 150 kg, CrCl > 30 mL/min) *Enoxaparin/Lovenox 30 mg SQ daily (WT < 150 kg, CrCl > 10-29 mL/min) *Enoxaparin/Lovenox 30 mg SQ BID (WT < 150 kg, CrCl > 30 mL/min) AND *Sequential Compression Device (SCD) Assessment and Plan Assessment and Plan #1 Chest pain-admitted to chest pain center. Ruled out with 3 sets of EKGs, cardiac monitoring. Seen and evaluated by Dr. Marquez Celis. Proceed with Lexiscan. If unremarkable, plans of be to discharge home. He has been strongly encouraged and stressed the importance of establishing with a surtass analyst. Verbalized understanding. Sarah Cosme Jun 04, 2017 08:15
[2017-06-04] MEDS ORDERED: ASPIRIN 325 MG TAB PO SCH (09:00)
[2017-06-04] MEDS ORDERED: SODIUM CHLORIDE 0.9% FLUSH 10 ML FLUSH IV FLUSH SCH (09:00)
--- NOTE | 2017-06-04 09:08 | EKG ---
Date Performed: 06/03/2017 Time Performed: 23:56:49 PTAGE: 66 years EKG: Sinus rhythm POSSIBLE LEFT ATRIAL ENLARGEMENT MARKED LEFT AXIS DEVIATION INCOMPLETE RIGHT BUNDLE BRANCH BLOCK NON SPECIFIC T-WAVE ABNORMALITY ABNORMAL ECG PREVIOUS TRACING : 06/03/2017 22.01 Since previous tracing, no significant change noted DOCTOR: Marquez Celis Interpretating Date/Time 06/04/2017 09:08:01
--- NOTE | 2017-06-04 09:13 | EKG ---
Date Performed: 06/03/2017 Time Performed: 22:01:37 PTAGE: 66 years EKG: Sinus rhythm MARKED LEFT AXIS DEVIATION INCOMPLETE RIGHT BUNDLE BRANCH BLOCK LEFT VENTRICULAR HYPERTROPHY AND ST- T CHANGE ABNORMAL ECG PREVIOUS TRACING : 06/03/2017 16.58 Since previous tracing, no significant change noted DOCTOR: Marquez Celis Interpretating Date/Time 06/04/2017 09:11:13
--- NOTE | 2017-06-04 09:21 | EKG ---
Date Performed: 06/03/2017 Time Performed: 16:58:25 PTAGE: 66 years EKG: Sinus rhythm MARKED LEFT AXIS DEVIATION INCOMPLETE RIGHT BUNDLE BRANCH BLOCK POSSIBLE LEFT VENTRICULAR HYPERTROPH Y NONSPECIFIC T-WAVE ABNORMALITY ABNORMAL ECG PREVIOUS TRACING : 09/03/2016 16.53 Compared to previous tracing, lateral T wave changes are im proved. DOCTOR: Marquez Celis Interpretating Date/Time 06/04/2017 09:20:09
[2017-06-04] MEDS ORDERED: REGADENOSON INJ 0.4 MG/5 ML SYR ONE (10:55)
--- NOTE | 2017-06-04 12:17 | RADRPT ---
EXAM DATE/TIME: 06/04/2017 10:38 [place] COMPARISON: No previous studies available for comparison. INDICATIONS : Left sided chest pain. Angina. DOSE: 25.5 mCi Tc99m Myoview at stress. 8.2 mCi Tc99m Myoview at rest. 0.4 mg Lexiscan STRESS SYMPTOMS: Shortness of breath and nausea. EJECTION FRACTION: 63% MEDICAL HISTORY : Hypertension. Diabetes mellitus type 2. SURGICAL HISTORY : CABG Neck surgery. ENCOUNTER: Initial ACUITY: 2 days PAIN SCALE: 3/10 LOCATION: Left chest TECHNIQUE: The patient underwent pharmacologic stress with infusion of prescribed dose. Continuous ECG tracing was monitored during stress. Gated SPECT imaging was performed after stress and conventional SPECT i maging was performed at rest. The examination was performed on a SPECT/CT scanner, both attenuation and non-corrected datasets were reviewed. FINDINGS: DISTRIBUTION: The maximum perfused segment at stress is in the septal wall. PERFUSION STUDY: The pattern of perfusion at stress is within normal limits. GATED STUDY: There is intact wall motion and thickening without hypokinetic or dyskinetic segments. CONCLUSION: 1. No significant reversibility to suggest ischemia. 2. Normal wall motion with ejection fraction 63%. RISK CATEGORY: Low (<1% Annual Mortality Rate) Jose Daniel Sarmiento MD on June 04, 2017 at 12:11 Board Certified Radiologist. This report was verified electronically.
--- NOTE | 2017-06-04 12:33 | HHI.DCPOC ---
Discharge Care Plan Diagnosis: (1) Hx of coronary artery disease (2) History of coronary artery bypass graft x 3 (3) Chest pain of unknown etiology Goals to Promote Your Health * To prevent worsening of your condition and complications * To maintain your health at the optimal level Directions to Meet Your Goals Take your medications as prescribed Follow your dietary instruction Follow activity as directed Keep your appointments as scheduled Take your immunizations and boosters as scheduled If your symptoms worsen call your PCP, if no PCP go to Urgent Care Center or Emergency Room Smoking is Dangerous to Your Health. Avoid second hand smoke Call the 24-hour hour crisis hotline for domestic abuse at Sarah Cosme Jun 04, 2017 12:33
--- NOTE | 2017-06-06 16:13 | TR ---
Date Performed: 06/04/2017 Time Performed: 10:57:10 DOCTOR: Marquez Celis DRUG LIST: CLINICAL HISTORY: REASON FOR TEST: Angina REASON FOR ENDING: OBSERVATION: CONCLUSION: Lexiscan stress test was performed under standard four minute protocol. Radionucl[place] e was injected one minute prior to ending the test. No electrocardiographic abormalities were present to suggest ischemia. Nuclear imaging and interpretation are pending. COMMENTS:
== END 2017-06-04 13:58 | disposition home or self-care (01) ==
LOC: NEPC 15:13 → NEDA 21:35 → NEPHCDU 06-04 01:42
PROVIDERS: ADMIT Internal Medicine Interventional Cardiology; ATTEND Internal Medicine Interventional Cardiology
DX: R07.89 Other chest pain (principal); R06.02 Shortness of breath; R42 Dizziness and giddiness; R11.0 Nausea; I25.119 Atherosclerotic heart disease of native coronary artery with unspecified angina pectoris; E11.9 Type 2 diabetes mellitus without complications; I11.9 Hypertensive heart disease without heart failure; E78.00 Pure hypercholesterolemia, unspecified; I45.10 Unspecified right bundle-branch block; R94.31 Abnormal electrocardiogram [ECG] [EKG]; K21.9 Gastro-esophageal reflux disease without esophagitis; F03.90 Unspecified dementia, unspecified severity, without behavioral disturbance, psychotic disturbance, mood disturbance, and anxiety; Z87.891 Personal history of nicotine dependence; Z95.1 Presence of aortocoronary bypass graft; Z79.4 Long term (current) use of insulin; Z79.899 Other long term (current) drug therapy; Z79.82 Long term (current) use of aspirin
CPT/HCPCS: 71046; 78452; 80053; 82550; 82552; 83690; 83735; 84484; 85025; 85610; 85730; 93005; 93017; 99285; A9502; G0378; J2785

== ENCOUNTER 2017-11-12 11:24 | Observation (INO) | payer OTHER ==
[~2017-11-12] VITALS: Ht 177.8 cm; Wt 92.0 kg
[~2017-11-12 11:24] MED LIST changes: -AMIO200T PO; +ASPI-516 CHEW; -ASPI1TAB69 PO; +LANTUS2P SQ; +METF500T PO; -NOVO7030P2 SQ
[2017-11-12] MEDS ORDERED: SODIUM CHLORIDE 0.9% FLUSH 10 ML FLUSH IVF PRN (11:30)
[2017-11-12] MEDS ORDERED: LIDOCAINE VISCOUS 2% SOLN 15 ML UDC PO ONE (11:30)
[2017-11-12] MEDS ORDERED: ALUMINUM/MAGNESIUM/SIMETH 30 ML CUP PO ONE (11:30)
[2017-11-12 11:36] VITALS: O2SAT 98
[2017-11-12 11:37] VITALS: BP 166/66; PULSE 68; RESP 16; TEMP 97.9; O2SAT 98
--- NOTE | 2017-11-12 11:37 | PD ---
HPI . Chest pain Chief Complaint: Chest Pain Time Seen by Provider: 11:29 Travel History International Travel<30 days: No Contact w/Intl Traveler<30days: No History of Present Illness HPI Patient presents with a chief complaint of chest pain. Onset was 1 hour ago. He states that it feels like indigestion. The pain is moderate. It is associated with mild shortness of breath. It radiates to his neck. He has met with no relief of his symptoms. He has noted no modifying factors. Patient reports prior CABG. He states that the discomfort that he is having today is different from the pain that he had prior to his CABG. His CABG was about a year ago. PFSH Past Medical History Cancer: No Cardiovascular Problems: Yes High Cholesterol: Yes Chemotherapy: No Dementia: Yes Diabetes: Yes Diminished Hearing: No GERD: Yes Genitourinary: Yes (GERD) Hypertension: Yes Immune Disorder: Yes Neurologic: Yes (Dementia ) Psychiatric: No Reproductive: No Respiratory: No Immunizations Current: No Radiation Therapy: No Past Surgical History Coronary Artery Bypass Graft: Yes Other Surgery: Yes (neck surgery and left leg surgery CABG) Social History Alcohol Use: No Tobacco Use: No Substance Use: No Allergies-Medications (Allergen,Severity, Reaction): Coded Allergies: No Known Allergies (Unverified , 11/12/17) Reported Meds & Prescriptions Reported Meds & Active Scripts Active Thera M Plus (Multivitamins/Minerals Therapeutic) 1 Tab 1 Tab PO DAILY Metoprolol Tartrate 25 Mg Tab 25 Mg PO BID Lisinopril 10 Mg Tab 10 Mg PO DAILY Dok (Docusate Sodium) 100 Mg Cap 100 Mg PO BID Reported Viagra (Sildenafil Citrate) 100 Mg Tab 100 Mg PO DAILY PRN Victoza 3-Gianni (Liraglutide) 0.6 Mg/0.1 Ml (18 Mg/3 Ml) Pen.injctr Cilostazol 100 Mg Tab 100 Mg PO BID Amiodarone (Amiodarone HCl) 200 Mg Tab 200 Mg PO BID Metformin (Metformin HCl) 500 Mg Tab 500 Mg PO BIDPC Lantus Inj (Insulin Glargine) 1,000 Unit/10 Ml Vial 70 Units SQ DAILY Aspirin 81 Mg Chew 81 Mg CHEW DAILY Simvastatin 80 Mg Tab 80 Mg PO DAILY Tramadol (Tramadol HCl) 50 Mg Tab 50 Mg PO TID PRN Omeprazole 20 Mg Tab 20 Mg PO BID Sertraline (Sertraline HCl) 100 Mg Tab 100 Mg PO BID Gabapentin 300 Mg Cap 300 Mg PO QID Review of Systems Except as stated in HPI: all other systems reviewed are Neg Physical Exam Narrative GENERAL: Awake and alert and in no acute distress. SKIN: warm/dry. Normal color. HEAD: Normocephalic. Atraumatic. EYES: Pupils equal and round. Extraocular movements are intact. ENT: Mucous membranes pink and moist. NECK: Supple. Full range of motion without pain.. CARDIOVASCULAR: Regular rate and rhythm. Heart sounds normal. Healed vertical sternotomy scar. RESPIRATORY: No accessory muscle use. Clear to auscultation. Breath sounds equal bilaterally. GASTROINTESTINAL: Abdomen soft. Nontender. Bowel sounds present. Nondistended. MUSCULOSKELETAL: No obvious deformities. Normal muscle tone. NEUROLOGICAL: Awake and alert. No obvious cranial nerve deficits. Motor grossly within normal limits. Normal speech. PSYCHIATRIC: Appropriate mood and affect; insight and judgment normal. Data Data Last Documented VS Vital Signs Date Time Temp Pulse Resp B/P (MAP) Pulse Ox O2 Delivery O2 Flow Rate FiO2 11/12/17 11:46 98 Room Air 11/12/17 11:37 97.9 68 16 166/66 (99) Orders Orders Electrocardiogram (11/12/17 11:30) Basic Metabolic Panel (Bmp) (11/12/17 11:30) Complete Blood Count With Diff (11/12/17 11:30) Magnesium (Mg) (11/12/17 11:30) Troponin I (11/12/17 11:30) Ecg Monitoring (11/12/17 11:30) Iv Access Insert/Monitor (11/12/17 11:30) Oximetry (11/12/17 11:30) Sodium Chloride 0.9% Flush (Ns Flush) (11/12/17 11:30) Chest, Pa & Lat (11/12/17 11:30) Al-Mag Hy-Si 40-40-4 Mg/Ml Liq (Mag-Al P (11/12/17 11:30) Lidocaine 2% Viscous (Xylocaine 2% Visco (11/12/17 11:30) Nitroglycerin 2% Oint (Nitroglycerin 2% (11/12/17 12:45) Morphine Inj (Morphine Inj) (11/12/17 12:45) Labs Laboratory Tests Test 11/12/17 11:36 White Blood Count 6.0 TH/MM3 Red Blood Count 4.89 MIL/MM3 Hemoglobin 15.4 GM/DL Hematocrit 45.8 % Mean Corpuscular Volume 93.6 FL Mean Corpuscular Hemoglobin 31.4 PG Mean Corpuscular Hemoglobin Concent 33.6 % Red Cell Distribution Width 12.8 % Platelet Count 207 TH/MM3 Mean Platelet Volume 7.9 FL Neutrophils (%) (Auto) 65.0 % Lymphocytes (%) (Auto) 22.0 % Monocytes (%) (Auto) 8.1 % Eosinophils (%) (Auto) 3.7 % Basophils (%) (Auto) 1.2 % Neutrophils # (Auto) 3.9 TH/MM3 Lymphocytes # (Auto) 1.3 TH/MM3 Monocytes # (Auto) 0.5 TH/MM3 Eosinophils # (Auto) 0.2 TH/MM3 Basophils # (Auto) 0.1 TH/MM3 CBC Comment DIFF FINAL Differential Comment Blood Urea Nitrogen 30 MG/DL Creatinine 0.94 MG/DL Random Glucose 250 MG/DL Calcium Level 9.0 MG/DL Magnesium Level 2.0 MG/DL Sodium Level 135 MEQ/L Potassium Level 4.5 MEQ/L Chloride Level 101 MEQ/L Carbon Dioxide Level 24.7 MEQ/L Anion Gap 9 MEQ/L Estimat Glomerular Filtration Rate 80 ML/MIN Troponin I LESS THAN 0.02 NG/ML Exceptions Acute Myocardial Infarction ASA Not Given on Arrival: Already taken by patient MDM Medical Decision Making Medical Screen Exam Complete: Yes Emergency Medical Condition: Yes Interpretation(s) EKG shows a normal sinus rhythm. No acute ischemic changes. Differential Diagnosis Differential diagnosis of chest pain includes but is not limited to musculoskeletal pain, pulmonary embolism, acute coronary syndrome, pneumonia, pleurisy Narrative Course This patient presents with chest pain. He describes indigestion. He has a previous history of coronary artery disease and is status post a CABG a year ago. He states that his discomfort today is different than the discomfort that he had prior to the CABG. Chest pain workup is in progress. I will give him a GI cocktail prior to giving him any cardiac medication. Last Impressions Chest X-Ray 11/12/17 1130 Signed Impressions: CONCLUSION: History of bypass otherwise negative The chest x-ray was independently reviewed by me. CBC & BMP Diagram 11/12/17 11:36 Calcium Level 9.0, Magnesium Level 2.0 trop < 0.02 Patient reports minimal if any relief of his indigestion with the GI cocktail. I have subsequently ordered morphine and Nitropaste. I will request an admission to the chest pain center for further evaluation. Physician Communication Physician Communication Dr. Peñaloza Diagnosis Primary Impression: Chest pain Qualified Codes: R07.9 - Chest pain, unspecified Admitting Information Admitting Physician Requests: Observation Condition: Stable Rubi Hernandez MD Nov 12, 2017 11:37
--- NOTE | 2017-11-12 11:45 | RADRPT ---
EXAM DATE: 11/12/2017 11:41 AM EDT AGE/SEX: 67 years / Male INDICATIONS: Chest pain CLINICAL DATA: This is the patient's initial encounter. Patient reports that signs and symptoms have been present for 1 day and indicates a pain score of 10/10. MEDICAL/SURGICAL HISTORY: Hypertension. Diabetes. CABG. COMPARISON: [facility] [place], CHEST PA & LAT, 06/03/2017. . FINDINGS: Sternal wires previous bypass are noted. Lungs are clear. The heart and pulmonary vascularity are nor mal. The portion of the bony skeleton visualized is unremarkable. CONCLUSION: History of bypass otherwise negative Electronically signed by: Erik Ann MD 11/12/2017 11:44 AM EDT
[2017-11-12] MEDS ORDERED: CILO100T PO (11:51)
[2017-11-12] MEDS ORDERED: AMIO200T PO (11:51)
[2017-11-12 11:52] LABS: CHLORIDE 101 MEQ/L (98-107); SODIUM (NA) 135 MEQ/L (136-145)
[2017-11-12] MEDS ORDERED: VICT18IN2 (11:53)
[2017-11-12] MEDS ORDERED: VIAG100T PO (11:54)
[2017-11-12 11:57] LABS: BICARBONATE 24.7 MEQ/L (21.0-32.0); BLOOD UREA NITROGEN 30 MG/DL (7-18); GLUCOSE,RANDOM 250 MG/DL (74-106)
[2017-11-12 12:00] LABS: CREATININE 0.94 MG/DL (0.60-1.30); GLOMERULAR FILTRATION RATE 80 ML/MIN (>89)
[2017-11-12 12:05] LABS: TROPONIN I LESS THAN 0.02 NG/ML (0.02-0.05)
[2017-11-12 12:08] LABS: AUTOMATED NEUTROPHIL # 3.9 TH/MM3 (1.8-7.7); BASOPHIL # 0.1 TH/MM3 (0-0.2); BASOPHIL % 1.2 % (0.0-2.0); EOSINOPHIL # 0.2 TH/MM3 (0-0.4); EOSINOPHIL % 3.7 % (0.0-4.0); HEMATOCRIT 45.8 % (39.0-51.0); HEMOGLOBIN 15.4 GM/DL (13.0-17.0); LYMPHOCYTE # 1.3 TH/MM3 (1.0-4.8); MEAN CELL VOLUME 93.6 FL (80.0-100.0); MEAN CORPUSCULAR HEMOGLOBIN 31.4 PG (27.0-34.0); MEAN CORPUSCULAR HGB CONC 33.6 % (32.0-36.0); MEAN PLATELET VOLUME 7.9 FL (7.0-11.0); MONO % 8.1 % (0.0-8.0); MONOCYTE # 0.5 TH/MM3 (0-0.9); PLATELET COUNT 207 TH/MM3 (150-450); RED BLOOD COUNT 4.89 MIL/MM3 (4.50-5.90); RED CELL DISTRIBUTION WIDTH 12.8 % (11.6-17.2)
[2017-11-12] MEDS ORDERED: MORPHINE SULFATE 2 MG/ML SYRINGE IV PUSH ONE (12:45)
[2017-11-12] MEDS ORDERED: NITROGLYCERIN 2% OINT 1 GM PACKET TOPICAL ONE (12:45)
[2017-11-12 12:50] VITALS: BP 145/71; PULSE 69; RESP 16; O2SAT 96
[2017-11-12] MEDS ORDERED: SODIUM CHLORIDE 0.9% FLUSH 10 ML FLUSH IV FLUSH PRN (13:00)
[2017-11-12] MEDS ORDERED: PANTOPRAZOLE SOD 40 MG DELAYED RELEASE TAB PO SCH (13:00)
[2017-11-12] MEDS ORDERED: ACETAMINOPHEN 500 MG CPLT PO PRN (13:00)
--- NOTE | 2017-11-12 13:25 | EKG ---
Date Performed: 11/12/2017 Time Performed: 11:27:22 PTAGE: 67 years EKG: Sinus rhythm MARKED LEFT AXIS DEVIATION LEFT VENTRICULAR HYPERTROPHY AND ST-T CHANGE ABNORMAL ECG INTERPRETATION BASED ON A DEFAULT AGE OF 40 YEARS PREVIOUS TRACING : 06/03/2017 23.56 DOCTOR: Samy Phoenix Interpretating Date/Time 11/12/2017 13:24:58
[2017-11-12 13:40] VITALS: O2SAT 96
[2017-11-12 14:10] VITALS: BP 126/73; PULSE 70; RESP 20; TEMP 96.7; O2SAT 96
[2017-11-12 14:13] VITALS: BP 138/69; PULSE 71; RESP 17; O2SAT 96
--- NOTE | 2017-11-12 14:47 | HHI.DCPOC ---
Discharge Care Plan Diagnosis: (1) Chest pain Goals to Promote Your Health * To prevent worsening of your condition and complications * To maintain your health at the optimal level Directions to Meet Your Goals Take your medications as prescribed Follow your dietary instruction Follow activity as directed Keep your appointments as scheduled Take your immunizations and boosters as scheduled If your symptoms worsen call your PCP, if no PCP go to Urgent Care Center or Emergency Room Smoking is Dangerous to Your Health. Avoid second hand smoke Call the 24-hour hour crisis hotline for domestic abuse at Ramakrishna Kumari Nov 12, 2017 14:47
--- NOTE | 2017-11-12 17:02 | HHI.HP ---
[facility] Ad[facility] Diagnosis chest pain Diagnoses: (1) Chest pain of unknown etiology Diagnosis: Principal Chief Complaint: Upper chest and throat pain Travel History International Travel<30 Days: No Contact w/Intl Traveler <30 Da: No Traveled to Known Affected Are: No History of Present Illness 78-year-old male with known history of hypertension, hyper lipidemia, diabetes, diabetic neuropathy who presented to the emergency department because of throat pain and upper chest pain. Patient describes the pain as a burning sensation like heartburn. It started approximately 9-930 this morning and it was a 5/10 on a pain scale last for couple seconds and going away and continued to present itself throughout the morning. Patient took his blood pressure is 180/80 and his thought he was having a stroke so they brought him to the hospital for evaluation. Patient states that he does have history of heartburn which she has not had in years. Patient does have a rather complex cardiac history recently. He just had bypass surgery done in July 2016. Patient just underwent myocardial perfusion study in May 2017. He is followed closely by drugless doctor Dr. Hubbard. Because of the patient's symptoms is recommended by the ER physician the patient be observed in chest pain center for further evaluation and management. Patient denies any nausea, vomiting, diaphoresis, lightheadedness, dizziness, radiation of pain into the back, shoulder, arms. Review of Systems Cardiovascular: COMPLAINS OF: Chest pain Except as stated in HPI: all other systems reviewed are Neg Past Family Social History Past Medical History Hypertension Diabetes Diabetic neuropathy Coronary artery disease status post CABG Hyperlipidemia Past Surgical History Coronary bypass surgery Reported Medications Reported Meds & Active Scripts Active Thera M Plus (Multivitamins/Minerals Therapeutic) 1 Tab 1 Tab PO DAILY Metoprolol Tartrate 25 Mg Tab 25 Mg PO BID Lisinopril 10 Mg Tab 10 Mg PO DAILY Dok (Docusate Sodium) 100 Mg Cap 100 Mg PO BID Reported Viagra (Sildenafil Citrate) 100 Mg Tab 100 Mg PO DAILY PRN Victoza 3-Gianni (Liraglutide) 0.6 Mg/0.1 Ml (18 Mg/3 Ml) Pen.injctr Cilostazol 100 Mg Tab 100 Mg PO BID Amiodarone (Amiodarone HCl) 200 Mg Tab 200 Mg PO BID Metformin (Metformin HCl) 500 Mg Tab 500 Mg PO BIDPC Lantus Inj (Insulin Glargine) 1,000 Unit/10 Ml Vial 70 Units SQ DAILY Aspirin 81 Mg Chew 81 Mg CHEW DAILY Simvastatin 80 Mg Tab 80 Mg PO DAILY Tramadol (Tramadol HCl) 50 Mg Tab 50 Mg PO TID PRN Omeprazole 20 Mg Tab 20 Mg PO BID Sertraline (Sertraline HCl) 100 Mg Tab 100 Mg PO BID Gabapentin 300 Mg Cap 300 Mg PO QID Allergies: Coded Allergies: No Known Allergies (Unverified , 11/12/17) Family History Reviewed is significant for mother at age 89 from heart disease, father at age 90 with cancer Social History Patient quit smoking in 2009, prior to that he smoked 2 pack of cigarettes a day since he was 10 years old. Patient denies any alcohol or illicit drugs Physical Exam Vital Signs Vital Signs Date Time Temp Pulse Resp B/P (MAP) Pulse Ox O2 Delivery O2 Flow Rate FiO2 11/12/17 14:13 71 17 138/69 (92) 96 Room Air 11/12/17 14:10 96.7 70 20 126/73 (90) 96 11/12/17 14:05 11/12/17 13:40 96 21 11/12/17 12:51 16 11/12/17 12:50 69 16 145/71 (95) 96 Room Air 11/12/17 11:46 98 Room Air 11/12/17 11:37 97.9 68 16 166/66 (99) 98 11/12/17 11:36 98 Room Air Physical Exam GENERAL: Well-developed, well-nourished, in no acute distress. alert and orientated HEENT: Head is normocephalic without any lesions or masses noted. Facial features are symmetric. Eyes: Pupils equal round reactive to light. Extraocular muscles are intact. Conjunctivae were clear. Oropharyngeal: Pharynx without any erythema edema. Tongue is midline without deviation. Buccal mucosa is moist without any masses or lesions NECK: Supple without any masses. Trachea midline no deviation. No JVD, no bruits are appreciated CARDIAC: Regular rhythm, regular rate. S1/S2 are heard. No murmurs gallops or rubs. LUNGS: Clear to auscultation bilaterally. No wheeze, rhonchi or rales. No use of accessory muscles on inspiration or expiration. ABDOMEN: Soft, nontender. Nondistended. Bowel sounds heard in all 4 quadrants. No organomegaly or masses. Negative rebound, negative guarding EXTREMITIES: No edema, pulses are equal bilaterally. No cyanosis or clubbing NEUROLOGY: Mood and affect appear appropriate. Cranial nerves II through XII grossly intact. Muscle strength 5/5 in upper and lower extremities bilaterally. Deep tendon reflexes are 2+ in upper and lower extremities bilaterally. Laboratory Laboratory Tests Test 11/12/17 11:36 White Blood Count 6.0 Red Blood Count 4.89 Hemoglobin 15.4 Hematocrit 45.8 Mean Corpuscular Volume 93.6 Mean Corpuscular Hemoglobin 31.4 Mean Corpuscular Hemoglobin Concent 33.6 Red Cell Distribution Width 12.8 Platelet Count 207 Mean Platelet Volume 7.9 Neutrophils (%) (Auto) 65.0 Lymphocytes (%) (Auto) 22.0 Monocytes (%) (Auto) 8.1 Eosinophils (%) (Auto) 3.7 Basophils (%) (Auto) 1.2 Neutrophils # (Auto) 3.9 Lymphocytes # (Auto) 1.3 Monocytes # (Auto) 0.5 Eosinophils # (Auto) 0.2 Basophils # (Auto) 0.1 CBC Comment DIFF FINAL Differential Comment Blood Urea Nitrogen 30 Creatinine 0.94 Random Glucose 250 Calcium Level 9.0 Magnesium Level 2.0 Sodium Level 135 Potassium Level 4.5 Chloride Level 101 Carbon Dioxide Level 24.7 Anion Gap 9 Estimat Glomerular Filtration Rate 80 Troponin I LESS THAN 0.02 Result Diagram: 11/12/17 1136 11/12/17 1136 Imaging Last Impressions Chest X-Ray 11/12/17 1130 Signed Impressions: CONCLUSION: History of bypass otherwise negative Caprini VTE Risk Assessment Caprini VTE Risk Assessment: Mod/High Risk (score >= 2) Caprini Risk Assessment Model Point Value = 1 Point Value = 2 Point Value = 3 Point Value = 5 Age 41-60 Minor surgery BMI > 25 kg/m2 Swollen legs Varicose veins or History of unexplained or recurrent spontaneous Oral contraceptives or hormone replacement Sepsis (< 1 month) Serious lung disease, including pneumonia (< 1 month) Abnormal pulmonary function Acute myocardial infarction Congestive heart failure (< 1 month) History of inflammatory bowel disease Medical patient at bed rest Age 61-74 Arthroscopic surgery Major open surgery (> 45 min) Laparoscopic surgery (> 45 min) Malignancy Confined to bed (> 72 hours) Immobilizing plaster cast Central venous access Age >= 75 History of VTE Family history of VTE Factor V Leiden Prothrombin [id number] Lupus anticoagulant Anticardiolipin antibodies Elevated serum homocysteine Heparin-induced thrombocytopenia Other congenital or acquired thrombophilia Stroke (< 1 month) Elective arthroplasty Hip, pelvis, or leg fracture Acute spinal cord injury (< 1 month) Prophylaxis Regimen Total Risk Factor Score Risk Level Prophylaxis Regimen 0-1 Low Early ambulation 2 Moderate Order ONE of the following: *Sequential Compression Device (SCD) *Heparin 5000 units SQ BID 3-4 Higher Order ONE of the following medications: *Heparin 5000 units SQ TID *Enoxaparin/Lovenox 40 mg SQ daily (WT < 150 kg, CrCl > 30 mL/min) *Enoxaparin/Lovenox 30 mg SQ daily (WT < 150 kg, CrCl > 10-29 mL/min) *Enoxaparin/Lovenox 30 mg SQ BID (WT < 150 kg, CrCl > 30 mL/min) AND/OR *Sequential Compression Device (SCD) 5 or more Highest Order ONE of the following medications: *Heparin 5000 units SQ TID (Preferred with Epidurals) *Enoxaparin/Lovenox 40 mg SQ daily (WT < 150 kg, CrCl > 30 mL/min) *Enoxaparin/Lovenox 30 mg SQ daily (WT < 150 kg, CrCl > 10-29 mL/min) *Enoxaparin/Lovenox 30 mg SQ BID (WT < 150 kg, CrCl > 30 mL/min) AND *Sequential Compression Device (SCD) Assessment and Plan Assessment and Plan Chest pain, atypical -Patient with increased risk factors include age, hypertension, hyper edema, coronary disease, diabetes -Patient presentation is very atypical, initial troponin and EKG do not show any acute changes -Patient with recent cardiac bypass in July 2016, recent myocardial perfusion study done in May 2017. -Discussed with patient's drugless doctor Dr. Hubbard, notified him of patient's presenting symptoms and he indicated that patient presentation is very atypical , indicated patient recent bypass surgery as well as myocardial perfusion study. He indicated patient can be discharged home with outpatient follow-up -Patient to resume home medications Diabetes -Patient resume home medications on discharge -Diabetic diet Hypertension, hyper lipidemia, coronary disease -Patient resume home medication Discharge disposition Discharge home in stable condition Activity: Ad juan. Diet: Diabetic diet Medication per medication reconciliation Follow-up with primary medical doctor in 1 week Ramakrishna Kumari Nov 12, 2017 17:02
[2017-11-12] MEDS ORDERED: SODIUM CHLORIDE 0.9% FLUSH 10 ML FLUSH IV FLUSH SCH (21:00)
== END 2017-11-12 16:33 | disposition home or self-care (01) ==
LOC: PHED 11:24 → PHEDA 12:49 → PH3A 14:09
PROVIDERS: ADMIT Hospitalist; ATTEND Hospitalist
DX: R07.89 Other chest pain (principal); R06.02 Shortness of breath; I25.10 Atherosclerotic heart disease of native coronary artery without angina pectoris; I11.9 Hypertensive heart disease without heart failure; R94.31 Abnormal electrocardiogram [ECG] [EKG]; E11.40 Type 2 diabetes mellitus with diabetic neuropathy, unspecified; F03.90 Unspecified dementia, unspecified severity, without behavioral disturbance, psychotic disturbance, mood disturbance, and anxiety; E78.5 Hyperlipidemia, unspecified; Z87.891 Personal history of nicotine dependence; Z95.1 Presence of aortocoronary bypass graft; Z79.899 Other long term (current) drug therapy; Z79.82 Long term (current) use of aspirin
CPT/HCPCS: 71046; 80048; 83735; 84484; 85025; 93005; 96374; 99285; G0378; J2270